=== PATIENT | female | born 1935 | race Caucasian/White ===

== ENCOUNTER 2016-09-12 22:17 | Inpatient (IN) | payer MEDICARE ==
[2016-09-12 23:31] LABS: Hematocrit 40 % (35-47); Hemoglobin 13.1 g/dl (12.0-16.0); Mean Corpuscular HGB Conc 33 g/dl (31-36); Mean Corpuscular Hemoglobin 29 pg (27-31); Mean Corpuscular Volume 89 fL (80-97); Mean Platelet Volume 11 um3 (7.4-10.4); Red Blood Count 4.46 10^6/ul (4.0-5.4); Red Cell Distribution Width 14 % (10.5-15)
[2016-09-12 23:41] LABS: Albumin 3.7 g/dL (3.2-5.2); BUN/Creatinine Ratio 18.2 (8-20); Calcium 9.2 mg/dL (8.6-10.3); EGFR African American 69.2 (>60); EGFR Non-African American 53.8 (>60); Globulin 2.6 g/dL (2-4); Magnesium 1.6 mg/dL (1.9-2.7); Total Bilirubin 0.5 mg/dL (0.2-1.0); Total Protein 6.3 g/dL (6.4-8.9)
[2016-09-12 23:43] LABS: Troponin I 0.03 ng/mL (<0.04)
--- NOTE | 2016-09-13 | ED ---
Kerrie Mcdonald Alfonso, scribed for Rafy Kelly MD on 09/12/16 at 2319 . HPI Chest Pain - HPI Summary HPI Summary: This patient is an 81 year old female presenting to [facility] c/o pain in her shoulder blades that began at 2129. She reports the pain is present at rest and is also in her back. She rates the pain 1/10 in severity. 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 She reports nausea. She denies SOB and diaphoresis. PMHx of [place] (2 years ago). - History of Current Complaint Chief Complaint: EDChestWallPain Time Seen by Provider: 09/12/16 22:49 Hx Obtained From: Patient Onset/Duration: Started Hours Ago - 2129 today, Still Present Timing: Constant Initial Severity: Mild Current Severity: Mild Pain Intensity: 1 Pain Scale Used: 0-10 Numeric Chest Pain Location: Discrete at: - Shoulder blades and back Aggravating Factor(s): Nothing Alleviating Factor(s): NTG 123 - NTGx1, OTC Meds - Baby ASAx1 Associated Signs and Symptoms: Positive: Nausea. Negative: Shortness of Breath , Diaphoresis - Additional Pertinent History Primary Care Physician: [id number] - Allergy/Home Medications Allergies/Adverse Reactions: Allergies Allergy/AdvReac Type Severity Reaction Status Date / Time Codeine Allergy Severe Nausea And Verified 01/05/16 04:11 Vomiting Levofloxacin [From Levaquin] Allergy Severe Tachycardia Verified 01/05/16 04:11 PMH/Surg Hx/FS Hx/Imm Hx Endocrine/Hematology History: Reports: Hx Blood Transfusions, Hx Diabetes - niddm Denies: Hx Anticoagulant Therapy Cardiovascular History: Reports: Hx Angina, Hx Coronary Artery Disease, Hx Hypercholesterolemia, Hx Hypertension - ON MEDS, Hx Myocardial Infarction Denies: Hx Valvular Heart Disease GI History: Reports: Hx Ileostomy - reversed. pt does not know why she had this Denies: Other GI Disorders History: Reports: Hx Acute Renal Failure - kidney removed in 1979, Hx Renal Disease - right nephrectomy Musculoskeletal History: Reports: Hx Arthritis - RIGHT LEG, BACK, Hx Osteoporosis Sensory History: Reports: Hx Cataracts, Hx Contacts or Glasses Denies: Hx Hearing Aid Opthamlomology History: Reports: Hx Cataracts, Hx Contacts or Glasses Neurological History: Denies: Hx Seizures - Surgical History Surgery Procedure, Year, and Place: 5 CYSTS SURGERY AN INFANT ON NECK, [facility] APPENDECTOMY, AGE 5, [facility]. TONSILECTOMY, AGE 6-7, [facility] C SECTION 1966, [facility] RIGHT NEPHRECTOMY, 1979, [facility] COLOSTOMY, 2008, [facility] REVERSAL COLOSTOMY, 2008, [facility] HERNIA 2009, [facility]x Anesthesia Reactions: No - Immunization History Date of Tetanus Vaccine: utd Date of Influenza Vaccine: 12/21/15 Infectious Disease History: No Infectious Disease History: Denies: Traveled Outside the [place] in Last 30 Days - Family History Known Family History: Positive: Diabetes, Other - Positive cancer Family History: No FHx of Malignant Hyperthermia. No FHx of Anesthesia Reaction - Social History Alcohol Use: None Substance Use Type: Reports: None Smoking Status (MU): Former Smoker Type: Cigarettes Amount Used/How Often: 1 pack per day Length of Time of Smoking/Using Tobacco: 30 yrs Have You Smoked in the Last Year: No Review of Systems Negative: Skin Diaphoresis Positive: Chest Pain - Pain in her shoulder blades and back Negative: Shortness Of Breath Positive: Nausea All Other Systems Reviewed And Are Negative: Yes Physical Exam Triage Information Reviewed: Yes Vital Signs On Initial Exam: Initial Vitals BP 178/76 09/12/16 22:39 Vital Signs Reviewed: Yes Appearance: Positive: Well-Appearing Skin: Positive: Warm Head/Face: Positive: Normal Head/Face Inspection Eyes: Positive: LEÓN ENT: Positive: Hearing grossly normal Neck: Positive: Supple Respiratory/Lung Sounds: Positive: Clear to Auscultation, Breath Sounds Present Cardiovascular: Positive: RRR Abdomen Description: Positive: Nontender, Soft Bowel Sounds: Positive: Present Musculoskeletal: Positive: Strength/ROM Intact Neurological: Positive: Alert, Oriented to Person Place, Time - Alexandrea Coma Scale Coma Scale Total: 15 Diagnostics - Vital Signs Vital Signs Temp Pulse Resp BP Pulse Ox 09/12/16 22:44 81 09/12/16 22:41 91 92 09/12/16 22:40 98.1 F 79 20 /76 94 09/12/16 22:39 - Laboratory Lab Results: Lab Results 09/12/16 09/12/16 09/12/16 Range/Units 23:06 23:06 23:06 WBC 8.0 (3.5-10.8) 10^3/ul RBC 4.46 (4.0-5.4) 10^6/ul Hgb 13.1 (12.0-16.0) g/dl Hct 40 (35-47) % MCV 89 (80-97) fL MCH 29 (27-31) pg MCHC 33 (31-36) g/dl RDW 14 (10.5-15) % Plt Count 146 L (150-450) 10^3/ul MPV 11 H (7.4-10.4) um3 Neut % (Auto) 57.9 (38-83) % Lymph % (Auto) 24.3 L (25-47) % [place] % (Auto) 12.7 H (1-9) % Eos % (Auto) 4.0 (0-6) % Baso % (Auto) 1.1 (0-2) % Absolute Neuts (auto) 4.6 (1.5-7.7) 10^3/ul Absolute Lymphs (auto) 1.9 (1.0-4.8) 10^3/ul Absolute Monos (auto) 1.0 H (0-0.8) 10^3/ul Absolute Eos (auto) 0.3 (0-0.6) 10^3/ul Absolute Basos (auto) 0.1 (0-0.2) 10^3/ul Absolute Nucleated RBC 0.01 10^3/ul Nucleated RBC % 0.2 D-Dimer, Quantitative < 200 (Less Than 230) ng/mL Sodium 135 (133-145) mmol/L Potassium 4.0 (3.5-5.0) mmol/L Chloride 102 (101-111) mmol/L Carbon Dioxide 23 (22-32) mmol/L Anion Gap 10 (2-11) mmol/L BUN 18 (6-24) mg/dL Creatinine 0.99 H (0.51-0.95) mg/dL Est GFR ( Amer) 69.2 (>60) Est GFR (Non-Af Amer) 53.8 (>60) BUN/Creatinine Ratio 18.2 (8-20) Glucose 263 H (70-100) mg/dL Lactic Acid (0.5-2.0) mmol/L Calcium 9.2 (8.6-10.3) mg/dL Magnesium 1.6 L (1.9-2.7) mg/dL Total Bilirubin 0.50 (0.2-1.0) mg/dL AST 30 (13-39) U/L ALT 23 (7-52) U/L Alkaline Phosphatase 108 H (34-104) U/L Troponin I 0.03 (<0.04) ng/mL Total Protein 6.3 L (6.4-8.9) g/dL Albumin 3.7 (3.2-5.2) g/dL Globulin 2.6 (2-4) g/dL Albumin/Globulin Ratio 1.4 (1-3) / Range/Units 23:06 WBC (3.5-10.8) 10^3/ul RBC (4.0-5.4) 10^6/ul Hgb (12.0-16.0) g/dl Hct (35-47) % MCV (80-97) fL MCH (27-31) pg MCHC (31-36) g/dl RDW (10.5-15) % Plt Count (150-450) 10^3/ul MPV (7.4-10.4) um3 Neut % (Auto) (38-83) % Lymph % (Auto) (25-47) % [place] % (Auto) (1-9) % Eos % (Auto) (0-6) % Baso % (Auto) (0-2) % Absolute Neuts (auto) (1.5-7.7) 10^3/ul Absolute Lymphs (auto) (1.0-4.8) 10^3/ul Absolute Monos (auto) (0-0.8) 10^3/ul Absolute Eos (auto) (0-0.6) 10^3/ul Absolute Basos (auto) (0-0.2) 10^3/ul Absolute Nucleated RBC 10^3/ul Nucleated RBC % D-Dimer, Quantitative (Less Than 230) ng/mL Sodium (133-145) mmol/L Potassium (3.5-5.0) mmol/L Chloride (101-111) mmol/L Carbon Dioxide (22-32) mmol/L Anion Gap (2-11) mmol/L BUN (6-24) mg/dL Creatinine (0.51-0.95) mg/dL Est GFR ( Amer) (>60) Est GFR (Non-Af Amer) (>60) BUN/Creatinine Ratio (8-20) Glucose (70-100) mg/dL Lactic Acid 1.8 (0.5-2.0) mmol/L Calcium (8.6-10.3) mg/dL Magnesium (1.9-2.7) mg/dL Total Bilirubin (0.2-1.0) mg/dL AST (13-39) U/L ALT (7-52) U/L Alkaline Phosphatase (34-104) U/L Troponin I (<0.04) ng/mL Total Protein (6.4-8.9) g/dL Albumin (3.2-5.2) g/dL Globulin (2-4) g/dL Albumin/Globulin Ratio (1-3) Result Diagrams: 09/12/16 23:06 09/12/16 23:06 Lab Statement: Any lab studies that have been ordered have been reviewed, and results considered in the medical decision making process. - Radiology CXR Radiology Interpretation Completed By: ED Physician - No acute disease - EKG 2243 Cardiac Rate: NL - BPM 82 EKG Rhythm: Sinus Rhythm EKG Interpretation: RBBB Re-Evaluation - Re-Evaluation First Eval Comment: results d/w pt, slightly elevatewd troponin, will admit, d/w hospitalist Chest Pain Course/Dx - Diagnoses Provider Diagnoses: Coronary artery disease - Provider Notifications Instructed by Provider To: Admit As Inpatient Discharge - Discharge Plan Condition: Fair Disposition: ADMITTED TO [facility] Referrals: Edgardo Ahn MD [Primary Care Provider] - The documentation as recorded by the Kerrie babcock Alfonso accurately reflects the service I personally performed and the decisions made by me, Rafy Kelly MD.
--- NOTE | 2016-09-13 07:14 | RAD ---
INDICATION: Chest pain. COMPARISON: Comparison is made with a prior chest CT study from January 05, 2016. Correlation is also made with an exam from June 04, 2009. TECHNIQUE: Dual-energy PA and lateral views of the chest were obtained. FINDINGS: The heart is within normal limits in size. Mediastinal and hilar contours appear within normal limits. The lungs are hyperinflated. There is bilateral apical pleural-parenchymal scarring. The lungs are otherwise clear. No pleural effusion is seen. IMPRESSION: FINDINGS SUGGESTIVE OF COPD, NO EVIDENCE FOR ACUTE FINDING.
[2016-09-13] MEDS ORDERED: Aspirin TAB* 325 MG PO ONE (08:31)
[2016-09-13] MEDS ORDERED: Nitroglycerin TAB 0.4 MG* 0.4 MG TAB SL PRN (08:31)
[2016-09-13] MEDS ORDERED: MAGNESIUM SULFATE IVPB ONE (08:58)
[2016-09-13] MEDS ORDERED: Dextrose 50% Syringe 50 ML* 25 GM/50 ML SYRINGE IV PUSH PRN (09:01)
[2016-09-13] MEDS: Metoprolol Succinate XL TAB* 25 MG PO SCH (10:49)
[2016-09-13] MEDS: Losartan TAB* 25 MG PO SCH (10:49)
[2016-09-13] MEDS: glipiZIDE TAB* 5 MG PO SCH ×2 (10:49→21:38)
[2016-09-13] MEDS: Insulin LISPRO* 1 UNITS UNIT SUBCUT SCH ×3 (12:46→21:39)
[2016-09-13] MEDS: Heparin VIAL(*) 5000 UNITS/ML VIAL (FIVE THOUSAND) SUBCUT SCH ×2 (13:37→21:42)
--- NOTE | 2016-09-13 15:50 | HP ---
CC: Edgardo Ahn MD; Octavio Benjamin MD HISTORY AND PHYSICAL: DATE OF ADMISSION: 09/13/16 TIME OF EVALUATION: 08:30 a.m. PRIMARY CARE PROVIDER: Edgardo Ahn MD STRINGED INSTRUMENT TUNER: Octavio Benjamin MD CHIEF COMPLAINT: Right shoulder blade pain. HISTORY OF PRESENT ILLNESS: Mrs. Bonner is an 81-year-old lady with a past medical history of jeff nary artery disease, status post stent; type 2 diabetes; solitary left kidney, status post right nep hrectomy; hypertension; hyperlipidemia; osteoarthritis; obesity, who presents to the emergency room with complaints of discomfort around her right shoulder blade area. The patient states she was in her usual state of health until she was getting ready to go to bed las t night when she started to have light twinges of discomfort around her right shoulder blade area. She states that the pain was dull in nature and it progressed to the point that it became 8/10 inten sity. She states that the discomfort was similar to the pain she had when she had her heart attack in 2015 and she took 1 nitroglycerin. The pain subsided a little, but it was still present, so she decided to come to the emergency room for further evaluation. She states that after she took the ni tro, she has felt a little nauseated, but did not vomit. She denies diaphoresis, shortness of breat h, dizziness, lightheadedness, but she was concerned because the nature of the symptoms were similar to the symptoms she experienced in the past. She denies doing any different activities yesterday. She states that she did not even need to go pi ck up her mail outside because her neighbor brought it for her. PAST MEDICAL HISTORY: 1. Coronary artery disease. The patient presented with non-STEMI in July 2014. At that time, she w as found to have a critical 95% lesion of the first OM and a stent was placed in the area. She was noted to have 70% disease in the mid LAD, but a stress test done in July 2015 was negative for infarc t or ischemia. 2. Type 2 diabetes. 3. Solitary left kidney, status post right nephrectomy. 4. Hypertension. 5. Hyperlipidemia. 6. Osteoarthritis. 7. Obesity with a BMI of 32.9. 8. CKD, stage 3. 9. Status post appendectomy. 10. Status post . 11. Status post hernia repair. 12. Status post cataract surgery. MEDICATION LIST: 1. Aspirin 81 mg p.o. daily. 2. Atorvastatin 80 mg p.o. at bedtime. 3. Glipizide 5 mg p.o. b.i.d. 4. Losartan 25 mg p.o. daily. 5. Metoprolol succinate 25 mg p.o. daily. ALLERGIES: With CODEINE, the patient had nausea and vomiting and with LEVOFLOXACIN, the patient had tachycardia. FAMILY HISTORY: Mother had a history of diverticulitis. SOCIAL HISTORY: The patient was a smoker with greater than 44-[id number]-[id number] history. No alcohol or drug use. Surrogate decision maker is her daughter, Marisa Albrecht, phone number is [phone]. REVIEW OF SYSTEMS: A 14-point review of systems was performed and the all the pertinent negative an d positive findings are in the HPI. PHYSICAL EXAMINATION GENERAL: The patient is a pleasant, elderly lady, lying in ER stretcher, in no acute distress. VITAL SIGNS: Temperature 98.1, heart rate 69, respiratory rate 19, oxygen saturation 96% on room ai r, blood pressure 162/66. HEENT: Pupils are equal, reactive to light. Moist mucous membranes. CHEST: Breath sounds present bilaterally with no added sounds. CVS: Normal S1, S2. Regular rate and rhythm. ABDOMEN: Soft, nontender, obese. Bowel sounds are present. EXTREMITIES: The patient has bilateral "puffy legs" but no pitting edema. NEUROLOGIC: She is alert, awake, oriented x3. Able to move all 4 extremities. DIAGNOSTIC STUDIES/LAB DATA: CBC showed a WBC of 8.0, hemoglobin of 13.1, hematocrit of 40, platel ets of 146 with 57% neutrophils. D-dimer was less than 200. Chemistry showed a sodium of 135, pota ssium of 4.0, chloride of 102, bicarb of 23, BUN of 18, creatinine of 0.99, glucose of 263, lactic a randa of 1.8, calcium of 9.2. Magnesium of 1.6. LFTs are normal except for an alk phos of 108. Firs t troponin was 0.03, second troponin was 0.03, but her third one at 5:30 a.m. was 0.04. EKG done on September 12 at 2243 showed sinus rhythm at 82 beats per minute with a right bundle-branch block and this is grossly unchanged from her prior one from December 2015. Another EKG was performed on September 13 at 6:24 a.m. and this also did not show any significant ischemic changes. Two-view chest x-ray showed finding suggestive of COPD, but no other acute findings. ASSESSMENT AND PLAN: Mrs. Bonner is an 81-year-old lady with past medical history of coronary jackson ry disease, status post stent; type 2 diabetes; solitary kidney; hypertension; hyperlipidemia; obesi ty that presents to the emergency room with complaints of right shoulder blade pain that she describ ed as similar to the pain she experienced when she had her TX in 2014. As her troponin showed some elevation, the hospitalist service was called for evaluation. 1. Chest pain, rule out acute coronary syndrome. The patient will be admitted as observation to e telemetry floor. We are going to continue to check serial troponins until peak. An echocardiogra m will be ordered and further management will depend on her symptoms and her troponin trend. Depend ing on how it goes, she may require another stress test or further Cardiology evaluation. At this p oint, she is going to receive aspirin in the emergency room and we are going to continue her aspirin , atorvastatin, and metoprolol. At the time of this admission, the patient is chest pain free and d enies any other symptoms. The patient denies any recent trips and does not appear to have any other risk factors for PE. Her D- dimer was negative, so I believe further PE workup is not indicated at this time. 2. Type 2 diabetes. The patient will be continued on her glipizide. We are going to monitor her f ingersticks a.c., h.s. and she will be covered with a Lispro sliding scale as needed. 3. Hypertension. We will continue metoprolol and losartan. If her numbers continue to trend up, jenni ay need to increase one of her medications. 4. Hyperlipidemia. Continue atorvastatin. 5. DVT prophylaxis. The patient has a score of 3 on the DVT Prophylaxis Risk Assessment Guide and she will be started on subcutaneous heparin. 6. Code status is full. TIME SPENT: Approximately 65 minutes were spent with the patient interview, medical record review, physical examination to complete the admission, more than half of this time was spent [id number] w ith the patient in coordination of care. [id number]/[facility] #: [id number]
[2016-09-13] MEDS: Acetaminophen TAB* 325 MG PO PRN (16:45)
[2016-09-13] MEDS: Aspirin Low Dose CHEW TAB* 81 MG PO SCH (21:38)
[2016-09-13] MEDS: Atorvastatin* 80 MG TAB PO SCH (21:38)
[2016-09-14] MEDS: Heparin VIAL(*) 5000 UNITS/ML VIAL (FIVE THOUSAND) SUBCUT SCH ×3 (05:52→21:50)
[2016-09-14] MEDS: Metoprolol Succinate XL TAB* 25 MG PO SCH (09:12)
[2016-09-14] MEDS: glipiZIDE TAB* 5 MG PO SCH ×2 (09:12→21:34)
[2016-09-14] MEDS: Losartan TAB* 25 MG PO SCH (09:12)
[2016-09-14] MEDS: Insulin LISPRO* 1 UNITS UNIT SUBCUT SCH ×4 (09:12→21:34)
--- NOTE | 2016-09-14 09:43 | ECHO ---
Patient: RUI LAYTON [facility] Rec#: [id number] : 1935 Date: 09/14/2016 Age: 81y Height: 157.48 cm / 62.0 in Weight: 81.65 kg / 180.0 lbs Sex: F BSA: 1.83 Room#: 433 Admit Date#: 09/13/2016 Type: Inpatient Referring: Nat Gillespie MD Reading: Amadou Vigil MD Sinker Puller: Vidya Jimenez, DARREN CC: Edgardo Ahn MD CC: Octavio Benjamin MD Transthoracic Echocardiogram Indication: CP BP: 143/81 HR: 79 Rhythm: NSR Findings History: CAD,NSTEMI 2015 with PCI,DM,HTN,obesity CKD stageIII,Greater Than 50 pk/yr smoking history. Technical Comments: The study is technically limited due to patient body habitus. The study is technically limited due to the patient's smoking history. Left Ventricle: The left ventricular chamber size is decreased. Global left ventricular wall motion and contractility are within normal limits. There is normal left ventricular systolic function. The estimated ejection fraction is 55-60%. Abnormal left ventricular diastolic function is observed. Left Atrium: The left atrium is normal in size. Right Ventricle: The right ventricular cavity size is normal. The right ventricular global systolic function is normal. Right Atrium: The right atrial cavity size is normal. Aortic Valve: The aortic valve structure is not well visualized. The aortic valve leaflets are mildly thickened. There is no evidence of aortic regurgitation. There is mild to moderate aortic stenosis. The highest aortic valve velocity was obtained with the standard probe from the A5C view. Equal velocity was achieved with Pedoff from the apical window. Mitral Valve: The mitral valve leaflets are mildly thickened. There is mild mitral regurgitation. Tricuspid Valve: The tricuspid valve leaflets are normal. There is no evidence of tricuspid valve regurgitation. Pulmonic Valve: The pulmonic valve appears normal. There is no evidence of pulmonic regurgitation. There is no pulmonic stenosis. Pericardium: There is no significant pericardial effusion. A pericardial fat pad is visualized. Aorta: The ascending aorta is not well visualized. There is no dilatation of the aortic arch. There is no dilation of the aortic root. Pulmonary Artery: The main pulmonary artery is not well visualized. Venous: The venous system is not well visualized. Conclusions There is normal left ventricular systolic function. The estimated ejection fraction is 55-60%. Global left ventricular wall motion and contractility are within normal limits. The left ventricular chamber size is decreased. There is mild to moderate aortic stenosis. There is mild mitral regurgitation. Since the prior echocardiogram completed 07/28/14, pertinent changes are prior normal left ventricular size reported, prior basal-inferior wall hypokinesis reported and prior mild aortic stenosis reported. Measurements Name Value Normal Range RVIDd (AP) 2D 2.1 cm (0.9 - 2.6) RVDdMajor (2D) 2.2 cm (2.2 - 4.4) RAd ISD 4CH 4.3 cm (3.4 - 4.9) RA (A4C)W 3.3 cm (2.9 - 4.6) IVSd (2D) 0.9 cm (0.6 - 1) LVPWd (2D) 1 cm (0.6 - 1) LVIDd (2D) 3.5 cm (3.6 - 5.4) LVIDs (2D) 2.6 cm - LV FS (2D) 25 % (25 - 45) Aortic Annulus 1.6 cm (1.4 - 2.6) Ao root diameter (2D) 2.6 cm (2.1 - 3.5) Aortic arch 2.4 cm (1.8 - 3.4) Descending Ao 0.9 cm - LA dimension (AP) 2D 3.2 cm (2.3 - 3.8) LAd ISD 4CH 4.7 cm (2.9 - 5.3) LA ISD 4CH W 4 cm (2.5 - 4.5) Name Value Normal Range LA ESV SP 4CH (A/L) 46 ml - LA ESV SP 2CH (A/L) 52 ml - LA ESV BP (A/L) 51 ml - LA ESV BP (A/L) index 28.02 ml/m2 - LA ESV SP 4CH (MOD) 44 ml - LA ESV SP 2CH (MOD) 47 ml - Name Value Normal Range MV E-wave Vmax 1.1 m/sec - MV deceleration time 316 msec - MV A-wave Vmax 1.4 m/sec - MV E:A ratio 0.74 ratio - LV septal e' Vmax 0.05 m/sec - LV lateral e' Vmax 0.06 m/sec - LV E:e' septal ratio 22 ratio - LV E:e' lateral ratio 18.33 ratio - Name Value Normal Range AV Vmax 2.5 m/sec - AV VTI 58.5 cm - AV peak gradient 24.15 mmHg - AV mean gradient 10.02 mmHg - LVOT diameter 2 cm - LVOT Vmax 1 m/sec - LVOT VTI 27 cm - LVOT peak gradient 4.1 mmHg - LVOT mean gradient 1.86 mmHg - TRAVIS (continuity VTI) 1.45 cm2 - Name Value Normal Range PV Vmax 0.9 m/sec - PV peak gradient 3.47 mmHg -
[2016-09-14] MEDS: Acetaminophen TAB* 325 MG PO PRN ×2 (10:23→20:01)
--- NOTE | 2016-09-14 10:30 | PN ---
Subjective Date of Service: 09/14/16 Interval History: HOSPITALIST PROGRESS NOTE Patient seen and examined at bedside. She feels well today, had no further episodes of CP or dyspnea. Family History: Unchanged from Admission Social History: Unchanged from Admission Past Medical History: Unchanged from Admission Objective Active Medications: Acetaminophen (Tylenol Tab*) 650 mg PO Q6H PRN PRN Reason: pain/fever Last Admin: 09/14/16 10:23 Dose: 650 mg Aspirin (Aspirin Low Dose Tab*) 81 mg PO 2100 SKY Last Admin: 09/13/16 21:38 Dose: 81 mg Atorvastatin Calcium (Lipitor*) 80 mg PO BEDTIME [facility] Last Admin: 09/13/16 21:38 Dose: 80 mg Dextrose (D50w Syringe 50 Ml*) 12.5 gm IV PUSH .FOR FS < 60 - SS PRN PRN Reason: FS < 60 Glipizide (Glucotrol Tab*) 5 mg PO BID [facility] Last Admin: 09/14/16 09:12 Dose: 5 mg Heparin Sodium (Porcine) (Heparin Vial(*)) 5,000 units SUBCUT Q8HR [facility] Last Admin: 09/14/16 05:52 Dose: Not Given Insulin Human Lispro (Humalog*) 0 units SUBCUT ACHS [facility] PRN Reason: Protocol Last Admin: 09/14/16 09:12 Dose: 3 units Losartan Potassium (Cozaar Tab*) 25 mg PO DAILY [facility] Last Admin: 09/14/16 09:12 Dose: 25 mg Metoprolol Succinate (Toprol Xl Tab*) 25 mg PO DAILY [facility] Last Admin: 09/14/16 09:12 Dose: 25 mg Vital Signs 09/14/16 07:45 Temperature 97.8 F Pulse Rate 74 Respiratory 16 Rate Blood Pressure 151/69 (mmHg) O2 Sat by Pulse 95 Oximetry Oxygen Devices in Use Now: None Appearance: Pleasant elderly lady lying in bed in NAD. Eyes: No Scleral Icterus Ears/Nose/Mouth/Throat: Mucous Membranes Moist Neck: Trachea Midline Respiratory: Symmetrical Chest Expansion and Respiratory Effort, Clear to Auscultation Cardiovascular: NL Sounds; No Murmurs; No JVD, RRR Abdominal: NL Sounds; No Tenderness; No Distention Extremities: - - "Puffy" legs, no pitting edema Neurological: Alert and Oriented x 3, NL Muscle Strength and Tone Lines/Tubes/Other Access: Clean, Dry and Intact Peripheral IV Nutrition: Taking PO's Result Diagrams: 09/12/16 23:06 09/12/16 23:06 Assess/Plan/Problems-Billing Assessment: Mrs. Bonner is an 81yo F with PMH of CAD s/p stent to Cx, type 2 DM, solitary left kidney, HTN, HLD, obesity, CKD stage 3, who presented to ED with right shoulder blade pain that felt "like my heart attack". - Patient Problems (1) Back pain Comment: - Patient had right shoulder blade pain that felt exactly the same when she had her stents placed last year. - Pain free. - Troponin minimally elevated at 0.04 and no new EKG changes, but high risk patient with JUAN score 5. - Will check echo looking for wall motion abnormalities. - With her high risk presentation, will pursue stress test as inpatient. Plan for pharmacological Myoview in AM. - Continue Aspirin, Metoprolol, Atorvastatin. (2) Diabetes Comment: - Check A1c. - Continue Glipizide and Lispro SS. (3) Hypertension Comment: - Stable. - Continue Metoprolol and Losartan. (4) DVT prophylaxis Comment: - SQ heparin. (5) Full code status Status and Disposition: Will change to inpatient. For stress test tomorrow.
[2016-09-14] MEDS: Atorvastatin* 80 MG TAB PO SCH (21:33)
[2016-09-14] MEDS: Aspirin Low Dose CHEW TAB* 81 MG PO SCH (21:33)
[2016-09-15] MEDS: Heparin VIAL(*) 5000 UNITS/ML VIAL (FIVE THOUSAND) SUBCUT SCH ×3 (05:29→21:03)
[2016-09-15] MEDS: Insulin LISPRO* 1 UNITS UNIT SUBCUT SCH ×4 (09:43→20:15)
[2016-09-15] MEDS: Losartan TAB* 25 MG PO SCH (12:09)
[2016-09-15] MEDS: glipiZIDE TAB* 5 MG PO SCH ×2 (12:09→19:29)
[2016-09-15] MEDS ORDERED: Regadenoson* 0.4 MG/5 ML SYRINGE ONE (13:40)
[2016-09-15] MEDS ORDERED: Ondansetron INJ* 2 MG/ML VIAL ONE (13:41)
--- NOTE | 2016-09-15 13:53 | PN ---
Subjective Date of Service: 09/15/16 Interval History: HOSPITALIST PROGRESS NOTE Patient seen and examined at bedside. She feels well this AM, but had another episode of right shoulder blade pain last night and earlier today. Family History: Unchanged from Admission Social History: Unchanged from Admission Past Medical History: Unchanged from Admission Objective Active Medications: Acetaminophen (Tylenol Tab*) 650 mg PO Q6H PRN PRN Reason: pain/fever Last Admin: 09/14/16 20:01 Dose: 650 mg Aspirin (Aspirin Low Dose Tab*) 81 mg PO 2100 ON LICENSE OF [facility] Last Admin: 09/14/16 21:33 Dose: 81 mg Atorvastatin Calcium (Lipitor*) 80 mg PO BEDTIME ON LICENSE OF [facility] Last Admin: 09/14/16 21:33 Dose: 80 mg Dextrose (D50w Syringe 50 Ml*) 12.5 gm IV PUSH .FOR FS < 60 - SS PRN PRN Reason: FS < 60 Glipizide (Glucotrol Tab*) 5 mg PO BID ON LICENSE OF [facility] Last Admin: 09/15/16 12:09 Dose: 5 mg Heparin Sodium (Porcine) (Heparin Vial(*)) 5,000 units SUBCUT Q8HR ON LICENSE OF [facility] Last Admin: 09/15/16 05:29 Dose: 5,000 units Insulin Human Lispro (Humalog*) 0 units SUBCUT ACHS ON LICENSE OF [facility] PRN Reason: Protocol Last Admin: 09/15/16 09:43 Dose: Not Given Losartan Potassium (Cozaar Tab*) 25 mg PO DAILY ON LICENSE OF [facility] Last Admin: 09/15/16 12:09 Dose: 25 mg Metoprolol Succinate (Toprol Xl Tab*) 25 mg PO DAILY ON LICENSE OF [facility] Last Admin: 09/14/16 09:12 Dose: 25 mg Vital Signs 09/15/16 09/15/16 07:48 08:00 Temperature 97.8 F Pulse Rate 71 Respiratory 20 16 Rate Blood Pressure 153/52 (mmHg) O2 Sat by Pulse 97 Oximetry Oxygen Devices in Use Now: None Appearance: Elderly lady sitting up in a chair in NAD. Eyes: No Scleral Icterus Ears/Nose/Mouth/Throat: Mucous Membranes Moist Neck: Trachea Midline Respiratory: Symmetrical Chest Expansion and Respiratory Effort, Clear to Auscultation Cardiovascular: RRR - Normal S1 and S2 Abdominal: NL Sounds; No Tenderness; No Distention Neurological: Alert and Oriented x 3, NL Muscle Strength and Tone Lines/Tubes/Other Access: Clean, Dry and Intact Peripheral IV Nutrition: Taking PO's Result Diagrams: 09/12/16 23:06 09/12/16 23:06 Assess/Plan/Problems-Billing Assessment: Mrs. Bonner is an 81yo F with PMH of CAD s/p stent to Cx, type 2 DM, solitary left kidney, HTN, HLD, obesity, CKD stage 3, who presented to ED with right shoulder blade pain that felt "like my heart attack". - Patient Problems (1) Back pain Comment: - Patient had right shoulder blade pain that felt exactly the same when she had her stents placed last year. - Pain free. - Troponin minimally elevated at 0.04 and no new EKG changes, but high risk patient with JUAN score 5. - Echo showed no wall motion abnormalities. - With her high risk presentation, will pursue stress test as inpatient. Follow pharmacological Myoview. - Continue Aspirin, Metoprolol, Atorvastatin. (2) Diabetes Comment: - Check A1c. - Continue Glipizide and Lispro SS. (3) Hypertension Comment: - Stable. - Continue Metoprolol and Losartan. (4) DVT prophylaxis Comment: - SQ heparin. (5) Full code status Status and Disposition: Inpatient.
--- NOTE | 2016-09-15 14:19 | RAD ---
Edited for charges. INDICATION: Chest pain COMPARISON: Myocardial SPECT July 23, 2015 TECHNIQUE: A single day SPECT protocol was utilized. Rest images were acquired following the intravenous injection of 10.0 millicuries of technetium 99m tetrofosmin. Pharmacologic stress images were acquired following the intravenous administration of 25.3 millicuries of technetium 99m tetrofosmin. FINDINGS: There are no defects of the stress-induced or fixed nature. The cardiac chamber size is normal. There are no wall motion abnormalities. The ejection fraction is calculated at 74 percent during stress. IMPRESSION: NO DEFECTS OF A STRESS-INDUCED OR FIXED NATURE. NORMAL WALL MOTION AND CONTRACTILITY ASSESSMENT: LOW-RISK Based on imaging criteria from ACC/AHA 2002 Guideline Update for the Management of Patients With Chronic Stable Angina Table 23. Noninvasive Risk Stratification. MTDD
[2016-09-15] MEDS: Metoprolol Succinate XL TAB* 25 MG PO SCH (15:15)
[2016-09-15] MEDS: Acetaminophen TAB* 325 MG PO PRN (16:01)
[2016-09-15] MEDS: Atorvastatin* 80 MG TAB PO SCH (19:29)
[2016-09-15] MEDS: Aspirin Low Dose CHEW TAB* 81 MG PO SCH (19:29)
[2016-09-16] MEDS: Heparin VIAL(*) 5000 UNITS/ML VIAL (FIVE THOUSAND) SUBCUT SCH (06:02)
[2016-09-16 07:50] VITALS: BP 140/42
[2016-09-16 08:05] LABS: BUN/Creatinine Ratio 21.5 (8-20); Calcium 9.1 mg/dL (8.6-10.3); EGFR African American 63.3 (>60); EGFR Non-African American 49.2 (>60); Potassium 4.7 mmol/L (3.5-5.0)
[2016-09-16] MEDS: Metoprolol Succinate XL TAB* 25 MG PO SCH (08:12)
[2016-09-16] MEDS: Losartan TAB* 25 MG PO SCH (08:12)
[2016-09-16] MEDS: glipiZIDE TAB* 5 MG PO SCH (08:12)
[2016-09-16] MEDS ORDERED: Iodixanol* (CONTRAST) 320 MG/ML 100 ML SDV IV ONE (08:40)
--- NOTE | 2016-09-16 09:37 | RAD ---
INDICATION: Right scapula pain. Concern for aortic dissection. Relevant surgical history includes appendectomy, right nephrectomy, colostomy/colostomy reversal and hernia surgery. COMPARISON: CT abdomen pelvis dated June 04, 2009 TECHNIQUE: Axial source images of the chest and abdomen were acquired after the injection of 99 mL of Visipaque 320 intravenous contrast from just above the lung apices to the level of the iliac crests according to an aortic dissection protocol. Delayed images of the kidneys were acquired as well. Coronal and sagittal reconstructed images were acquired. FINDINGS: CHEST: There is a mild degree of cardiomegaly with the heart measuring slightly more than 50% width of the thorax. There is no evidence of pericardial effusion. There is atherosclerotic calcification of the coronary arteries, aortic ring and at the arch of the aorta. There is no pathologic aneurysmal dilatation or visible dissection involving the thoracic aorta. There are no thrombotic filling defects of the centrilobular pulmonary arteries to indicate centrilobular pulmonary embolism. The segmental branches and beyond are less reliably evaluated on this CT examination. There is no mediastinal, hilar, or axillary lymphadenopathy. At the dependent portion of the right lower lobe there is a 4 mm subpleural nodule (image 33 of 64) that was not seen on the June 04, 2009 CT examination. The lungs are otherwise grossly clear. ABDOMEN: There is mixed attenuation atherosclerosis of the abdominal aorta extending to the bifurcation. There is no pathologic aneurysmal dilatation or appearance of aortic dissection. There is mixed attenuation atherosclerosis at the origins of the celiac trunk and superior mesenteric artery causing mild narrowing at the celiac trunk and mild to moderate narrowing at the proximal portion of the superior mesenteric artery. The left renal artery is adequately patent. The liver, pancreas and adrenal glands are grossly normal in appearance. In the dependent portion of the gallbladder there is a 9 mm gallstone. There are no signs of biliary obstruction. The otherwise appropriately attenuating spleen measures 12.8 cm in greatest axial dimension. The left kidney is in appearance without focal mass, calcification or signs of hydronephrosis. Evaluation of the bowel is limited without oral contrast. The visualized segments of small and large bowel are not distended. There is no gross retroperitoneal or mesenteric lymphadenopathy in the visualized portions of the abdomen. Surgical material seen along the anterior abdominal wall consistent with hernia surgery. Multilevel degenerative changes of the thoracic and lumbar spine includes loss of intervertebral disc height and marginal osteophyte formation. There is vacuum disc phenomenon at the lumbar spine. There are no displaced rib fractures or irregularities of either scapula. IMPRESSION: 1. Widespread chronic appearing atherosclerosis involving the thoracic and abdominal aorta without pathologic aneurysmal dilatation or acute dissection. 2. No centrilobular pulmonary embolus. The segmental and more peripheral pulmonary arterial branch arteries are not reliably evaluated on this CTA. 3. Mild splenomegaly of doubtful clinical significance. 4. 4 mm subpleural nodule in the dependent portion of the right lower lobe that was not seen on the June 04, 2009 CT of the abdomen and pelvis. There are no more recent CT examinations of the chest available for comparison. If outside imaging can be made available then comparison can be made to determine chronicity of this nodule. Otherwise this nodule can be followed up according to the Fleischner Society criteria. Please see recommendations attached to the end of this report. 5. Additional chronic, degenerative and iatrogenic findings described in the body of the report. Ref: Rocky H, Edgar JENSEN, Breana G, et al. Guidelines for Management of Small Pulmonary Nodules Detected on CT Scans: A Statement from the Fleischner Society. January 2005 Radiology, 237, 395-400. Recommendations for Follow-Up \T\ Management of Nodules Smaller than 8mm Detected incidentally at CT (average of length and width measurement). LOW RISK PATIENT (minimal or absent Hx of smoking \T\ other known risk factors) <4 mm?..No f/u needed (risk of malignancy <1%). 4-6 mm?..F/U CT at 12 months; if stable then no further f/u (nonsolid or ground glass nodules may require longer f/u to exclude indolent adenocarcinomas). HIGH RISK PATIENT (History of smoking or other known risk factors). <4 mm?..F/U CT at 12 month; if unchanged no further f/u (nonsolid or ground glass nodules may require longer f/u to exclude indolent adenocarcinomas). 4-6 mm?..F/U CT at 6-12 months then at 18-24 months if no change (nonsolid or ground glass nodules may require longer f/u to exclude indolent adenocarcinomas).
--- NOTE | 2016-09-16 09:37 | PN ---
Subjective Date of Service: 09/16/16 Interval History: Patient seen and examined at bedside. She adamantly denies any further episodes of right scapular or chest pain since yesterday. She states, "I'm getting out of here." Denies dizziness, SOB, n/v. Family History: Unchanged from Admission Social History: Unchanged from Admission Past Medical History: Unchanged from Admission Objective Active Medications: Acetaminophen (Tylenol Tab*) 650 mg PO Q6H PRN PRN Reason: pain/fever Last Admin: 09/15/16 16:01 Dose: 650 mg Aspirin (Aspirin Low Dose Tab*) 81 mg PO 2100 [facility] Last Admin: 09/15/16 19:29 Dose: 81 mg Atorvastatin Calcium (Lipitor*) 80 mg PO BEDTIME [facility] Last Admin: 09/15/16 19:29 Dose: 80 mg Dextrose (D50w Syringe 50 Ml*) 12.5 gm IV PUSH .FOR FS < 60 - SS PRN PRN Reason: FS < 60 Glipizide (Glucotrol Tab*) 5 mg PO BID [facility] Last Admin: 09/16/16 08:12 Dose: 5 mg Heparin Sodium (Porcine) (Heparin Vial(*)) 5,000 units SUBCUT Q8HR [facility] Last Admin: 09/16/16 06:02 Dose: 5,000 units Insulin Human Lispro (Humalog*) 0 units SUBCUT ACHS [facility] PRN Reason: Protocol Last Admin: 09/15/16 20:15 Dose: Not Given Losartan Potassium (Cozaar Tab*) 25 mg PO DAILY [facility] Last Admin: 09/16/16 08:12 Dose: 25 mg Metoprolol Succinate (Toprol Xl Tab*) 25 mg PO DAILY [facility] Last Admin: 09/16/16 08:12 Dose: 25 mg Vital Signs 09/15/16 09/15/16 09/15/16 11:12 15:25 18:38 Temperature 98.0 F 97.6 F Pulse Rate 85 82 Respiratory 16 16 18 Rate Blood Pressure 150/86 131/77 (mmHg) O2 Sat by Pulse 96 97 Oximetry 09/15/16 09/15/16 09/16/16 19:14 23:42 03:35 Temperature 97.8 F 98.0 F 97.9 F Pulse Rate 70 68 75 Respiratory 16 16 20 Rate Blood Pressure 154/51 135/46 129/84 (mmHg) O2 Sat by Pulse 96 98 95 Oximetry 09/16/16 09/16/16 07:30 07:51 Temperature 98.2 F Pulse Rate 75 Respiratory 18 18 Rate Blood Pressure 140/42 (mmHg) O2 Sat by Pulse 95 Oximetry Oxygen Devices in Use Now: None Appearance: Elderly female, lying in bed, NAD Eyes: No Scleral Icterus, PERRLA Ears/Nose/Mouth/Throat: Clear Oropharnyx, Mucous Membranes Moist Neck: NL Appearance and Movements; NL JVP Respiratory: Symmetrical Chest Expansion and Respiratory Effort, Clear to Auscultation Cardiovascular: NL Sounds; No Murmurs; No JVD, RRR Abdominal: NL Sounds; No Tenderness; No Distention Extremities: No Edema Skin: No Rash or Ulcers Neurological: Alert and Oriented x 3 Lines/Tubes/Other Access: Clean, Dry and Intact Peripheral IV Nutrition: Taking PO's Result Diagrams: 09/12/16 23:06 09/16/16 06:47 Additional Lab and Data: Lab Results 09/12/16 09/12/16 09/12/16 Range/Units 23:06 23:06 23:06 WBC 8.0 (3.5-10.8) 10^3/ul RBC 4.46 (4.0-5.4) 10^6/ul Hgb 13.1 (12.0-16.0) g/dl Hct 40 (35-47) % MCV 89 (80-97) fL MCH 29 (27-31) pg MCHC 33 (31-36) g/dl RDW 14 (10.5-15) % Plt Count 146 L (150-450) 10^3/ul MPV 11 H (7.4-10.4) um3 Neut % (Auto) 57.9 (38-83) % Lymph % (Auto) 24.3 L (25-47) % [place] % (Auto) 12.7 H (1-9) % Eos % (Auto) 4.0 (0-6) % Baso % (Auto) 1.1 (0-2) % Absolute Neuts (auto) 4.6 (1.5-7.7) 10^3/ul Absolute Lymphs (auto) 1.9 (1.0-4.8) 10^3/ul Absolute Monos (auto) 1.0 H (0-0.8) 10^3/ul Absolute Eos (auto) 0.3 (0-0.6) 10^3/ul Absolute Basos (auto) 0.1 (0-0.2) 10^3/ul Absolute Nucleated RBC 0.01 10^3/ul Nucleated RBC % 0.2 D-Dimer, Quantitative < 200 (Less Than 230) ng/mL Sodium 135 (133-145) mmol/L Potassium 4.0 (3.5-5.0) mmol/L Chloride 102 (101-111) mmol/L Carbon Dioxide 23 (22-32) mmol/L Anion Gap 10 (2-11) mmol/L BUN 18 (6-24) mg/dL Creatinine 0.99 H (0.51-0.95) mg/dL Est GFR ( Amer) 69.2 (>60) Est GFR (Non-Af Amer) 53.8 (>60) BUN/Creatinine Ratio 18.2 (8-20) Glucose 263 H (70-100) mg/dL Lactic Acid (0.5-2.0) mmol/L Calcium 9.2 (8.6-10.3) mg/dL Magnesium 1.6 L (1.9-2.7) mg/dL Total Bilirubin 0.50 (0.2-1.0) mg/dL AST 30 (13-39) U/L ALT 23 (7-52) U/L Alkaline Phosphatase 108 H (34-104) U/L Troponin I 0.03 (<0.04) ng/mL Total Protein 6.3 L (6.4-8.9) g/dL Albumin 3.7 (3.2-5.2) g/dL Globulin 2.6 (2-4) g/dL Albumin/Globulin Ratio 1.4 (1-3) 09/12/16 Range/Units 23:06 WBC (3.5-10.8) 10^3/ul RBC (4.0-5.4) 10^6/ul Hgb (12.0-16.0) g/dl Hct (35-47) % MCV (80-97) fL MCH (27-31) pg MCHC (31-36) g/dl RDW (10.5-15) % Plt Count (150-450) 10^3/ul MPV (7.4-10.4) um3 Neut % (Auto) (38-83) % Lymph % (Auto) (25-47) % [place] % (Auto) (1-9) % Eos % (Auto) (0-6) % Baso % (Auto) (0-2) % Absolute Neuts (auto) (1.5-7.7) 10^3/ul Absolute Lymphs (auto) (1.0-4.8) 10^3/ul Absolute Monos (auto) (0-0.8) 10^3/ul Absolute Eos (auto) (0-0.6) 10^3/ul Absolute Basos (auto) (0-0.2) 10^3/ul Absolute Nucleated RBC 10^3/ul Nucleated RBC % D-Dimer, Quantitative (Less Than 230) ng/mL Sodium (133-145) mmol/L Potassium (3.5-5.0) mmol/L Chloride (101-111) mmol/L Carbon Dioxide (22-32) mmol/L Anion Gap (2-11) mmol/L BUN (6-24) mg/dL Creatinine (0.51-0.95) mg/dL Est GFR ( Amer) (>60) Est GFR (Non-Af Amer) (>60) BUN/Creatinine Ratio (8-20) Glucose (70-100) mg/dL Lactic Acid 1.8 (0.5-2.0) mmol/L Calcium (8.6-10.3) mg/dL Magnesium (1.9-2.7) mg/dL Total Bilirubin (0.2-1.0) mg/dL AST (13-39) U/L ALT (7-52) U/L Alkaline Phosphatase (34-104) U/L Troponin I (<0.04) ng/mL Total Protein (6.4-8.9) g/dL Albumin (3.2-5.2) g/dL Globulin (2-4) g/dL Albumin/Globulin Ratio (1-3) Diagnostic Imaging: CTA shows widespread atherosclerosis involving thoracic and abd aorta without aneurysmal dilatation or acute dissection and is negative for centrilobular PE. 4mm subpleural nodule in the dependent portion of RLL. Assess/Plan/Problems-Billing Assessment: Mrs. Bonner is an 81yo F with PMH of CAD s/p stent to Cx, type 2 DM, solitary left kidney, HTN, HLD, obesity, CKD stage 3, who presented to ED with right shoulder blade pain that felt "like my heart attack". - Patient Problems (1) Atypical chest pain Code(s): R07.89 - OTHER CHEST PAIN Comment: Patient admitted with concern for atypical chest pain and ACS, though the primary complaint was right shoulder blade pain that felt exactly the same when she had her stents placed last year. Now reports being pain free for 24 hours Troponin minimally elevated at 0.04 and no new EKG changes, but high risk patient with JUAN score 5. Echo showed no wall motion abnormalities. Nuclear stress showed no defects of a stress-induced or fixed nature and normal wall motion and contractility. Continue aspirin, metoprolol, atorvastatin. CTA shows widespread atherosclerosis involving thoracic and abd aorta without aneurysmal dilatation or acute dissection and is negative for centrilobular PE. 4mm subpleural nodule in the dependent portion of RLL. Patient to f/u with PCP and have f/u outpatient CT for lung nodule. (2) Coronary artery disease Code(s): I25.10 - ATHSCL HEART DISEASE OF [place] CORONARY ARTERY W/O ANG PCTRS Comment: Echo showed no wall motion abnormalities. Nuclear stress showed no defects of a stress-induced or fixed nature and normal wall motion and contractility. Continue home ASA, metoprolol, statin. (3) Diabetes Current Visit: Yes Code(s): E11.9 - TYPE 2 DIABETES MELLITUS WITHOUT COMPLICATIONS Comment: HgbA1c pending Continue Glipizide and Lispro SS. Referral to [facility] for diabetes education. (4) Hypertension Code(s): I10 - ESSENTIAL (PRIMARY) HYPERTENSION Comment: Stable. Continue metoprolol and losartan. (5) DVT prophylaxis Comment: SQ heparin (6) Full code status Code(s): Z78.9 - OTHER SPECIFIED HEALTH STATUS Status and Disposition: Inpatient. D/c to home.
[2016-09-16] MEDS: Insulin LISPRO* 1 UNITS UNIT SUBCUT SCH (09:58)
--- NOTE | 2016-09-17 16:20 | DS ---
CC: Dr. Ahn * DISCHARGE SUMMARY: DATE OF ADMISSION: 09/13/16 DATE OF DISCHARGE: 09/16/16 ATTENDING PHYSICIAN: Dr. Arcadio Gates * (dictated by Edgar Morataya NP). PRIMARY CARE PROVIDER: Dr. Ahn. PRIMARY DISCHARGE DIAGNOSES: 1. Right scapular pain, was concerned for atypical chest pain and acute coronary syndrome, which is negative. 2. Right pulmonary nodule seen on CT scan. SECONDARY DISCHARGE DIAGNOSES: 1. Coronary artery disease. 2. Type 2 diabetes. 3. Solitary left kidney, status post right nephrectomy. 4. Hypertension. 5. Hyperlipidemia. 6. Osteoarthritis. 7. Obesity with a BMI of 32.9. 8. Chronic kidney disease, stage 3. 9. Status post appendectomy. 10. Status post . 11. Status post hernia repair. 12. Status post cataract surgery. MEDICATIONS AT DISCHARGE: 1. Glipizide 5 mg 1 tab b.i.d. 2. Metoprolol succinate 25 mg daily. 3. Losartan 25 mg 1 tab daily. 4. Atorvastatin 80 mg 1 tab daily. 5. Aspirin 81 mg daily. DIAGNOSTIC TESTING DURING THIS ADMISSION: Transthoracic echocardiogram. Conclusion: There is normal left ventricular systolic function. The estimated ejection fraction is 55% to 60%. Global left ventricular wall motion and contractility are within normal limits. The left ventricular chamber size is decreased. There is mild to moderate aortic stenosis. There is mild mitral regurgitation. Since the prior echocardiogram completed 07/28/14, pertinent changes are prior normal left ventricular size reported, prior basal inferior wall hypokinesis reported, and prior mild aortic stenosis reported. Nuclear medicine scan. Impression: No defects of a stress-induced or fixed nature. Normal wall motion and contractility. CTA of the chest and abdomen. Impression: 1. Wide spread chronic-appearing atherosclerosis involving the thoracic and abdominal aorta without pathologic aneurysmal dilatation or acute dissection. 2. No centrilobular pulmonary embolus. The segmental or more peripheral pulmonary arterial branch arteries are not reliably evaluated on this CTA. 3. Mild splenomegaly of doubtful clinical significance. 4. A 4-mm subpleural nodule on the dependent portion of the right lower lobe that was not seen on the 06/04/09 CT of the abdomen and pelvis. There are no more recent CT examinations of the chest available for comparison. Additional chronic degenerative and iatrogenic findings described in the body of the report. HOSPITAL COURSE OF STAY: For full details, please refer to the H and P provided by Dr. Mendoza on 09/13/16. In summary, Ms. Bonner is an 81-year-old female who presented to the hospital with concern for right shoulder blade pain. The pain eventually progressed to the point that it became an 8/10 intensity and she took nitroglycerin which helped the pain subside a little bit ; however, it was still present so she became concerned and came to the emergency room for further evaluation. She denied any recent strenuous activities. The patient was admitted under observation to the telemetry floor. Her troponins were monitored and were negative. The EKG showed no concern for ischemic changes. Her D-dimer was less than 200. She underwent testing as previously mentioned and had no findings on EKG or stress test concerning for acute coronary syndrome. The patient then underwent of the chest and abdomen to rule out dissection which was negative as well. In 24 hours leading up to her discharge, the patient denies any further right shoulder blade pain and states that this has resolved. She is eager to go home. I did check a hemoglobin A1c, which had not been available at the time of discharge, but has just resulted and reads 7.3. Given the patient's BMI and diabetes, we did refer her to [facility] for additional resources for her comorbid conditions. The patient was advised to follow up with her PCP regarding these findings as well as the pulmonary nodule seen on CT and to have outpatient CT followup. CONCERNS ON DISCHARGE: Ms. Bonner was discharged to home on 09/16/16. She has reported multiple family members who check in on her. She is to follow up with her PCP within the next week and they will call her with the date and time. DIET: Heart-healthy, consistent carbohydrate diet. ACTIVITY: As tolerated. CONDITION: Stable. OUTPATIENT FOLLOWUP NEEDS: The patient will require followup CT of the chest for her pulmonary nodule. The patient is also referred to [facility] for additional diabetic education and bariatric resources. DISPOSITION: To home. TIME SPENT: Time spent on this discharge was approximately 45 minutes. Again, this is only a brief summary of the patient's hospital course of stay. For full details please refer to the full medical record. If you have any further questions or need further assistance, please feel free to contact me at . EDGAR MORATAYA, PATHOLOGY TECH [id number]/[facility] #: [id number] [facility] CENTERAzalea
== END 2016-09-16 11:10 | disposition home or self-care (01) | DRG 313 ==
LOC: ED 22:17 → MEDTELE 09-13 08:26 → OBSVTOIN 09-14 15:00 → MED 09-15 22:54
PROVIDERS: ADMIT Internal Medicine; ATTEND Internal Medicine
DX: R07.9 Chest pain, unspecified (principal); I25.2 Old myocardial infarction; E11.22 Type 2 diabetes mellitus with diabetic chronic kidney disease; I13.10 Hypertensive heart and chronic kidney disease without heart failure, with stage 1 through stage 4 chronic kidney disease, or unspecified chronic kidney disease; Z68.41 Body mass index [BMI] 40.0-44.9, adult; I25.10 Atherosclerotic heart disease of native coronary artery without angina pectoris; N18.3 Chronic kidney disease, stage 3 (moderate); M25.511 Pain in right shoulder; E78.5 Hyperlipidemia, unspecified; M19.90 Unspecified osteoarthritis, unspecified site; R91.1 Solitary pulmonary nodule; E66.01 Morbid (severe) obesity due to excess calories; Z90.5 Acquired absence of kidney; Z95.5 Presence of coronary angioplasty implant and graft; Z79.82 Long term (current) use of aspirin; Z79.84 Long term (current) use of oral hypoglycemic drugs; Z79.899 Other long term (current) drug therapy; Z88.1 Allergy status to other antibiotic agents; Z88.5 Allergy status to narcotic agent; Z87.891 Personal history of nicotine dependence
CPT/HCPCS: 36415; 71020; 71275; 74175; 78452; 80048; 80053; 83036; 83605; 83735; 84484; 85025; 85379; 93005; 93017; 93306; 99283; A9270-GY; A9502; G0378; J1644; J2405; J2785; Q9967

== ENCOUNTER 2017-10-11 01:22 | Emergency (ER) | payer MEDICARE ==
[2017-10-11] MEDS ORDERED: Morphine VIAL* 4 MG/ML VIAL (1 ml vial) IV ONE (01:46)
[2017-10-11] MEDS ORDERED: Ondansetron ODT TAB* 4 MG SL PRN (01:48)
[2017-10-11] MEDS ORDERED: oxyCODONE/Acetamin 5/325 MG* TAB PO ONE (01:56)
[2017-10-11 02:12] LABS: ABS Basophils 0.1 10^3/ul (0-0.2); ABS Eosinophils 0.3 10^3/ul (0-0.6); ABS Lymphocytes 1.7 10^3/ul (1.0-4.8); ABS Monocytes 0.9 10^3/ul (0-0.8); ABS Neutrophils 5.3 10^3/ul (1.5-7.7); ABS Nucleated RBC 0 10^3/ul; Eosinophil % 3.9 % (0-6); Hematocrit 40 % (35-47); Hemoglobin 13.7 g/dl (12.0-16.0); Lymphocyte % 20.2 % (25-47); Mean Corpuscular HGB Conc 34 g/dl (31-36); Mean Corpuscular Hemoglobin 30 pg (27-31); Mean Corpuscular Volume 89 fL (80-97); Mean Platelet Volume 10.7 um3 (7.4-10.4); Nucleated Red Blood Cells % 0.1; Platelet Count 169 10^3/ul (150-450); Red Blood Count 4.51 10^6/ul (4.00-5.40); Red Cell Distribution Width 14 % (10.5-15); White Blood Count 8.3 10^3/ul (3.5-10.8)
[2017-10-11 02:23] LABS: INR 0.9 (0.77-1.02)
[2017-10-11 02:47] LABS: EGFR Non-African American 48.1 (>60)
--- NOTE | 2017-10-11 02:56 | ED ---
HPI Chest Pain - History of Current Complaint Chief Complaint: EDChestPainROMI Time Seen by Provider: 10/11/17 01:31 Hx Obtained From: Patient Pain Intensity: 7 - Additional Pertinent History Primary Care Physician: TAMI - Allergy/Home Medications Allergies/Adverse Reactions: Allergies Allergy/AdvReac Type Severity Reaction Status Date / Time codeine Allergy Nausea And Verified 10/11/17 01:36 Vomiting levofloxacin [From Levaquin] Allergy Tachycardia Verified 10/11/17 01:36 Home Medications: Home Medications Ticagrelor* [Brilinta*] 90 mg PO BID 10/11/17 [History Confirmed 10/11/17] PMH/Surg Hx/FS Hx/Imm Hx Endocrine/Hematology History: Reports: Hx Blood Transfusions, Hx Diabetes - niddm Denies: Hx Anticoagulant Therapy Cardiovascular History: Reports: Hx Angina, Hx Coronary Artery Disease, Hx Hypercholesterolemia, Hx Hypertension - ON MEDS, Hx Myocardial Infarction Denies: Hx Valvular Heart Disease GI History: Reports: Hx Ileostomy - reversed. pt does not know why she had this Denies: Other GI Disorders History: Reports: Hx Acute Renal Failure - kidney removed in 1979, Hx Renal Disease - CKD stage 3 Musculoskeletal History: Reports: Hx Arthritis - RIGHT LEG, BACK, Hx Osteoporosis Sensory History: Reports: Hx Cataracts, Hx Contacts or Glasses Denies: Hx Hearing Aid Opthamlomology History: Reports: Hx Cataracts, Hx Contacts or Glasses Neurological History: Denies: Hx Seizures - Surgical History Surgery Procedure, Year, and Place: 5 CYSTS [place] [facility] [place] 5[place] [facility] [place]GE 6-7[place] [facility] [place] [facility] [place], [place] [facility] [place] [facility] [place], [place] [facility] [place] [facility] [place] CARDIAC STENT Hx Anesthesia Reactions: No - Immunization History Date of Tetanus Vaccine: utd Date of Influenza Vaccine: utd Infectious Disease History: No Infectious Disease History: Denies: Traveled Outside the [place] in Last 30 Days - Family History Known Family History: Positive: Diabetes, Other - Positive cancer Family History: No FHx of Malignant Hyperthermia. No FHx of Anesthesia Reaction - Social History Alcohol Use: None Substance Use Type: Reports: None Smoking Status (MU): Former Smoker Type: Cigarettes Amount Used/How Often: 1 pack per day Length of Time of Smoking/Using Tobacco: 30 yrs Have You Smoked in the Last Year: No Physical Exam - Summary Physical Exam Summary: VITAL SIGNS: Reviewed. GENERAL: Patient is a well-developed and nourished FEMALE who is lying comfortable in the stretcher. Patient is not in any acute respiratory distress. Morbidly obese HEAD AND FACE: No signs of trauma. No ecchymosis, hematomas or skull depressions. No sinus tenderness. EYES: PERRLA, EOMI x 2, No injected conjunctiva, no nystagmus. EARS: Hearing grossly intact. Ear canals and tympanic membranes are within normal limits. MOUTH: Oropharynx within normal limits. NECK: Supple, trachea is midline, no adenopathy, no JVD, no carotid bruit, no c- spine tenderness, neck with full ROM. CHEST: Symmetric, no tenderness at palpation LUNGS: Clear to auscultation bilaterally. No wheezing or crackles. CVS: Regular rate and rhythm, S1 and S2 present, no murmurs or gallops appreciated. ABDOMEN: Soft, non-tender. No signs of distention. No rebound no guarding, and no masses palpated. Bowel sounds are normal. EXTREMITIES: FROM in all major joints, no edema, no cyanosis or clubbing. Tenderness in the mid-upper back. Pain with movement. NEURO: Alert and oriented x 3. No acute neurological deficits. Speech is normal and follows commands. SKIN: Dry and warm Patient preferred sitting on stretcher rather than laying because of pain. Triage Information Reviewed: Yes Vital Signs On Initial Exam: Initial Vitals Temp Pulse Resp BP Pulse Ox 99.1 F 79 18 152/70 93 10/11/17 01:27 10/11/17 01:27 10/11/17 01:27 10/11/17 01:27 10/11/17 01:27 Vital Signs Reviewed: Yes Diagnostics - Vital Signs Vital Signs Temp Pulse Resp BP Pulse Ox 10/11/17 02:02 18 10/11/17 02:00 20 10/11/17 01:47 11 10/11/17 01:27 99.1 F 79 18 152/70 93 - Laboratory Lab Results: Lab Results 10/11/17 10/11/17 10/11/17 Range/Units 02:01 02:01 02:01 WBC 8.3 (3.5-10.8) 10^3/ul RBC 4.51 (4.00-5.40) 10^6/ul Hgb 13.7 (12.0-16.0) g/dl Hct 40 (35-47) % MCV 89 (80-97) fL MCH 30 (27-31) pg MCHC 34 (31-36) g/dl RDW 14 (10.5-15) % Plt Count 169 (150-450) 10^3/ul MPV 10.7 H (7.4-10.4) um3 Neut % (Auto) 64.1 (38-83) % Lymph % (Auto) 20.2 L (25-47) % [place] % (Auto) 10.7 H (0-7) % Eos % (Auto) 3.9 (0-6) % Baso % (Auto) 1.1 (0-2) % Absolute Neuts (auto) 5.3 (1.5-7.7) 10^3/ul Absolute Lymphs (auto) 1.7 (1.0-4.8) 10^3/ul Absolute Monos (auto) 0.9 H (0-0.8) 10^3/ul Absolute Eos (auto) 0.3 (0-0.6) 10^3/ul Absolute Basos (auto) 0.1 (0-0.2) 10^3/ul Absolute Nucleated RBC 0 10^3/ul Nucleated RBC % 0.1 INR (Anticoag Therapy) 0.90 (0.77-1.02) APTT 31.7 (26.0-36.3) seconds Sodium 137 (135-145) mmol/L Potassium 4.4 (3.5-5.0) mmol/L Chloride 103 (101-111) mmol/L Carbon Dioxide 25 (22-32) mmol/L Anion Gap 9 (2-11) mmol/L BUN 13 (6-24) mg/dL Creatinine 1.09 H (0.51-0.95) mg/dL Est GFR ( Amer) 58.1 (>60) Est GFR (Non-Af Amer) 48.1 (>60) BUN/Creatinine Ratio 11.9 (8-20) Glucose 229 H (70-100) mg/dL Lactic Acid (0.5-2.0) mmol/L Calcium 9.0 (8.6-10.3) mg/dL Magnesium 1.8 L (1.9-2.7) mg/dL Total Bilirubin 0.50 (0.2-1.0) mg/dL AST 38 (13-39) U/L ALT 21 (7-52) U/L Alkaline Phosphatase 85 (34-104) U/L Troponin I Pending Total Protein 6.6 (6.4-8.9) g/dL Albumin 3.8 (3.2-5.2) g/dL Globulin 2.8 (2-4) g/dL Albumin/Globulin Ratio 1.4 (1-3) 10/11/17 Range/Units 02:01 WBC (3.5-10.8) 10^3/ul RBC (4.00-5.40) 10^6/ul Hgb (12.0-16.0) g/dl Hct (35-47) % MCV (80-97) fL MCH (27-31) pg MCHC (31-36) g/dl RDW (10.5-15) % Plt Count (150-450) 10^3/ul MPV (7.4-10.4) um3 Neut % (Auto) (38-83) % Lymph % (Auto) (25-47) % [place] % (Auto) (0-7) % Eos % (Auto) (0-6) % Baso % (Auto) (0-2) % Absolute Neuts (auto) (1.5-7.7) 10^3/ul Absolute Lymphs (auto) (1.0-4.8) 10^3/ul Absolute Monos (auto) (0-0.8) 10^3/ul Absolute Eos (auto) (0-0.6) 10^3/ul Absolute Basos (auto) (0-0.2) 10^3/ul Absolute Nucleated RBC 10^3/ul Nucleated RBC % INR (Anticoag Therapy) (0.77-1.02) APTT (26.0-36.3) seconds Sodium (135-145) mmol/L Potassium (3.5-5.0) mmol/L Chloride (101-111) mmol/L Carbon Dioxide (22-32) mmol/L Anion Gap (2-11) mmol/L BUN (6-24) mg/dL Creatinine (0.51-0.95) mg/dL Est GFR ( Amer) (>60) Est GFR (Non-Af Amer) (>60) BUN/Creatinine Ratio (8-20) Glucose (70-100) mg/dL Lactic Acid 1.7 (0.5-2.0) mmol/L Calcium (8.6-10.3) mg/dL Magnesium (1.9-2.7) mg/dL Total Bilirubin (0.2-1.0) mg/dL AST (13-39) U/L ALT (7-52) U/L Alkaline Phosphatase (34-104) U/L Troponin I Total Protein (6.4-8.9) g/dL Albumin (3.2-5.2) g/dL Globulin (2-4) g/dL Albumin/Globulin Ratio (1-3) Result Diagrams: 10/11/17 02:01 10/11/17 02:01 Lab Statement: Any lab studies that have been ordered have been reviewed, and results considered in the medical decision making process. - EKG 0134 Cardiac Rate: NL - 78 BPM EKG Rhythm: Sinus Rhythm EKG Interpretation: Incomplete RBBB, non-spectific t wave changes Discharge - Discharge Plan Referrals: Edgardo Ahn MD [Primary Care Provider] -
--- NOTE | 2017-10-11 03:05 | ED ---
Back Pain - HPI Summary HPI Summary: This is scribe Kunal Heart documenting for attending Dr. Jayla Bustillo MD. A 82 y/o female VEGA presents to ED c/o back pain reaching 6-7/10 in severity. According to the patient, she started having pain between her shoulder blades around 2300. Pt denies any other symptoms, besides the back pain she is otherwise healthy. Pt denies SOB. Movement aggravates the symptoms. Sitting up alleviates the symptoms. It was noted that the patient had the same pain during her previous [place]. - History of Current Complaint Chief Complaint: EDChestPainROMI Stated Complaint: GENERAL Time Seen by Provider: 10/11/17 01:31 Hx Obtained From: Patient Onset/Duration: Sudden Onset, Lasting Hours, Still Present Onset/Duration: Started Hours Ago Timing: Constant Back Pain Location: Is Discrete @ - Between shoulder blades Severity Initially: Severe Severity Currently: Severe Pain Intensity: 7 Pain Scale Used: 0-10 Numeric Aggravating Symptom(s): Movement Alleviating Symptom(s): Other - Sitting up - Allergies/Home Medications Allergies/Adverse Reactions: Allergies Allergy/AdvReac Type Severity Reaction Status Date / Time codeine Allergy Nausea And Verified 10/11/17 01:36 Vomiting levofloxacin [From Levaquin] Allergy Tachycardia Verified 10/11/17 01:36 Home Medications: Home Medications Ticagrelor* [Brilinta*] 90 mg PO BID 10/11/17 [History Confirmed 10/11/17] PMH/Surg Hx/FS Hx/Imm Hx Endocrine/Hematology History: Reports: Hx Blood Transfusions, Hx Diabetes - niddm Denies: Hx Anticoagulant Therapy Cardiovascular History: Reports: Hx Angina, Hx Coronary Artery Disease, Hx Hypercholesterolemia, Hx Hypertension - ON MEDS, Hx Myocardial Infarction Denies: Hx Valvular Heart Disease GI History: Reports: Hx Ileostomy - reversed. pt does not know why she had this Denies: Other GI Disorders History: Reports: Hx Acute Renal Failure - kidney removed in 1979, Hx Renal Disease - CKD stage 3 Musculoskeletal History: Reports: Hx Arthritis - RIGHT LEG, BACK, Hx Osteoporosis Sensory History: Reports: Hx Cataracts, Hx Contacts or Glasses Denies: Hx Hearing Aid Opthamlomology History: Reports: Hx Cataracts, Hx Contacts or Glasses Neurological History: Denies: Hx Seizures - Surgical History Surgery Procedure, Year, and Place: 5 CYSTS SURGERY AN INFANT ON NECK, [facility] [place] APPENDECTOMY, AGE 5, [facility] [place]. TONSILECTOMY, AGE [age], [facility] [place]. C SECTION 1966, [facility] [place]. [place] NEPHRECTOMY, 1979, [facility] [place] COLOSTOMY, 2008, [facility] [place] REVERSAL COLOSTOMY, 2008, [facility] [place]. HERNIA 2009, [facility] [place] CARDIAC STENT Hx Anesthesia Reactions: No - Immunization History Date of Tetanus Vaccine: utd Date of Influenza Vaccine: utd Infectious Disease History: No Infectious Disease History: Denies: Traveled Outside the [place] in Last 30 Days - Family History Known Family History: Positive: Diabetes, Other - Positive cancer Family History: No FHx of Malignant Hyperthermia. No FHx of Anesthesia Reaction - Social History Alcohol Use: None Substance Use Type: Reports: None Smoking Status (MU): Former Smoker Type: Cigarettes Amount Used/How Often: 1 pack per day Length of Time of Smoking/Using Tobacco: 30 yrs Have You Smoked in the Last Year: No Review of Systems Negative: Fever Negative: Shortness Of Breath Positive: Other - NEGATIVEL: Back pain Physical Exam - Summary Physical Exam Summary: VITAL SIGNS: Reviewed. GENERAL: Patient is a well-developed and nourished FEMALE who is lying comfortable in the stretcher. Patient is not in any acute respiratory distress. Morbidly obese HEAD AND FACE: No signs of trauma. No ecchymosis, hematomas or skull depressions. No sinus tenderness. EYES: PERRLA, EOMI x 2, No injected conjunctiva, no nystagmus. EARS: Hearing grossly intact. Ear canals and tympanic membranes are within normal limits. MOUTH: Oropharynx within normal limits. NECK: Supple, trachea is midline, no adenopathy, no JVD, no carotid bruit, no c- spine tenderness, neck with full ROM. CHEST: Symmetric, no tenderness at palpation LUNGS: Clear to auscultation bilaterally. No wheezing or crackles. CVS: Regular rate and rhythm, S1 and S2 present, no murmurs or gallops appreciated. ABDOMEN: Soft, non-tender. No signs of distention. No rebound no guarding, and no masses palpated. Bowel sounds are normal. EXTREMITIES: FROM in all major joints, no edema, no cyanosis or clubbing. Tenderness in the mid-upper back. Pain with movement. NEURO: Alert and oriented x 3. No acute neurological deficits. Speech is normal and follows commands. SKIN: Dry and warm Patient preferred sitting on stretcher rather than laying because of pain. Triage Information Reviewed: Yes Vital Signs On Initial Exam: Initial Vitals Temp Pulse Resp BP Pulse Ox 99.1 F 79 18 152/70 93 10/11/17 01:27 10/11/17 01:27 10/11/17 01:27 10/11/17 01:27 10/11/17 01:27 Vital Signs Reviewed: Yes Completion Of Physical Exam Limited Due To: Dementia Appearance: Positive: Well-Appearing Skin: Positive: Warm, Skin Color Reflects Adequate Perfusion Head/Face: Positive: Normal Head/Face Inspection Eyes: Positive: Normal, EOMI ENT: Positive: Normal ENT inspection Neck: Positive: Supple, Nontender Respiratory/Lung Sounds: Positive: Clear to Auscultation, Breath Sounds Present. Negative: Rales, Tracheal Deviation Cardiovascular: Positive: Normal, Pulses are Symmetrical in both Upper and Lower Extremities, S1, S2 Abdomen Description: Positive: Nontender, No Organomegaly, Soft. Negative: Distended Bowel Sounds: Positive: Present Musculoskeletal: Positive: Other - OLD ECCHYMOTIC SWOLLEN AREA OVER THE LEFT HIP Neurological: Positive: Sensory/Motor Intact. Negative: Focal Deficit @ - Patient is alert and oriented to name., Slurred Speech Diagnostics - Vital Signs Vital Signs Temp Pulse Resp BP Pulse Ox 10/11/17 02:02 18 10/11/17 02:00 20 10/11/17 01:47 11 10/11/17 01:27 99.1 F 79 18 152/70 93 - Laboratory Lab Results: Lab Results 10/11/17 10/11/17 10/11/17 Range/Units 02:01 02:01 02:01 WBC 8.3 (3.5-10.8) 10^3/ul RBC 4.51 (4.00-5.40) 10^6/ul Hgb 13.7 (12.0-16.0) g/dl Hct 40 (35-47) % MCV 89 (80-97) fL MCH 30 (27-31) pg MCHC 34 (31-36) g/dl RDW 14 (10.5-15) % Plt Count 169 (150-450) 10^3/ul MPV 10.7 H (7.4-10.4) um3 Neut % (Auto) 64.1 (38-83) % Lymph % (Auto) 20.2 L (25-47) % [place] % (Auto) 10.7 H (0-7) % Eos % (Auto) 3.9 (0-6) % Baso % (Auto) 1.1 (0-2) % Absolute Neuts (auto) 5.3 (1.5-7.7) 10^3/ul Absolute Lymphs (auto) 1.7 (1.0-4.8) 10^3/ul Absolute Monos (auto) 0.9 H (0-0.8) 10^3/ul Absolute Eos (auto) 0.3 (0-0.6) 10^3/ul Absolute Basos (auto) 0.1 (0-0.2) 10^3/ul Absolute Nucleated RBC 0 10^3/ul Nucleated RBC % 0.1 INR (Anticoag Therapy) 0.90 (0.77-1.02) APTT 31.7 (26.0-36.3) seconds Sodium 137 (135-145) mmol/L Potassium 4.4 (3.5-5.0) mmol/L Chloride 103 (101-111) mmol/L Carbon Dioxide 25 (22-32) mmol/L Anion Gap 9 (2-11) mmol/L BUN 13 (6-24) mg/dL Creatinine 1.09 H (0.51-0.95) mg/dL Est GFR ( Amer) 58.1 (>60) Est GFR (Non-Af Amer) 48.1 (>60) BUN/Creatinine Ratio 11.9 (8-20) Glucose 229 H (70-100) mg/dL Lactic Acid (0.5-2.0) mmol/L Calcium 9.0 (8.6-10.3) mg/dL Magnesium 1.8 L (1.9-2.7) mg/dL Total Bilirubin 0.50 (0.2-1.0) mg/dL AST 38 (13-39) U/L ALT 21 (7-52) U/L Alkaline Phosphatase 85 (34-104) U/L Troponin I Pending Total Protein 6.6 (6.4-8.9) g/dL Albumin 3.8 (3.2-5.2) g/dL Globulin 2.8 (2-4) g/dL Albumin/Globulin Ratio 1.4 (1-3) / Range/Units 02:01 WBC (3.5-10.8) 10^3/ul RBC (4.00-5.40) 10^6/ul Hgb (12.0-16.0) g/dl Hct (35-47) % MCV (80-97) fL MCH (27-31) pg MCHC (31-36) g/dl RDW (10.5-15) % Plt Count (150-450) 10^3/ul MPV (7.4-10.4) um3 Neut % (Auto) (38-83) % Lymph % (Auto) (25-47) % [place] % (Auto) (0-7) % Eos % (Auto) (0-6) % Baso % (Auto) (0-2) % Absolute Neuts (auto) (1.5-7.7) 10^3/ul Absolute Lymphs (auto) (1.0-4.8) 10^3/ul Absolute Monos (auto) (0-0.8) 10^3/ul Absolute Eos (auto) (0-0.6) 10^3/ul Absolute Basos (auto) (0-0.2) 10^3/ul Absolute Nucleated RBC 10^3/ul Nucleated RBC % INR (Anticoag Therapy) (0.77-1.02) APTT (26.0-36.3) seconds Sodium (135-145) mmol/L Potassium (3.5-5.0) mmol/L Chloride (101-111) mmol/L Carbon Dioxide (22-32) mmol/L Anion Gap (2-11) mmol/L BUN (6-24) mg/dL Creatinine (0.51-0.95) mg/dL Est GFR ( Amer) (>60) Est GFR (Non-Af Amer) (>60) BUN/Creatinine Ratio (8-20) Glucose (70-100) mg/dL Lactic Acid 1.7 (0.5-2.0) mmol/L Calcium (8.6-10.3) mg/dL Magnesium (1.9-2.7) mg/dL Total Bilirubin (0.2-1.0) mg/dL AST (13-39) U/L ALT (7-52) U/L Alkaline Phosphatase (34-104) U/L Troponin I Total Protein (6.4-8.9) g/dL Albumin (3.2-5.2) g/dL Globulin (2-4) g/dL Albumin/Globulin Ratio (1-3) Result Diagrams: 10/11/17 02:01 10/11/17 02:01 Lab Statement: Any lab studies that have been ordered have been reviewed, and results considered in the medical decision making process. - Radiology CXR Radiology Interpretation Completed By: ED Physician - EKG 0134 Cardiac Rate: NL - 78 BPM EKG Rhythm: Sinus Rhythm EKG Interpretation: Incomplete RBBB. Non-spectific T-wave changes Back Pain Course/Dx - Course Course Of Treatment: Patients symptoms are atypical for cardiac origin. Symptoms are most likely muscular skeletal. Patient responded to Percocet. Patient will be discharged with a diagnosis of back pain. Patients Troponin is steady and mildly elevated from previous visits. - Diagnoses Provider Diagnoses: Back pain Discharge - Sign-Out/Discharge Documenting (check all that apply): Patient Departure - DISCHARGE - Discharge Plan Condition: Stable Disposition: HOME Patient Education Materials: Back Pain (ED) Referrals: Edgardo Ahn MD [Primary Care Provider] - 2 Days Additional Instructions: RETURN TO ED FOR ANY NEW OR WORSENING SYMPTOMS. - Billing Disposition and Condition Condition: STABLE Disposition: Home
[2017-10-11 05:29] VITALS: BP 147/60
--- NOTE | 2017-10-11 11:47 | RAD ---
Indication: Chest pain. Comparison: April 01, 2017 CT. Technique: Upright AP 0210 hours Report: Elevated lung volumes and both diffuse mild prominence of the interstitial markings and patchy rarefaction of the mid to upper lung zone interstitial markings. No focal pulmonary lesion, compelling alveolar consolidation, pleural effusion, pneumothorax. Upper normal heart size. Unremarkable central pulmonary vasculature and mediastinal contours. IMPRESSION: #. Stigmata of obstructive lung disease. No acute pulmonary or cardiac process evident. R0
== END 2017-10-11 05:53 | disposition home or self-care (01) ==
LOC: ED 01:22
DX: M54.9 Dorsalgia, unspecified (principal); I45.10 Unspecified right bundle-branch block; I25.2 Old myocardial infarction; I25.10 Atherosclerotic heart disease of native coronary artery without angina pectoris; I10 Essential (primary) hypertension; F17.210 Nicotine dependence, cigarettes, uncomplicated; Z79.899 Other long term (current) drug therapy; Z95.5 Presence of coronary angioplasty implant and graft; Z90.5 Acquired absence of kidney; Z88.5 Allergy status to narcotic agent; Z88.3 Allergy status to other anti-infective agents
CPT/HCPCS: 36415; 71045; 80053; 83605; 83735; 84484; 85025; 85610; 85730; 93005; 99283; A9270-GY; J2270

== ENCOUNTER 2017-12-19 22:01 | Observation (INO) | payer MEDICARE ==
[2017-12-19] MEDS ORDERED: Aspirin 81 mg CHEW TAB* 81 MG TAB.CHEW PO ONE (23:09)
--- NOTE | 2017-12-19 23:09 | ED ---
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 The sx resolved by the time of the consultation.She denies CP but notes a dyspnea and a feeling of chest heaviness. She too 1 NTG to no relief. Her last stress test took place in 2006. - History of Current Complaint Chief Complaint: EDShortnessOfBreath Time Seen by Provider: 12/19/17 22:21 Hx Obtained From: Patient Onset/Duration: Lasting Hours - 2 hours, Still Present Alleviating Factors: Nothing Associated Signs & Symptoms: Negative - CP - Allergy/Home Medications Allergies/Adverse Reactions: Allergies Allergy/AdvReac Type Severity Reaction Status Date / Time codeine Allergy Nausea And Verified 10/11/17 01:36 Vomiting levofloxacin [From Levaquin] Allergy Tachycardia Verified 10/11/17 01:36 Home Medications: Home Medications Pioglitazone HCl [Actos] 15 mg PO DAILY 12/19/17 [History Confirmed 12/19/17] Prochlorperazine Maleate 1 - 2 tab PO QID PRN 12/19/17 [History Confirmed ] PMH/Surg Hx/FS Hx/Imm Hx Previously Healthy: No Endocrine/Hematology History: Reports: Hx Blood Transfusions, Hx Diabetes - niddm Denies: Hx Anticoagulant Therapy Cardiovascular History: Reports: Hx Angina, Hx Coronary Artery Disease, Hx Hypercholesterolemia, Hx Hypertension - ON MEDS, Hx Myocardial Infarction Denies: Hx Valvular Heart Disease GI History: Reports: Hx Ileostomy - reversed. pt does not know why she had this Denies: Other GI Disorders History: Reports: Hx Acute Renal Failure - kidney removed in 1979, Hx Renal Disease - CKD stage 3 Musculoskeletal History: Reports: Hx Arthritis - RIGHT LEG, BACK, Hx Osteoporosis Sensory History: Reports: Hx Cataracts, Hx Contacts or Glasses Denies: Hx Hearing Aid Opthamlomology History: Reports: Hx Cataracts, Hx Contacts or Glasses Neurological History: Denies: Hx Seizures - Surgical History Surgery Procedure, Year, and Place: 5 CYSTS SURGERY AN INFANT ON NECK, [facility]. APPENDECTOMY, AGE 5, [facility]. TONSILECTOMY, AGE 6-7, [facility]. C SECTION 1966, [facility]. RIGHT NEPHRECTOMY, 1979, [facility]. COLOSTOMY, 2008, [facility]. REVERSAL COLOSTOMY, 2008, [facility]. HERNIA 2009, [facility]. CARDIAC STENT Hx Anesthesia Reactions: No - Immunization History Date of Tetanus Vaccine: utd Date of Influenza Vaccine: fall 2016 Infectious Disease History: No Infectious Disease History: Denies: Traveled Outside the [place] in Last 30 Days - Family History Known Family History: Positive: Diabetes, Other - Positive cancer Family History: No FHx of Malignant Hyperthermia. No FHx of Anesthesia Reaction - Social History Occupation: Retired Alcohol Use: None Substance Use Type: Reports: None Smoking Status (MU): Former Smoker Type: Cigarettes Amount Used/How Often: 1 pack per day Length of Time of Smoking/Using Tobacco: 30 yrs Have You Smoked in the Last Year: No Review of Systems Negative: Chest Pain Respiratory: Other - Positive: Dyspnea Positive: Shortness Of Breath All Other Systems Reviewed And Are Negative: Yes Physical Exam - Summary Physical Exam Summary: Appearance: Well appearing, no pain distress Skin: warm, dry, reflects adequate perfusion Head/face: normal Eyes: EOMI, LEÓN ENT: normal Neck: supple, non-tender Respiratory: CTA, breath sounds present Cardiovascular: RRR, pulses symmetrical Abdomen: non-tender, soft Bowel sounds : present Musculoskeletal: normal, strength/ROM intact Neuro: normal, sensory motor intact, A&Ox3 Triage Information Reviewed: Yes Vital Signs On Initial Exam: Initial Vitals Temp Pulse Resp BP Pulse Ox 98.6 F 85 24 156/65 94 12/19/17 22:12 12/19/17 22:12 12/19/17 22:12 12/19/17 22:12 12/19/17 22:12 Vital Signs Reviewed: Yes Diagnostics - Vital Signs Vital Signs Temp Pulse Resp BP Pulse Ox 12/19/17 22:12 98.6 F 85 24 156/65 94 - Laboratory Result Diagrams: 12/19/17 23:22 12/19/17 23:22 Lab Statement: Any lab studies that have been ordered have been reviewed, and results considered in the medical decision making process. - Radiology CXR Radiology Interpretation Completed By: ED Physician - IMPRESSION: This is a normal chest X-ray. 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 She denies CP but notes a dyspnea and feeling of chest heaviness. She too 1 NTG to no relief. Her last stress test occurred in 2006. A physical exam, CXR and EKG are all unremarkable but labs indicate elevated troponin. In the ED course, the pt was given Aspirin 324 mg PO which improved the symptoms. I discussed the care of the pt with Dr. Perez who agreed to admit the pt. Patient will be admitted with a final Dx of CP, ruled out for NH. The pt is agreeable with this plan. Allergies noted. - Diagnoses Differential Diagnosis/HQI/PQRI: Positive: CHF, Chest Wall Pain, NH, Pneumonia Provider Diagnoses: Chest pain, Chest pain, rule out acute myocardial infarction - Physician Notifications Discussed Care of Patient With: Dandre Perez - Hospitalist Time Discussed With Above Provider: 01:01 Instructed by Provider To: Admit As Inpatient Discharge - Sign-Out/Discharge Documenting (check all that apply): Patient Departure - Discharge Plan Condition: Improved Disposition: ADMITTED TO [facility] Referrals: Edgardo Ahn MD [Primary Care Provider] - - Billing Disposition and Condition Condition: IMPROVED Disposition: Admitted to [facility] - Attestation Statements Document Initiated by Scribe: Yes Documenting Scribe: Diana Ivan Provider For Whom Scribe is Documenting (Include Credential): Cheo Agustin MD Scribe Attestation: Diana Mcdonald , scribed for Cheo Agustin MD on 12/20/17 at 0158. Scribe Documentation Reviewed: Yes Provider Attestation: The documentation as recorded by the scribDiana garrido accurately reflects the service I personally performed and the decisions made by , Cheo Agustin MD
[2017-12-19 23:29] LABS: ABS Basophils 0.1 10^3/ul (0-0.2); ABS Eosinophils 0.4 10^3/ul (0-0.6); ABS Lymphocytes 1.9 10^3/ul (1.0-4.8); ABS Neutrophils 6.7 10^3/ul (1.5-7.7); ABS Nucleated RBC 0 10^3/ul; Eosinophil % 3.5 % (0-6); Hematocrit 39 % (35-47); Hemoglobin 13.4 g/dl (12.0-16.0); Lymphocyte % 19.2 % (25-47); Mean Corpuscular HGB Conc 34 g/dl (31-36); Mean Corpuscular Hemoglobin 30 pg (27-31); Mean Corpuscular Volume 89 fL (80-97); Mean Platelet Volume 10.4 um3 (7.4-10.4); Nucleated Red Blood Cells % 0.1; Platelet Count 184 10^3/ul (150-450); Red Blood Count 4.41 10^6/ul (4.00-5.40); Red Cell Distribution Width 13 % (10.5-15); White Blood Count 10.1 10^3/ul (3.5-10.8)
[2017-12-19 23:42] LABS: INR 0.92 (0.77-1.02)
[2017-12-19 23:46] LABS: EGFR Non-African American 47.6 (>60)
[2017-12-20] MEDS ORDERED: Ondansetron ODT TAB* 4 MG PO PRN (04:01)
[2017-12-20] MEDS ORDERED: Acetaminophen TAB* 325 MG PO PRN (04:01)
--- NOTE | 2017-12-20 04:03 | HP ---
H&P (Free Text) History and Physical: PCP: Ju Ahn MD Cardiology: Ehsan Benjamin MD Date/Time: 12/20/2017 0330 CC: chest pain HPI: Mrs Bonner is an 82YO female HX CAD/FL/stent, DM2, HTN, HLD, CKD 3, & obesity who on Thursday had the sudden onset of N/V lasting ~4 hours without other symptomotology. The following day she had soreness in the R lateral chest which resolved. Last night around 1999 while watching TV she developed substernal non-radiating chest heaviness associated with nausea and sweating, but no SOB, palpitations, or light-headedness. She went outside thinking she may vomit but didn't. She did develop generalized weakness and had to lower herself to her knees. Her granddaughter wanted her to come to the ED which she initially resisted but finally agreed to. Currently she only complains of a soreness in the R posterior back similar to the previous episode after vomiting. She does state this feels very different from her previous [place]. PMedHx CAD/FL/stent DM2 HTN HLD CKD 3 solitary kidney obesity Ambulatory Orders Losartan TAB* [Cozaar TAB*] 1 tab PO DAILY 05/23/12 Aspirin 81 mg CHEW TAB* 1 tab PO QPM 08/29/14 Atorvastatin* [Lipitor 80 MG*] 1 tab PO DAILY 08/29/14 glipiZIDE TAB* [Glucotrol TAB*] 1 tab PO BID 08/29/14 Metoprolol Succinate [Toprol Xl] 25 mg PO DAILY 07/22/15 Pioglitazone HCl [Actos] 15 mg PO DAILY 12/19/17 Prochlorperazine Maleate 1 - 2 tab PO QID PRN 12/19/17 Allergies codeine Allergy (Verified 10/11/17 01:36) Nausea And Vomiting levofloxacin [From Levaquin] Allergy (Verified 10/11/17 01:36) Tachycardia PSurgHx OU cataract extractions R nephrectomy appendectomy section hernia repair SocHx: former smoker w/ >50PYHX, denies alcohol & recreational drugs; , lives alone; DNR/I code status FamHx: reviewed & non-contributory to presentation ROS: as above, otherwise reviewed and all were negative vitals: Vital Signs Temp 37.0 C 12/19/17 22:12 Pulse 59 12/20/17 01:14 Resp 18 12/20/17 01:14 BP 169/51 12/20/17 01:14 Pulse Ox 96 12/20/17 01:14 Intake & Output 12/19/17 12/19/17 12/20/17 11:59 23:59 11:59 Weight 86.183 kg Constitutional: NAD, normally developed, obese elderly white female HEENM: atraumatic; sclera/conjunctiva: anicteric/clear; hearing: clinically intact; oropharynx: clear, mucosa moist Neck: soft tissue: non-tender; thyroid: normal Pulmonary: clear to auscultation bilaterally, good aeration, no accessory muscle use CV: BR/RR, normal S1S2, no carotid bruit, no jugular venous distention, 1+ B DP/ PT, trace BLE edema Abdominal: soft, non-distended, non-tender, no rebound/guarding/rigidity, normoactive bowel sounds, no hepatosplenomegaly or masses, no costovertebral angle tenderness Musculoskeletal: general: grossly intact, non-tender Integumental: normal appearance and texture of exposed skin Psychiatric orientation: AA&O to PPS affect: calm mood: cooperative eye contact: good content: reliable responses: timely insight: fair Testing: Lab Results 12/19/17 12/19/17 12/19/17 Range/Units 23:22 23:22 23:22 WBC 10.1 (3.5-10.8) 10^3/ul RBC 4.41 (4.00-5.40) 10^6/ul Hgb 13.4 (12.0-16.0) g/dl Hct 39 (35-47) % MCV 89 (80-97) fL MCH 30 (27-31) pg MCHC 34 (31-36) g/dl RDW 13 (10.5-15) % Plt Count 184 (150-450) 10^3/ul MPV 10.4 (7.4-10.4) um3 Neut % (Auto) 66.2 (38-83) % Lymph % (Auto) 19.2 L (25-47) % [place] % (Auto) 10.1 H (0-7) % Eos % (Auto) 3.5 (0-6) % Baso % (Auto) 1.0 (0-2) % Absolute Neuts (auto) 6.7 (1.5-7.7) 10^3/ul Absolute Lymphs (auto) 1.9 (1.0-4.8) 10^3/ul Absolute Monos (auto) 1.0 H (0-0.8) 10^3/ul Absolute Eos (auto) 0.4 (0-0.6) 10^3/ul Absolute Basos (auto) 0.1 (0-0.2) 10^3/ul Absolute Nucleated RBC 0 10^3/ul Nucleated RBC % 0.1 INR (Anticoag Therapy) 0.92 (0.77-1.02) APTT 33.1 (26.0-36.3) seconds Sodium 138 (135-145) mmol/L Potassium 4.1 (3.5-5.0) mmol/L Chloride 104 (101-111) mmol/L Carbon Dioxide 26 (22-32) mmol/L Anion Gap 8 (2-11) mmol/L BUN 16 (6-24) mg/dL Creatinine 1.10 H (0.51-0.95) mg/dL Est GFR ( Amer) 57.5 (>60) Est GFR (Non-Af Amer) 47.6 (>60) BUN/Creatinine Ratio 14.5 (8-20) Glucose 150 H (70-100) mg/dL Lactic Acid (0.5-2.0) mmol/L Calcium 8.8 (8.6-10.3) mg/dL Total Bilirubin 0.60 (0.2-1.0) mg/dL AST 30 (13-39) U/L ALT 22 (7-52) U/L Alkaline Phosphatase 92 (34-104) U/L Troponin I 0.05 H* (<0.04) ng/mL B-Natriuretic Peptide ( - 100) pg/mL Total Protein 6.4 (6.4-8.9) g/dL Albumin 3.8 (3.2-5.2) g/dL Globulin 2.6 (2-4) g/dL Albumin/Globulin Ratio 1.5 (1-3) 12/19/17 12/19/17 12/20/17 Range/Units 23:22 23:22 01:58 WBC (3.5-10.8) 10^3/ul RBC (4.00-5.40) 10^6/ul Hgb (12.0-16.0) g/dl Hct (35-47) % MCV (80-97) fL MCH (27-31) pg MCHC (31-36) g/dl RDW (10.5-15) % Plt Count (150-450) 10^3/ul MPV (7.4-10.4) um3 Neut % (Auto) (38-83) % Lymph % (Auto) (25-47) % [place] % (Auto) (0-7) % Eos % (Auto) (0-6) % Baso % (Auto) (0-2) % Absolute Neuts (auto) (1.5-7.7) 10^3/ul Absolute Lymphs (auto) (1.0-4.8) 10^3/ul Absolute Monos (auto) (0-0.8) 10^3/ul Absolute Eos (auto) (0-0.6) 10^3/ul Absolute Basos (auto) (0-0.2) 10^3/ul Absolute Nucleated RBC 10^3/ul Nucleated RBC % INR (Anticoag Therapy) (0.77-1.02) APTT (26.0-36.3) seconds Sodium (135-145) mmol/L Potassium (3.5-5.0) mmol/L Chloride (101-111) mmol/L Carbon Dioxide (22-32) mmol/L Anion Gap (2-11) mmol/L BUN (6-24) mg/dL Creatinine (0.51-0.95) mg/dL Est GFR ( Amer) (>60) Est GFR (Non-Af Amer) (>60) BUN/Creatinine Ratio (8-20) Glucose (70-100) mg/dL Lactic Acid 1.1 (0.5-2.0) mmol/L Calcium (8.6-10.3) mg/dL Total Bilirubin (0.2-1.0) mg/dL AST (13-39) U/L ALT (7-52) U/L Alkaline Phosphatase (34-104) U/L Troponin I 0.04 H* (<0.04) ng/mL B-Natriuretic Peptide 75 ( - 100) pg/mL Total Protein (6.4-8.9) g/dL Albumin (3.2-5.2) g/dL Globulin (2-4) g/dL Albumin/Globulin Ratio (1-3) ECG, personally reviewed: NSR rate 71, no ischemia CXR, personally reviewed: no acute process Impression: 82F presenting with chest pain for r/o ACS DIAGNOSIS & PLAN Primary chest pain r/o ACS : telemetry : trend troponin : aspirin : supplemental oxygen : supportive care Secondary CAD/FL/stent : continue aspirin DM2 : check A1c : consistent carb diet : ACHS glucometry w/ correctional lispro : continue glipizide & pioglitazone HTN : continue losartan, metoprolol HLD : continue atorvastatin CKD 3 solitary kidney s/p R nephrectomy : avoid nephrotoxic agents : periodic monitoring Admission Rational: Inpatient as without the above interventions the risk of impending adverse outcome is unacceptably high; inappropriate for the outpatient setting DVTp: heparin SQ Code Status: DNR/I, MOLST filled out HCP: Daughter, Marisa Albrecht
[2017-12-20] MEDS ORDERED: NS 0.9% 1000 ML* 1,000 ML IV SCH (04:15)
[2017-12-20] MEDS: Omeprazole CAP* 20 MG PO SCH (05:41)
[2017-12-20 06:20] LABS: EGFR Non-African American 49.6 (>60)
--- NOTE | 2017-12-20 07:33 | RAD ---
HISTORY: sob COMPARISONS: October 11, 2017 VIEWS: 1: frontal AP view of the chest at 11:30 PM FINDINGS: LINES AND TUBES: None. CARDIOMEDIASTINAL SILHOUETTE: The cardiomediastinal silhouette is normal for portable technique. PLEURA: The costophrenic angles are sharp. No pleural abnormalities are noted. LUNG PARENCHYMA: There is hyperinflation. ABDOMEN: The upper abdomen is clear. There is no subphrenic gas. BONES AND SOFT TISSUES: Degenerative changes are noted. IMPRESSION: COPD. NO ACTIVE CARDIOPULMONARY DISEASE. R1
[2017-12-20] MEDS: Losartan TAB* 25 MG PO SCH (09:42)
[2017-12-20] MEDS: Atorvastatin* 80 MG TAB PO SCH (09:42)
[2017-12-20] MEDS: Docusate CAP* 100 MG PO SCH ×2 (09:43→19:59)
[2017-12-20] MEDS: Metoprolol Succinate XL TAB* 25 MG PO SCH (09:43)
[2017-12-20] MEDS: glipiZIDE TAB* 5 MG PO SCH ×2 (09:43→20:00)
[2017-12-20] MEDS: Insulin LISPRO* 1 UNITS UNIT SUBCUT SCH ×4 (09:43→21:45)
[2017-12-20] MEDS: Pioglitazone TAB* 15 MG PO SCH (10:45)
--- NOTE | 2017-12-20 11:51 | PN ---
Hospitalist Progress Note Date of Service: 12/20/17 I have seen and examined Ms. Bonner this morning. She has had no further chest pain. She explains to me that she had an episode of nausea/vomiting/ diarrhea on Thursday that was related to [employer] sausage biscuit (this was not surprising to her--she usually gets sick when she eats fast food, and she doesn' t normally eat sausage or eggs). Then she felt well Thursday-Thursday and resumed her usual activity, when Thursday evening she had chest discomfort and knew she "just didn't feel right," and it felt similar to her UT in 2014, so she asked her daughter to bring her to the ED. Her troponin was 0.05, 0.04, and 0.04. EKG shows an old RBBB. In summary, Ms. Bonner is an 82 year old female with history of CAD with a stent in the OM1 from 2014, at which time she had other nonocclusive coronary disease, and poorly controlled DM who presented with an episode of chest discomfort last night that resolved on its own. Given her history and known disease, she warrants a stress test inpatient and agrees to stay for one tomorrow.
[2017-12-20] MEDS ORDERED: Aspirin 81 mg CHEW TAB* 81 MG TAB.CHEW PO SCH (18:00)
[2017-12-20] MEDS: Magnesium Oxide TAB* 400 MG PO ONE ×2 (18:50→19:44)
[2017-12-21] MEDS: Omeprazole CAP* 20 MG PO SCH (06:06)
[2017-12-21] MEDS: Insulin LISPRO* 1 UNITS UNIT SUBCUT SCH ×2 (08:00→13:31)
[2017-12-21] MEDS: Pioglitazone TAB* 15 MG PO SCH (08:23)
[2017-12-21] MEDS: Losartan TAB* 25 MG PO SCH (08:24)
[2017-12-21] MEDS: glipiZIDE TAB* 5 MG PO SCH (08:24)
[2017-12-21] MEDS: Docusate CAP* 100 MG PO SCH (08:24)
[2017-12-21] MEDS: Atorvastatin* 80 MG TAB PO SCH (08:24)
[2017-12-21] MEDS ORDERED: Regadenoson* 0.4 MG/5 ML SYRINGE ONE (12:15)
--- NOTE | 2017-12-21 12:39 | RAD ---
INDICATION: Chest pain. Previous myocardial infarction, angioplasty, stent. Multiple risk factors for coronary artery disease. COMPARISON: September 15, 2016 TECHNIQUE: 10.400 mCi of Tc-99m Myoview were administered IV. SPECT images of the heart were obtained. Later on the same day. Under the direction of Dr. Goldman, the patient was given an IV injection of a pharmacologic stress agent. Subsequently, the patient was given an IV injection of 26.330 mCi Tc-99m Myoview. SPECT images of the heart were obtained and a gated wall motion study was performed. FINDINGS: Gated wall motion images were obtained at stress and demonstrate hypokinesia at the septum without significant change. The calculated left ventricular ejection fraction is 72 % at stress. Estimated LEFT ventricular end diastolic volume is 44 mL. TID 1.04. Based on review of the attenuation corrected and non corrected images the distribution of radiopharmaceutical within the myocardium on the stress and rest images is within normal limits. No compelling fixed or reversible regions of hypoperfusion evident. IMPRESSION: #. No evidence for stress induced myocardial ischemia or presence of an infarct. #. Unchanged hypokinesia at the septum. Normal range estimated LEFT ventricular ejection fraction. ASSESSMENT: Low risk based on nuclear portion. Based on imaging criteria from ACC/AHA 2002 Guideline Update for the Management of Patients With Chronic Stable Angina Table 23. Noninvasive Risk Stratification.
[2017-12-21] MEDS: Metoprolol Succinate XL TAB* 25 MG PO SCH (13:02)
[2017-12-21 13:03] VITALS: BP 124/53
--- NOTE | 2017-12-22 02:53 | DS ---
CC: Dr. Ahn; Dr. Benjamin * DISCHARGE SUMMARY: DATE OF ADMISSION: 12/20/17 DATE OF DISCHARGE: 12/21/17 PATIENT OF ADMITTING HOSPITALIST: Dr. Danrde Perez. ATTENDING HOSPITALIST WHILE PATIENT HERE: Dr. Kierra Gonzalez.* (DICTATED BY WALLACE JADE) PRIMARY CARE PHYSICIAN: Dr. Ahn. PRIMARY DRYING EQUIPMENT OPERATOR: Dr. Benjamin. ADMISSION DIAGNOSES: 1. Chest pain. 2. History of coronary artery disease with myocardial infarction and stent placement in the past. 3. Type 2 diabetes mellitus. 4. Hypertension. 5. Hyperlipidemia. 6. Chronic kidney disease at stage 3. 7. Morbid obesity. DISCHARGE DIAGNOSES: 1. Chest pain. 2. History of coronary artery disease with myocardial infarction and stent placement in the past. 3. Type 2 diabetes mellitus. 4. Hypertension. 5. Hyperlipidemia. 6. Chronic kidney disease at stage 3. 7. Morbid obesity. PROCEDURE: Nuclear stress test with low-risk probability on 12/21/17. HISTORY OF PRESENT ILLNESS: Mrs. Bonner is an 82-year-old female with history of coronary artery disease, hypertension, diabetes mellitus, hyperlipidemia and morbid obesity, who had prior cardiac catheterization with stent placement back in 2014, who presented to the emergency room on the late evening hours of with complaints of sudden onset of nausea, vomiting lasting about 4 hours accompanied by chest pain. She described her lateral right-sided chest pain as being dull with sharp episodes radiating to her back started last night while she was watching TV and then developed substernal nonradiating chest heaviness later that night. She denied any shortness of breath, fever, chills, or any other associated symptoms. She has multiple risk factors for coronary artery disease including history of OH with cardiac catheterization and stent placement. She has seen Dr. Benjamin as an outpatient. She had cardiac workup in the emergency room including troponin that was slightly elevated at 0.05. Her EKG showed no changes, only right bundle branch block that appeared to be present in previous EKGs as well. Given her multiple risk factors and the fact that she had prior stenting in the past, the patient was admitted for observation at telemetry and to consider stress test on the following day. HOSPITAL COURSE: The patient was admitted under hospitalist services to telemetry unit. Her chest pain eventually resolved prior to admission and her troponin was trended and happened to be slightly declining at 0.04 on the second and third draw. She was maintained on her aspirin dose as well as supplemental oxygen. She was n.p.o. after midnight and then she was taken to the nuclear medicine suite the following morning where she had a nuclear stress test. Her stress test showed low probability for any ischemic disease and her ejection fraction was 72% calculated at stress. The patient denied any recurrent chest pain overnight. Her laboratory workup was essentially unremarkable upon admission. Her glucose checks were reasonable q.a.c. and q.h.s. with no need for insulin coverage while she was in the hospital. She had a prior hemoglobin A1c that was done on admission revealing value of 8.2, for which I discussed with the patient the need to follow up with her primary care physician to see if any change in her medication or initiation of insulin would be recommended. This morning, on exam, she was stable and afebrile with vitals of 98 degrees for temperature, pulse of 73, blood pressure 124/53, and O2 sat of 96% on room air. She was ambulatory out of bed. Her lungs were clear to auscultation bilaterally. Her heart was regular rate and rhythm without rubs, murmurs, or gallops. Her abdomen was soft, nontender, and nondistended. The patient will be discharged to home today and she is going to follow up with Dr. Ahn tomorrow as a routine health maintenance followup. DISCHARGE MEDICATIONS: Include: 1. Aspirin 81 mg p.o. daily. 2. Lipitor 80 mg p.o. daily. 3. Glipizide 5 mg p.o. b.i.d. 4. Losartan 25 mg p.o. daily. 5. Metoprolol succinate 25 mg p.o. daily. 6. Actos 15 mg p.o. daily. 7. Compazine 5 mg tablets 1 every 6 hours as needed for nausea. WALLACE JADE [id number]/[facility] #: [id number] [facility]ITALAzalea
== END 2017-12-21 15:00 | disposition home or self-care (01) ==
LOC: ED 22:01 → MEDTELE 12-20 03:59
PROVIDERS: ADMIT Hospitalist; ATTEND Internal Medicine
DX: R07.9 Chest pain, unspecified (principal); I25.10 Atherosclerotic heart disease of native coronary artery without angina pectoris; I25.2 Old myocardial infarction; E11.9 Type 2 diabetes mellitus without complications; E78.5 Hyperlipidemia, unspecified; I12.0 Hypertensive chronic kidney disease with stage 5 chronic kidney disease or end stage renal disease; N18.3 Chronic kidney disease, stage 3 (moderate); E66.01 Morbid (severe) obesity due to excess calories; Z79.899 Other long term (current) drug therapy; Z79.84 Long term (current) use of oral hypoglycemic drugs; Z79.82 Long term (current) use of aspirin; Z88.1 Allergy status to other antibiotic agents; Z88.8 Allergy status to other drugs, medicaments and biological substances; Z87.891 Personal history of nicotine dependence; R06.02 Shortness of breath; Z95.5 Presence of coronary angioplasty implant and graft; I45.10 Unspecified right bundle-branch block
CPT/HCPCS: 36415; 71045; 78452; 80048; 80053; 83036; 83605; 83735; 83880; 84484; 85025; 85610; 85730; 93005; 93017; 96360; 96361; 99284; A9270-GY; A9502; G0378; J2785

== ENCOUNTER 2018-08-14 17:18 | Emergency (ER) | payer MEDICARE ==
[2018-08-14 18:49] LABS: INR 0.96 (0.82-1.09)
[2018-08-14 19:04] LABS: CO2 Carbon Dioxide 21 mmol/L (22-32); Calcium 9.1 mg/dL (8.6-10.3); Chloride 106 mmol/L (101-111); Sodium 137 mmol/L (135-145)
[2018-08-14 19:08] LABS: Troponin I 0.03 ng/mL (<0.04)
[2018-08-14 19:09] LABS: ALT 15 U/L (7-52); Albumin/Globulin Ratio 1.5 (1-3); Alkaline Phosphatase 91 U/L (34-104); BUN/Creatinine Ratio 15.5 (8-20); Blood Urea Nitrogen 18 mg/dL (6-24); EGFR Non-African American 44.6 (>60); Globulin 2.6 g/dL (2-4); Glucose 203 mg/dL (70-100); Total Protein 6.6 g/dL (6.4-8.9)
[2018-08-14 19:10] LABS: Anion Gap 10 mmol/L (2-11)
--- NOTE | 2018-08-14 19:12 | ED ---
HPI Chest Pain - HPI Summary HPI Summary: Patient is an 83-year-old female with history of CAD, status post CO and single stent placement in 2004. Patient called the ambulance today because she just didn't feel right, and she had midsternal chest pain radiating to her bilateral arms, that was aching in quality, and rated it a 7 out of 10 after vacuuming. Pt also had chest pressure last pm that resolved on its own. Patient took one nitroglycerin without relief. She last had chest pain a few months ago she had a stress test not too long ago. The chest pain is not getting worse while she is in the emergency department but it staying the same, perhaps a bit better than it was at home. She had nausea earlier but none at present. She has no headache, no dizziness, no vomiting. She was diaphoretic and had chills, but she had no fever. She's had a cough productive of green sputum for one week. She states she's had 13 surgeries. She has a positive family history for cardiac disease. Current medications include metoprolol succinate 25 mg, atorvastatin 80 mg daily, losartan 25 mg daily, glipizide 5 mg daily and aspirin 81 mg daily. She has not taken her evening medications. She was given ASA and NTG by EMS. Pt's daughter and granddaughter are with her in the ED. - History of Current Complaint Chief Complaint: EDChestPainROMI Time Seen by Provider: 08/14/18 17:51 Hx Obtained From: Patient, Family/Director Of Audiology - daughter and granddaughter, EMS Onset/Duration: Started Hours Ago Timing: Constant Initial Severity: Moderate Current Severity: Moderate Pain Intensity: 6 Pain Scale Used: 0-10 Numeric Chest Pain Location: Mid Sternal Chest Pain Radiates: Yes Chest Pain Radiates To:: Arm Character: Pressure/Squeezing Aggravating Factor(s): Exertion - vacuuming Alleviating Factor(s): Nothing - no relief with NTG Associated Signs and Symptoms: Positive: Chills, Diaphoresis, Productive Cough - Additional Pertinent History Primary Care Physician: [id number] - Allergy/Home Medications Allergies/Adverse Reactions: Allergies Allergy/AdvReac Type Severity Reaction Status Date / Time codeine Allergy Nausea And Verified 10/11/17 01:36 Vomiting levofloxacin [From Levaquin] Allergy Tachycardia Verified 10/11/17 01:36 Home Medications: Home Medications Rosuvastatin Calcium 40 mg PO DAILY 08/14/18 [History Confirmed 08/14/18] Ticagrelor* [Brilinta*] 90 mg PO ONCE 08/14/18 [History Confirmed 08/14/18] PMH/Surg Hx/FS Hx/Imm Hx Endocrine/Hematology History: Reports: Hx Blood Transfusions, Hx Diabetes - type II Denies: Hx Anticoagulant Therapy Cardiovascular History: Reports: Hx Angina, Hx Coronary Artery Disease - Stent, Hx Hypercholesterolemia, Hx Hypertension - ON MEDS, Hx Myocardial Infarction - 2004 with one stent Denies: Hx Valvular Heart Disease Respiratory History: Denies: Hx Asthma, Hx Chronic Obstructive Pulmonary Disease (COPD) GI History: Reports: Hx Ileostomy - reversed. pt does not know why she had this Denies: Other GI Disorders History: Reports: Hx Acute Renal Failure - kidney removed in 1979, Hx Renal Disease - CKD stage 3 Musculoskeletal History: Reports: Hx Arthritis - RIGHT LEG, BACK, Hx Osteoporosis Sensory History: Reports: Hx Cataracts, Hx Contacts or Glasses Denies: Hx Eye Injury, Hx Legally Blind, Hx Hearing Aid, Hx Hearing Problem Opthamlomology History: Reports: Hx Cataracts, Hx Contacts or Glasses Denies: Hx Eye Injury, Hx Legally Blind Neurological History: Denies: Hx Seizures - Surgical History Surgery Procedure, Year, and Place: 5 CYSTS [place] [facility] [place]EN[place] AGE 5, [facility] [place] TONSILECTOM[place], AGE 6-7, [facility] [place], [facility] [place], [place], [facility] [place], [place], [facility] [place]VERSAL [place]OSTOMY, 2008, [facility] [place], [facility] [place] CARDIAC STENT "13 surgeries" Hx Anesthesia Reactions: No Infectious Disease History: No Infectious Disease History: Denies: Hx Clostridium Difficile, Hx Hepatitis, Hx of Known/Suspected MRSA, Hx Shingles, Hx Tuberculosis, Traveled Outside the [place] in Last 30 Days - Family History Known Family History: Positive: Cardiac Disease, Diabetes, Other - Positive cancer Family History: No FHx of Malignant Hyperthermia. No FHx of Anesthesia Reaction - Social History Alcohol Use: None Substance Use Type: Reports: None Smoking Status (MU): Former Smoker Type: Cigarettes Amount Used/How Often: 1 pack per day Length of Time of Smoking/Using Tobacco: approx 40 years Have You Smoked in the Last Year: No Review of Systems Positive: Chills, Skin Diaphoresis Positive: Chest Pain Positive: Cough Gastrointestinal: Negative Positive: no symptoms reported Musculoskeletal: Negative Skin: Negative Neurological: Negative Psychological: Normal All Other Systems Reviewed And Are Negative: Yes Physical Exam - Summary Physical Exam Summary: Appearance: well-appearing, moderate pain distress, obese Skin: Warm, color reflects adequate perfusion, dry Head: Normal Head/Face inspection, atraumatic Eyes: Conjunctiva clear ENT: Normal inspection Neck: Supple, no nodes, no JVD Respiratory: Lungs clear, normal breath sounds, no respiratory distress Cardio: RRR, No murmur, pulses normal, brisk capillary refill Abdomen: Soft, nontender Bowel sounds: Present Musculoskeletal: Strength Intact/ROM intact, no calf tenderness, no edema. Psychological: Normal Neuro: Alert, muscle tone normal, no focal deficit Triage Information Reviewed: Yes Vital Signs On Initial Exam: Initial Vitals Temp Pulse Resp BP Pulse Ox 97.7 F 67 19 195/96 95 08/14/18 17:32 08/14/18 17:32 08/14/18 17:32 08/14/18 17:32 08/14/18 17:32 Vital Signs Reviewed: Yes Diagnostics - Vital Signs Vital Signs Temp Pulse Resp BP Pulse Ox 08/14/18 17:32 97.7 F 67 19 195/96 95 - Laboratory Lab Results: Lab Results 08/14/18 Range/Units 18:35 INR (Anticoag Therapy) 0.96 (0.82-1.09) Result Diagrams: 08/14/18 22:29 08/14/18 23:36 Lab Statement: Any lab studies that have been ordered have been reviewed, and results considered in the medical decision making process. - EKG 1739 Cardiac Rate: NL - 67 BPM EKG Rhythm: Sinus Rhythm EKG Comparison: No Significant Change - Compared to EKG on 12/21/2017 Summary of EKG Findings: Nml AV, Prolonged IV CT (188), Incomplete RBBB, nml QTc , no acute changes Re-Evaluation - Re-Evaluation First Eval Re-Evaluation Time: 21:30 Change: Improved Comment: Chest pain is improved. Rates it 2-3. BP is elevated 202/110. P 69. Will give pt's usual night time BP meds and statin. Metoprolol Succ 25mg, Losartan 25mg, and Atorvastatin 80mg po Chest Pain Course/Dx - Course Course Of Treatment: 83 yo F with hx CAD, CO, S/P one stent presents to the ED via EMS that she called herself, due to chest pressure radiating to her bilateral arms and nausea that began at approximately 1300. She states she also didn't feel right. She took one nitroglycerin without relief. She rated the pain 7 out of 10. The nausea has resolved. She has no headache dizziness no vomiting she was diaphoretic and had chills. Patient states she's had a cough productive of green phlegm for one week. No fever. EMS gave patient 324 mg of aspirin. They also gave nitroglycerin without relief. Patient's first troponin was negative. Patient's blood pressure was elevated on reevaluation at 21:30 at 202/110. She was given her nighttime meds: metoprolol succinate 25mg, losartan 25 mg, and her atorvastatin 80 mg. She is signed out to Dr. Cody at 21:30 with chest x-ray, repeat troponin, potassium and CBC pending. - Chest Pain Differential Diagnosis/HQI/PQRI: Acute CO, ACS, Angina, CHF, GI Disease, Lower Respiratory Infection - Diagnoses Provider Diagnoses: Chest pain, Hypertension, poor control Discharge - Sign-Out/Discharge Documenting (check all that apply): Sign-Out Patient Signing out patient TO: Alejandro Cody - 08/14/18 2100, pending 3 hr troponin, CBC, CXR Patient Received Moderate/Deep Sedation with Procedure: No - Discharge Plan Condition: Good Disposition: HOME Patient Education Materials: Chest Pain (ED) Referrals: Edgardo Ahn MD [Primary Care Provider] - 3 Days - Billing Disposition and Condition Condition: GOOD Disposition: Home - Attestation Statements Document Initiated by Chel: Yes Documenting Scribe: Elle Layne Provider For Whom Chel is Documenting (Include Credential): Dr. Taisha Rubin MD Scribe Attestation: Elle Mcdonald scribed for Dr. Taisha Rubin MD on 08/16/18 at 2321. Scribe Documentation Reviewed: Yes Provider Attestation: The documentation as recorded by the Elle babcock accurately reflects the service I personally performed and the decisions made by me, Dr. Taisha Rubin MD Status of Scribe Document: Viewed
[2018-08-14] MEDS ORDERED: Metoprolol Succinate XL TAB* 25 MG PO ONE (21:28)
[2018-08-14] MEDS ORDERED: Atorvastatin* 80 MG TAB PO ONE (21:28)
[2018-08-14] MEDS ORDERED: Losartan TAB* 25 MG PO ONE (21:29)
--- NOTE | 2018-08-14 21:56 | ED ---
Progress - Progress Note Progress Note: Pt is a signout from Dr. Rubin pending CBC, second Troponin, Potassium levels, and CXR. Re-Evaluation - Re-Evaluation First Eval Re-Evaluation Time: 21:30 Change: Improved Course/Dx - Course Course Of Treatment: Pt is a signout from Dr. Rubin pending CBC, second Troponin, Potassium levels, and CXR. Pts hematology shows RBC of 5.07. Her second Troponin is 0.03. Her Potassium level is 4.4. She is stable and will be discharged with a dx of chest pain, and she is agreeable with this plan. - Diagnoses Provider Diagnoses: Chest pain, Hypertension, poor control Discharge - Sign-Out/Discharge Documenting (check all that apply): Patient Departure Patient Received Moderate/Deep Sedation with Procedure: No - Discharge Plan Condition: Good Disposition: HOME Patient Education Materials: Chest Pain (ED) Referrals: Edgardo Ahn MD [Primary Care Provider] - 3 Days - Billing Disposition and Condition Condition: GOOD Disposition: Home - Attestation Statements Document Initiated by Scribe: Yes Documenting Scribe: Abiola Sanchez Provider For Whom Chel is Documenting (Include Credential): Alejandro Cody MD. Scribe Attestation: Abiola Mcdonald, luis antonioed for Alejandro Cody MD. on 08/18/18 at 0430. Scribe Documentation Reviewed: Yes Provider Attestation: The documentation as recorded by the scribeAbiola accurately reflects the service I personally performed and the decisions made by , Alejandro Cody MD. Status of Scribe Document: Viewed
[2018-08-14 22:38] LABS: ABS Basophils 0.1 10^3/ul (0-0.2); ABS Eosinophils 0.3 10^3/ul (0-0.6); ABS Lymphocytes 2.4 10^3/ul (1.0-4.8); ABS Monocytes 0.8 10^3/ul (0-0.8); ABS Neutrophils 5.1 10^3/ul (1.5-7.7); Eosinophil % 3.4 %; Hematocrit 46 % (35-47); Hemoglobin 15.3 g/dL (12.0-16.0); Mean Corpuscular HGB Conc 33 g/dL (31-36); Mean Corpuscular Hemoglobin 30 pg (27-31); Mean Corpuscular Volume 91 fL (80-97); Nucleated Red Blood Cells % 0.3; Platelet Count 165 10^3/uL (150-450); Red Blood Count 5.03 10^6 /uL (3.70-4.87); Red Cell Distribution Width 13 % (10.5-15); White Blood Count 8.7 10^3/uL (3.5-10.8)
[2018-08-14 22:57] LABS: Troponin I 0.03 ng/mL (<0.04)
[2018-08-14 23:59] LABS: Potassium Redraw 4.4 mmol/L (3.5-5.0)
[2018-08-15 00:34] VITALS: BP 202/66
== END 2018-08-15 00:30 | disposition home or self-care (01) ==
LOC: ED 17:18
DX: R07.9 Chest pain, unspecified (principal); I12.9 Hypertensive chronic kidney disease with stage 1 through stage 4 chronic kidney disease, or unspecified chronic kidney disease; I25.10 Atherosclerotic heart disease of native coronary artery without angina pectoris; I25.2 Old myocardial infarction; Z95.5 Presence of coronary angioplasty implant and graft; E11.22 Type 2 diabetes mellitus with diabetic chronic kidney disease; N18.3 Chronic kidney disease, stage 3 (moderate); Z90.5 Acquired absence of kidney; Z88.6 Allergy status to analgesic agent; Z87.891 Personal history of nicotine dependence
CPT/HCPCS: 36415; 71045; 80053; 84484; 85025; 85610; 93005; 99284; A9270-GY

== ENCOUNTER 2019-05-10 01:53 | Observation (INO) | payer MEDICARE ==
[2019-05-10 02:29] LABS: ABS Basophils 0.1 10^3/ul (0-0.2); ABS Eosinophils 0.2 10^3/ul (0-0.6); ABS Lymphocytes 1.5 10^3/ul (1.0-4.8); ABS Monocytes 0.9 10^3/ul (0-0.8); ABS Neutrophils 5.2 10^3/ul (1.5-7.7); Eosinophil % 2.5 %; Hematocrit 39 % (35-47); Hemoglobin 13.2 g/dL (12.0-16.0); Lymphocyte % 18.9 %; Mean Corpuscular HGB Conc 34 g/dL (31-36); Mean Corpuscular Hemoglobin 30 pg (27-31); Mean Corpuscular Volume 88 fL (80-97); Mean Platelet Volume 10.6 fL (7.4-10.4); Nucleated Red Blood Cells % 0.1; Platelet Count 141 10^3/uL (150-450); Red Blood Count 4.46 10^6 /uL (3.70-4.87); Red Cell Distribution Width 14 % (10-15); White Blood Count 7.8 10^3/uL (3.5-10.8)
[2019-05-10 02:40] LABS: Albumin 3.9 g/dL (3.2-5.2); Anion Gap 7 mmol/L (2-11); CO2 Carbon Dioxide 26 mmol/L (22-32); Calcium 8.5 mg/dL (8.6-10.3); Chloride 105 mmol/L (101-111); Potassium 3.9 mmol/L (3.5-5.0); Sodium 138 mmol/L (135-145)
--- OUTSIDE RECORDS SUMMARY | 2019-05-10 02:43 | XMS REPORT | Continuity of Care Document ---
:1935 External Reference #:[id number] Author Name Tammy Bingham N.P. 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 Problems Active Problems Provider Date Chronic ischemic heart disease Octavio Benjamin M.D., [facility], [facility] Onset: 2014 Essential hypertension Octavio Benjamin M.D., [facility] Onset: 08/08/2014 Hyperlipidemia Octavio Benjamin M.D., [facility] Onset: 08/08/2014 Atherosclerotic heart disease of Octavio Benjamin M.D., [facility] Onset: 2016 [place] coronary artery without angina pectoris Chronic ischemic heart disease, Octavio Benjamin M.D., [facility] Onset: 2014 unspecified Right bundle branch block Octavio Benjamin M.D., [facility] Onset: 03/05/2015 Aortic valve disorder Octavio Benjamin M.D., [facility] Onset: 03/05/2015 Social History Type Date Description Comments Sex Unknown Tobacco Use End: 03/23/07 1pk daily for off and on 25 yrs ETOH Use Denies alcohol use Tobacco Use Start: Unknown End: Patient is a former quit in 2008, Unknown smoker smoked since late 1PPD Recreational Drug Use Denies Drug Use Smoking Status Reviewed: 04/06/19 Patient is a former quit in 2008, smoker smoked since late 1PPD Exercise Type/Frequency Walks daily Allergies, Adverse Reactions, Alerts Active Allergies Reaction Severity Comments Date Codeine Phosphate difficulty breathing 11/08/2008 Levaquin heart racing 11/08/2008 Medications Active Medications SIG Qnty Indications Ordering Date Provider Rosuvastatin Calcium 1 by mouth every Unknown 12/21/2018 40mg day Tablets Glipizide take 1 tablets Unknown 12/21/2018 10mg Tablets by mouth every morning before breakfast and 1 tablets by mouth in the evening before dinner Nystatin as needed per pt Unknown 08/21/2017 [id number]/GM Powder Prochlorperazine Maleate 1-2 tablets by Unknown 05/28/2016 5mg mouth 4 times a Tablets day needed Centrum Silver 1 po qd Unknown Tablets Nitrostat place 1 tablet 25tabs Octavio Benjamin, 0.4mg Tablets Sub under the tongue M.DMaximo, FACC, if needed every FSCAI 5 minutes for vitaliy... Metoprolol Succinate ER take 1 tablet Unknown 25mg once daily Tablets ER 24HR Aspirin 1 by mouth every Unknown 81mg Tablets day Meclizine HCL 1 tab every 8 60tabs Unknown 12.5mg Tablets hours as needed for dizziness Medications Administered in Office Medication SIG Qnty Indications Ordering Provider Date Depomedrol 80MG Kwasi Ballard M.D. 08/04/2012 Injection Immunizations Description No Information Available Vital Signs Date Vital Result Comment 04/06/2019 10:17am Height 62 inches 5'2" Weight 195.00 lb home weight this morning Heart Rate 76 /min right radial BP Systolic 136 mmHg ule LG cuff BP Diastolic 76 mmHg ule LG cuff BP Systolic Sitting 126 mmHg ule LG cuff BP Diastolic Sitting 64 mmHg ule LG cuff BMI (Body Mass Index) 35.7 kg/m2 Ejection Fraction 60-65% echo 01/06/19 02/03/2019 9:44am Height 62 inches 5'2" Weight 194.38 lb with Heart Rate 76 /min BP Systolic Sitting 132 mmHg Rue (large cuff) BP Diastolic Sitting 72 mmHg Rue (large cuff) BP Systolic Standing 110 mmHg BP Diastolic Standing 60 mmHg BMI (Body Mass Index) 35.5 kg/m2 Ejection Fraction 60-65% Echocardiogram 01/06/2019 Results Description No Information Available Procedures Date Code Description Status 01/10/2019 80008 Holter Monitor Review (24 hr)dr review & interp only Completed 01/06/2019 13679 ECHO Transthoracic, Real-Time 2D With Doppler And Color Completed Flow 01/06/2019 28440 ECHO Transthoracic, Real-Time 2D With Doppler And Color Completed Flow 01/05/2019 02631 ECG Monitor/Recording W/Visual Superimposition Scanning Completed 01/05/2019 73700 ECG Monitor/Recording W/Visual Superimposition Scanning Completed 12/22/2018 33347 EKG Tracing & Interpretation Completed 11/15/2018 47036 Treadmill Interp/Report Only Completed 11/15/2018 12651 Stress Test Supervsn W/Out I/R Completed Medical Devices Description No Information Available Encounters Type Date Location Provider Dx Diagnosis Office Visit 02/03/2019 [facility] Tammy Bingham, I35.0 Nonrheumatic aortic 10:00a N.P. (valve) stenosis R42 Dizziness and giddiness I10 Essential (primary) hypertension Office Visit 12/22/2018 10:00a [place] [facility]ito Rueda E11.9 Type 2 diabetes Cardiology Nicolasa Stein mellitus without complications I10 Essential (primary) hypertension R07.89 Other chest pain I35.0 Nonrheumatic aortic (valve) stenosis R42 Dizziness and giddiness Office Visit 11/16/2018 [facility] Markos Novoa R07.9 Chest pain, 9:53a Assoclandry M.D.,FACP unspecified Hospitalists I25.10 Athscl heart disease of [place] coronary artery w/o ang pctrs E11.9 Type 2 diabetes mellitus without complications I10 Essential (primary) hypertension E78.5 Hyperlipidemia, unspecified N18.3 Chronic kidney disease, stage 3 (moderate) Office Visit 11/15/2018 9:53a [facility] Alissa Choi, R07.9 Chest pain, Assoc,landry CHARLES unspecified Hospitalists I10 Essential (primary) hypertension E11.9 Type 2 diabetes mellitus without complications E78.5 Hyperlipidemia, unspecified N18.3 Chronic kidney disease, stage 3 (moderate) Assessments Date Code Description Provider 04/06/2019 I35.0 Nonrheumatic aortic (valve) stenosis Tammy Bingham, N.P. 04/06/2019 R42 Dizziness and giddiness Tammy Bingham, N.P. 04/06/2019 I10 Essential (primary) hypertension Tammy Bingham, N.P. 04/06/2019 E11.9 Type 2 diabetes mellitus without Tammy Bingham, N.P. complications 04/06/2019 I25.10 Atherosclerotic heart disease of Tammy Bingham, N.P. [place] coronary artery without angina pectoris 02/03/2019 I35.0 Nonrheumatic aortic (valve) stenosis Tammy Bingham, N.P. 02/03/2019 R42 Dizziness and giddiness Tammyfatimah Bingham, N.P. 02/03/2019 I10 Essential (primary) hypertension Tammy HeMaximo Bingham, N.P. 01/10/2019 R42 Dizziness Lalito Stein M.D. 01/06/2019 I35.0 Nonrheumatic aortic (valve) stenosis Lalito Stein M.D. 01/06/2019 I35.0 Nonrheumatic aortic (valve) stenosis [place] [facility] Schedule 01/05/2019 R42 Dizziness and giddiness Lalito Stein M.D. 01/05/2019 R42 Dizziness Nurse Visit cc 12/22/2018 E11.9 Type 2 diabetes mellitus without Lalito Stein M.D. complications 12/22/2018 I10 Essential (primary) hypertension Lalito Stein M.D. 12/22/2018 R07.89 Chest discomfort Lalito Stein M.D. 12/22/2018 I35.0 Aortic valve stenosis Lalito Stein M.D. 12/22/2018 R42 Dizziness Lalito Stein M.D. 11/16/2018 R07.9 Chest pain, unspecified Markos John M.D.,FACP 11/16/2018 I25.10 Atherosclerotic heart disease of Markos John M.D., FACP [place] coronary artery without angina pectoris 11/16/2018 E11.9 Type 2 diabetes mellitus without Markos John M.D., FACP complications 11/16/2018 I10 Essential (primary) hypertension Markos John M.D.,FACP 11/16/2018 E78.5 Hyperlipidemia, unspecified Markos John M.D.,FACP 11/16/2018 N18.3 Chronic kidney disease, stage 3 Markos John M.D., FACP (moderate) 11/15/2018 R07.9 Chest pain, unspecified Alissa Choi MD 11/15/2018 R07.9 Chest pain, unspecified Octavio Benjamin M.D., [facility] 11/15/2018 I10 Essential (primary) hypertension Alissa Choi MD 11/15/2018 E11.9 Type 2 diabetes mellitus without Alissa Choi MD complications 11/15/2018 E78.5 Hyperlipidemia, unspecified Alissa Choi MD 11/15/2018 N18.3 Chronic kidney disease, stage 3 Alissa Choi MD (moderate) Plan of Treatment Future Appointment(s):08/30/2019 9:20 am - Lalito Stein M.D. at [facility]04/06/2019 - Tammy Bingham NMaximoPMaximoI35.0 Nonrheumatic aortic (valve) qozroigtS63 Dizziness and [id number] Essential (primary) hypertensionFollow up :[facility] 08/2019Recommendations:BP well controlled off suyvcwuobpQ04.9 Type 2 diabetes mellitus without yekpcgyudmatwQ64.10 Atherosclerotic heart disease of [place] coronary artery without angina pectoris Functional Status Description No Information Available Mental Status Description No Information Available Referrals Description No Information Available
[2019-05-10 02:46] LABS: ALT 17 U/L (7-52); AST 27 U/L (13-39); Albumin/Globulin Ratio 1.5 (1-3); Alkaline Phosphatase 109 U/L (34-104); BUN/Creatinine Ratio 13.9 (8-20); Blood Urea Nitrogen 16 mg/dL (6-24); EGFR African American 54.5 (>60); EGFR Non-African American 45.1 (>60); Globulin 2.6 g/dL (2-4); Glucose 227 mg/dL (70-100); Total Protein 6.5 g/dL (6.4-8.9)
[2019-05-10 03:11] LABS: Troponin I 0.05 ng/mL (<0.03)
--- NOTE | 2019-05-10 03:24 | ED ---
HPI Chest Pain - HPI Summary HPI Summary: This pt is an 83 Y/O F presenting to [facility] with a CC of CP that occurred at 0000 this date and has been constant since with a severity of 8/10 in severity. She states that the pain began in her L arm and radiated up to her L neck and into her back. She states that the pain reminds her of her previous heart attack. She denies any fevers, chills, headaches, SOB, and N/V. She has a PMHx of a previous heart attack, CAD, HTN, and hypercholesterolemia. She has no aggravating or alleviating factors. Given aspirin Pt is unable to remember when her last stress test was but per [facility] in January 2019 and was normal. Follows w Dr. Stein. - History of Current Complaint Chief Complaint: EDChestPainROMI Time Seen by Provider: 05/10/19 03:08 Hx Obtained From: Patient Onset/Duration: Started Hours Ago Time of Onset: 00:00 Timing: Constant Initial Severity: Severe Current Severity: Severe Pain Intensity: 8 Pain Scale Used: 0-10 Numeric Chest Pain Location: Left Anterior Chest Pain Radiates: Yes Chest Pain Radiates To:: Back Aggravating Factor(s): Nothing Alleviating Factor(s): Nothing Associated Signs and Symptoms: Positive: Chest Pain, Back Pain. Negative: Shortness of Breath, Fever, Chills, Nausea, Cough, Vomiting - Additional Pertinent History Primary Care Physician: [id number] - Allergy/Home Medications Allergies/Adverse Reactions: Allergies Allergy/AdvReac Type Severity Reaction Status Date / Time codeine Allergy Nausea And Verified 05/10/19 02:14 Vomiting levofloxacin [From Levaquin] Allergy Tachycardia Verified 05/10/19 02:14 PMH/Surg Hx/FS Hx/Imm Hx Previously Healthy: Yes Endocrine/Hematology History: Reports: Hx Blood Transfusions, Hx Diabetes - type II Denies: Hx Anticoagulant Therapy Cardiovascular History: Reports: Hx Angina, Hx Cardiac Arrest, Hx Coronary Artery Disease - Stent, Hx Hypercholesterolemia, Hx Hypertension - ON MEDS, Hx Myocardial Infarction - 2005 with one stent Denies: Hx Deep Vein Thrombosis, Hx Embolism, Hx Pacemaker/ICD, Hx Rheumatic Fever, Hx Valvular Heart Disease Respiratory History: Denies: Hx Asthma, Hx Chronic Obstructive Pulmonary Disease (COPD) GI History: Reports: Hx Ileostomy - reversed. pt does not know why she had this Denies: Other GI Disorders History: Reports: Hx Acute Renal Failure - kidney removed in 1979, Hx Chronic Renal Failure, Hx Renal Disease - CKD stage 3 Musculoskeletal History: Reports: Hx Arthritis - RIGHT LEG, BACK, Hx Back Problems, Hx Osteoporosis Sensory History: Reports: Hx Cataracts, Hx Contacts or Glasses Denies: Hx Eye Injury, Hx Glaucoma, Hx Legally Blind, Hx Vision Problem, Hx Deafness, Hx Hearing Aid, Hx Hearing Problem Opthamlomology History: Reports: Hx Cataracts, Hx Contacts or Glasses Denies: Hx Eye Injury, Hx Glaucoma, Hx Legally Blind, Hx Vision Problem Neurological History: Denies: Hx Migraine, Hx Seizures, Hx Spinal Cord Injury, Hx Transient Ischemic Attacks (TIA) - Surgical History Surgery Procedure, Year, and Place: 5 CYSTS SURGERY AN INFANT ON NECK, [facility] [place] APPENDECTOMY, AGE 5, [facility]. TONSILECTOMY, AGE 6-7, [facility]. C SECTION 1966, [facility]. RIGHT NEPHRECTOMY, 1979, [facility]. COLOSTOMY, 2008, [facility]. REVERSAL COLOSTOMY, 2008, [facility]. HERNIA 2009, [facility]. CARDIAC STENT "13 surgeries" Hx Anesthesia Reactions: No - Immunization History Date of Tetanus Vaccine: utd Date of Influenza Vaccine: 2018 Immunizations Up to Date: Yes Infectious Disease History: No Infectious Disease History: Denies: Hx Clostridium Difficile, Hx Hepatitis, Hx of Known/Suspected MRSA, Hx Shingles, Hx Tuberculosis, Hx Known/Suspected VRE, Hx Known/Suspected VRSA, Traveled Outside the [place] in Last 30 Days - Family History Known Family History: Positive: Cardiac Disease, Diabetes, Other - Positive cancer Family History: No FHx of Malignant Hyperthermia. No FHx of Anesthesia Reaction - Social History Occupation: Retired Lives: Alone Alcohol Use: None Hx Substance Use: No Substance Use Type: Reports: None Hx Tobacco Use: Yes Smoking Status (MU): Former Smoker Type: Cigarettes Amount Used/How Often: 1 pack per day Length of Time of Smoking/Using Tobacco: approx 40 years Have You Smoked in the Last Year: No Review of Systems Negative: Fever, Chills Positive: Chest Pain Negative: Shortness Of Breath Negative: Vomiting, Nausea Positive: Other - back pain Negative: Headache All Other Systems Reviewed And Are Negative: Yes Physical Exam - Summary Physical Exam Summary: Constitutional: Well-developed, Well-nourished, Alert. (-) Distressed Skin: Warm, Dry HENT: Normocephalic; Atraumatic Eyes: Conjunctiva normal Neck: Musculoskeletal ROM normal neck. (-) JVD, (-) Stridor, (-) Nuchal rigidity Cardio: Rhythm regular, rate normal, Heart sounds normal; Intact distal pulses; Radial pulses are 2+ and symmetric. (-) Murmur Pulmonary/Chest wall: Effort normal. (-) Respiratory distress, (-) Wheezes, (-) Rales Abd: Soft, (-) tenderness, (-) Distension, (-) Guarding, (-) Rebound Musculoskeletal: (-) Edema Lymph: (-) Cervical adenopathy Neuro: Alert, Oriented x3 Psych: Mood and affect Normal Triage Information Reviewed: Yes Vital Signs On Initial Exam: Initial Vitals Temp Pulse Resp BP Pulse Ox 98.2 F 77 18 196/76 93 05/10/19 02:01 05/10/19 02:01 05/10/19 02:01 05/10/19 02:01 05/10/19 02:01 Vital Signs Reviewed: Yes Procedures - Sedation Patient Received Moderate/Deep Sedation with Procedure: No Diagnostics - Vital Signs Vital Signs Temp Pulse Resp BP Pulse Ox 05/10/19 03:16 98.2 F 64 20 182/88 95 05/10/19 03:01 66 18 95 05/10/19 02:39 66 17 182/88 95 05/10/19 02:09 73 21 179/60 96 05/10/19 02:08 71 24 97 05/10/19 02:01 98.2 F 77 18 196/76 93 - Laboratory Lab Results: Lab Results 05/10/19 05/10/19 05/10/19 Range/Units 02:22 02:22 02:22 WBC 7.8 (3.5-10.8) 10^3/uL RBC 4.46 (3.70-4.87) 10^6 /uL Hgb 13.2 (12.0-16.0) g/dL Hct 39 (35-47) % MCV 88 (80-97) fL MCH 30 (27-31) pg MCHC 34 (31-36) g/dL RDW 14 (10-15) % Plt Count 141 L (150-450) 10^3/uL MPV 10.6 H (7.4-10.4) fL Neut % (Auto) 66.1 % Lymph % (Auto) 18.9 % [place] % (Auto) 11.4 % Eos % (Auto) 2.5 % Baso % (Auto) 1.1 % Absolute Neuts (auto) 5.2 (1.5-7.7) 10^3/ul Absolute Lymphs (auto) 1.5 (1.0-4.8) 10^3/ul Absolute Monos (auto) 0.9 H (0-0.8) 10^3/ul Absolute Eos (auto) 0.2 (0-0.6) 10^3/ul Absolute Basos (auto) 0.1 (0-0.2) 10^3/ul Absolute Nucleated RBC 0.0 10^3/ul Nucleated RBC % 0.1 Sodium 138 (135-145) mmol/L Potassium 3.9 (3.5-5.0) mmol/L Chloride 105 (101-111) mmol/L Carbon Dioxide 26 (22-32) mmol/L Anion Gap 7 (2-11) mmol/L BUN 16 (6-24) mg/dL Creatinine 1.15 H (0.51-0.95) mg/dL Est GFR ( Amer) 54.5 (>60) Est GFR (Non-Af Amer) 45.1 (>60) BUN/Creatinine Ratio 13.9 (8-20) Glucose 227 H (70-100) mg/dL Lactic Acid 1.6 (0.5-2.0) mmol/L Calcium 8.5 L (8.6-10.3) mg/dL Total Bilirubin 0.40 (0.2-1.0) mg/dL AST 27 (13-39) U/L ALT 17 (7-52) U/L Alkaline Phosphatase 109 H (34-104) U/L Troponin I 0.05 H* (<0.03) ng/mL B-Natriuretic Peptide (<=100) pg/mL Total Protein 6.5 (6.4-8.9) g/dL Albumin 3.9 (3.2-5.2) g/dL Globulin 2.6 (2-4) g/dL Albumin/Globulin Ratio 1.5 (1-3) 18/ Range/Units 02:22 WBC (3.5-10.8) 10^3/uL RBC (3.70-4.87) 10^6 /uL Hgb (12.0-16.0) g/dL Hct (35-47) % MCV (80-97) fL MCH (27-31) pg MCHC (31-36) g/dL RDW (10-15) % Plt Count (150-450) 10^3/uL MPV (7.4-10.4) fL Neut % (Auto) % Lymph % (Auto) % [place] % (Auto) % Eos % (Auto) % Baso % (Auto) % Absolute Neuts (auto) (1.5-7.7) 10^3/ul Absolute Lymphs (auto) (1.0-4.8) 10^3/ul Absolute Monos (auto) (0-0.8) 10^3/ul Absolute Eos (auto) (0-0.6) 10^3/ul Absolute Basos (auto) (0-0.2) 10^3/ul Absolute Nucleated RBC 10^3/ul Nucleated RBC % Sodium (135-145) mmol/L Potassium (3.5-5.0) mmol/L Chloride (101-111) mmol/L Carbon Dioxide (22-32) mmol/L Anion Gap (2-11) mmol/L BUN (6-24) mg/dL Creatinine (0.51-0.95) mg/dL Est GFR ( Amer) (>60) Est GFR (Non-Af Amer) (>60) BUN/Creatinine Ratio (8-20) Glucose (70-100) mg/dL Lactic Acid (0.5-2.0) mmol/L Calcium (8.6-10.3) mg/dL Total Bilirubin (0.2-1.0) mg/dL AST (13-39) U/L ALT (7-52) U/L Alkaline Phosphatase (34-104) U/L Troponin I (<0.03) ng/mL B-Natriuretic Peptide 94 (<=100) pg/mL Total Protein (6.4-8.9) g/dL Albumin (3.2-5.2) g/dL Globulin (2-4) g/dL Albumin/Globulin Ratio (1-3) Result Diagrams: 05/10/19 02:22 05/10/19 02:22 Lab Statement: Any lab studies that have been ordered have been reviewed, and results considered in the medical decision making process. - Radiology CXR Radiology Interpretation Completed By: ED Physician Summary of Radiographic Findings: No acute processes. Pending offical review. - EKG 0210 Cardiac Rate: NL - 71 BPM EKG Rhythm: Sinus Rhythm ST Segment: Normal Ectopy: None Summary of EKG Findings: An EKG at 0210 reveals normal sinus rhythm at 71 BPM, RBBB and T wave inversions in leads V3. No STEMI. No acute changes. Interpreted by Dr. Pryor at 0330 05/10/2019. Re-Evaluation - Re-Evaluation First Eval Re-Evaluation Time: 03:29 Change: Unchanged Comment: By looking through the pt's medical records her most recent stress test was in October and was normal. Second Eval Re-Evaluation Time: 03:39 Change: Unchanged Comment: Patient agreeable to admission Third Eval Re-Evaluation Time: 04:24 Change: Unchanged Comment: Pt's daughter was contacted upon request, updated on plan for admission Chest Pain Course/Dx - Course Course Of Treatment: 83 y/o F w hx HTN and previous VT p/w L CP. - VS: hypertensive. - PE well appearing, CXR neg, EKG unchanged. Labs notable for troponin 0.05. -Chest Pain DDX: The patient is well appearing, with stable vitals. Given the patient's clinical presentation, highest on differential is ACS. S/p aspirin w EMS. Given nitroglycerin here. Heart score 6: moderate risk. Admit. Although less likely, differential also includes the following: - -Pneumothorax: Equal breath sounds, story inconsistent since gradual onset of symptoms. CXR shows no evidence of pneumothorax. Unlikely. --Cardiac tamponade : The history and physical are not concerning for tamponade. No Pulsus Paradoxus , no tachypnea. Unlikely. --Mediastinitis or esophageal rupture: The history is not consistent, as the patient has had no recent history of significant wretching, instrumentation, or mediastinal surgeries. Unlikely. --Aortic dissection: The patient does not describe the classical tearing chest pain radiating into the back, and the CXR does not show mediastinal widening or other signs of aortic dissection. Unlikely. --PE: Vitals wnl (not hypoxic, tachycardic or tachypneic). - Diagnoses Provider Diagnoses: Chest pain, Elevated troponin - Provider Notifications Discussed Care Of Patient With: Alin Hernandez Time Discussed With Above Provider: 04:24 Instructed by Provider To: Admit As Inpatient Admit/Transition Orders Completed By ED Provider: Yes Discharge ED - Sign-Out/Discharge Documenting (check all that apply): Patient Departure - admitted - Discharge Plan Condition: Stable Disposition: ADMITTED TO [facility] Referrals: Edgardo Ahn MD [Primary Care Provider] - - Billing Disposition and Condition Condition: STABLE Disposition: Admitted to [facility] - Attestation Statements Document Initiated by Alekibhema: Yes Documenting Scribe: Julio Barboza Provider For Whom Chel is Documenting (Include Credential): Aroldo Pryor MD Scribe Attestation: Julio Mcdonald, scribed for Aroldo Pryor MD on 05/10/19 at 0452. Scribe Documentation Reviewed: Yes Provider Attestation: The documentation as recorded by the Julio babcock accurately reflects the service I personally performed and the decisions made by Aroldo jordan MD Status of Scribe Document: Viewed
[2019-05-10] MEDS ORDERED: Aspirin 81 mg CHEW TAB* 81 MG TAB.CHEW PO ONE (04:02)
[2019-05-10] MEDS ORDERED: Nitroglycerin TAB 0.4 MG* 0.4 MG TAB SL ONE (04:02)
[2019-05-10] MEDS ORDERED: Dextrose 50% Syringe 50 ML* 25 GM/50 ML SYRINGE IV PUSH PRN (05:36)
[2019-05-10 05:42] LABS: Troponin I 0.05 ng/mL (<0.03)
[2019-05-10] MEDS ORDERED: Heparin DRIP 25,000 UNITS(*) 25,000 UNITS/500 ML BAG IV SCH (05:45)
[2019-05-10] MEDS ORDERED: Heparin VIAL(*) 5000 UNITS/ML VIAL (FIVE THOUSAND) IV SCH (06:00)
[2019-05-10] MEDS ORDERED: Nitro 2% OINT* (Nitroglycerin) 1 INCH/PAK PAK TOPICAL SCH (06:00)
[2019-05-10] MEDS ORDERED: Metoprolol Tartrate TAB* 25 MG PO SCH (06:00)
[2019-05-10 06:27] LABS: Cholesterol 99 mg/dL; LDL Cholesterol 13 mg/dL; Triglycerides 258 mg/dL
[2019-05-10] MEDS ORDERED: Insulin LISPRO* 1 UNITS UNIT SUBCUT SCH (07:30)
[2019-05-10] MEDS ORDERED: Aspirin 81 mg CHEW TAB* 81 MG TAB.CHEW PO SCH (09:00)
--- NOTE | 2019-05-10 09:01 | HP ---
HISTORY AND PHYSICAL: DATE OF ADMISSION: 05/10/19 ADMITTING PROVIDER: Alin Hernandez MD PRIMARY CARE PROVIDER: Dr. Edgardo Ahn. OUTPATIENT PARTNER MANAGEMENT CONSULTANT: Dr. Stein. CHIEF COMPLAINT: Pain in the left arm, neck, and between the 2 scapulas on the back. HISTORY OF PRESENT ILLNESS: Peyton Bonner is an 83-year-old female with past medical history of coronary artery disease/myocardial infarction in 2014, status post stent to the first OM with known residual of 70% mid LAD stenosis; non-insulin- dependent diabetes mellitus; hypertension; hyperlipidemia; chronic kidney disease stage 3 with solitary kidney. She was in her usual state of health, in bed, getting ready to sleep when she developed discomfort in her left arm that then radiated to her neck. It then started in between her 2 scapulas in the back. It was never in the front of her chest. These were similar sensations to when she had her STEMI. Initially, pain was about as 8 to 9/10. She got 3 aspirin with retail support manager and then in the [facility] got nitroglycerin 0.4 mg at 0400 and this improved her pain to a 7/10. Her EKG showed some T-wave flattening in V1 through V2, no ST elevations or depressions. Additional troponin was 0.05 and she was referred to hospitalist service for ACS rule out. She denies any shortness of breath or diaphoresis, fevers, chills, nausea or vomiting, or abdominal pain. She did have cold like symptoms approximately 2 weeks ago when she did have some shortness of breath and nausea. Initial blood pressure was 196/76. PAST MEDICAL HISTORY: 1. Coronary artery disease/myocardial infarction in 2014, status post first OM stent and residual 70% mid LAD stenosis. 2. Mau-rxcixfr-tykygnmls diabetes mellitus, type 2 with last hemoglobin A1c of 8.1 on 11/15/18. 3. Hypertension. 4. Hyperlipidemia. 5. Chronic kidney disease stage 3 with solitary kidney. MEDICATIONS: 1. Glipizide 10 mg twice a day. 2. Metoprolol succinate 25 mg p.o. daily. 3. Rosuvastatin 40 mg p.o. daily. 4. Aspirin 81 mg daily. 5. Tylenol 650 mg p.o. q.6 hours p.r.n. ALLERGIES: CODEINE, nausea and vomiting; LEVOFLOXACIN, tachycardia. SOCIAL HISTORY: The patient is a former smoker, quit 15 years ago, smoked 1 pack per day for approximately 30 to 40 years. Denies any alcohol or drug use. 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 Her daughter , Marisa Babin, is her medical surrogate. She can decide what her code status will be. FAMILY HISTORY: Mother of throat cancer at age 75, she had myocardial infarction. Father from COPD at age 61. She has 7 total brothers and sisters, many have passed, 1 sister from uterine cancer, another from heart disease, another unknown, 1 brother was murdered. She has 2 other living brothers, 78 and 82 and the youngest sister is in the alf. REVIEW OF SYSTEMS: A complete 14-point review of systems is negative except as per HPI. PHYSICAL EXAMINATION GENERAL APPEARANCE: No acute distress. VITAL SIGNS: Temperature 98.2, pulse rate 77, respiratory rate 18, satting 92% on room air, blood pressure 196/76. HEENT: Normocephalic, atraumatic. Pupils equal, round, reactive to light. Extraocular motions are intact. No scleral icterus. LUNGS: Clear to auscultation bilaterally with no wheezing, rales, or rhonchi. CARDIOVASCULAR: Regular rate and rhythm. There is an early systolic ejection murmur in the right upper sternal border. ABDOMEN: Soft, nontender, nondistended. EXTREMITIES: Warm, well perfused. No peripheral edema. SKIN: No lesions or rashes. NEURO: Cranial nerves II through XII intact. LABORATORY DATA: Labs: White count 7.8, hemoglobin 13.2, hematocrit 39, platelets 151. Sodium 138, potassium 3.9, chloride 105, carbon dioxide 26, BUN 16, creatinine 1.15, glucose 227. Lactic acid 1.6. Total bili was 0.4, AST 27 , ALT 17, alk phos 109. Troponin 0.05. BNP 94. Albumin 3.9. IMAGING: Chest x-ray, official read pending, but per my read, no acute cardiopulmonary process. EKG: Normal sinus rhythm, flat or inverted T waves in V1 and V2, poor R wave progression, right bundle-branch block with prolonged QRS 129 milliseconds, normal axis, T-wave inversion in V3 as well, largely unchanged from 11/15/18 EKG. ASSESSMENT AND PLAN: Peyton Bonner is an 83-year-old female with history of coronary artery disease with known residual 70% LAD stenosis, hypertension, non- insulin-dependent diabetes mellitus, hyperlipidemia, chronic kidney disease stage 3 with solitary kidney presenting with concerning story given her symptoms somewhat to her prior STEMI with midscapular back pain with radiation to her arm and neck. No substernal pressure. She is status post 1 nitroglycerin here with some improvement in her pain but still rates it as 7/ 10. I am going to put her on beta yuridia, give another statin, and Lipitor 80 mg daily starting now. Continue aspirin 81 mg daily. Continue telemetry. Trend troponins every 3 hours. Again, repeat EKG. Actually, I am going to start a heparin drip as well. Get the echocardiogram. Consider cardiology consult and stress test depending on clinical course. Monitor blood pressure. She is falling down to 130s/70s range. Her DVT prophylaxis, she is already going to be on a heparin drip. She is still deciding on her code status. Medical surrogate is her daughter, Marisa Babin. She can be n.p.o. except for sips for meds. For her xqd-vnulmas-lmioasvhs diabetes mellitus, she can put on sliding scale insulin, hold her glipizide. [id number]/[facility] #: [id number] CASSI
--- NOTE | 2019-05-10 09:35 | PN ---
Subjective Date of Service: 05/10/19 Interval History: That that she has a headache she believes is from the nitro. Otherwise denies any chest or radiating pain, shortness of breath, chest tightness/pressure. Denies lightheadedness/dizziness, palpitations, abdominal pain, nausea, vomiting , issues moving bowel or bladder. Family History: Unchanged from Admission Social History: Unchanged from Admission Past Medical History: Unchanged from Admission Objective Active Medications: Aspirin (Aspirin 81 Mg Chew Tab*) 81 mg PO DAILY [facility] Last Admin: 05/10/19 09:21 Dose: 81 mg Atorvastatin Calcium (Lipitor*) 80 mg PO 1700 [facility] Dextrose (D50w Syringe 50 Ml*) 12.5 gm IV PUSH .FOR FS < 60 - SS PRN PRN Reason: FS < 60 Heparin Sodium (Porcine) (Heparin Vial(*)) 0 units IV .PER PROTOCOL [facility] Last Admin: 05/10/19 08:39 Dose: 3,800 units Heparin Sodium/Dextrose (Heparin Drip 25,000 Units(*)) 25,000 units in 500 mls @ 0 mls/hr IV PER RATE [facility]; Protocol Last Admin: 05/10/19 08:39 Dose: 15 mls/hr Insulin Human Lispro (Humalog*) 0 units SUBCUT ACHS [facility]; Protocol Last Admin: 05/10/19 09:21 Dose: 2 units Metoprolol Tartrate (Lopressor Tab*) 25 mg PO Q8H [facility] Last Admin: 05/10/19 05:26 Dose: 25 mg Nitroglycerin (Nitroglycerin 2% Oint*) 1 inch TOPICAL 0600,1200 [facility]; Protocol Last Admin: 05/10/19 06:11 Dose: 1 inch Pharmacy Profile Note (Nitro Patch/Oint Remove*) 1 note TOPICAL 1800 [facility] Vital Signs - 8 hr 05/10/19 05/10/19 05/10/19 02:01 02:08 02:09 Temperature 98.2 F Pulse Rate 77 71 73 Respiratory 18 24 21 Rate Blood Pressure 196/76 179/60 (mmHg) O2 Sat by Pulse 93 97 96 Oximetry 05/10/19 05/10/19 05/10/19 02:39 03:01 03:16 Temperature 98.2 F Pulse Rate 66 66 64 Respiratory 17 18 20 Rate Blood Pressure 182/88 182/88 (mmHg) O2 Sat by Pulse 95 95 95 Oximetry 05/10/19 05/10/19 05/10/19 04:01 04:08 04:09 Temperature Pulse Rate 63 65 Respiratory 17 20 Rate Blood Pressure 149/78 149/78 (mmHg) O2 Sat by Pulse 96 95 Oximetry 05/10/19 05/10/19 05/10/19 04:11 04:59 05:19 Temperature 97.8 F Pulse Rate 74 65 64 Respiratory 19 18 Rate Blood Pressure 133/69 133/69 (mmHg) O2 Sat by Pulse 93 95 Oximetry 05/10/19 05/10/19 05:57 07:15 Temperature 97.6 F 97.7 F Pulse Rate 66 52 Respiratory 18 18 Rate Blood Pressure 159/66 151/58 (mmHg) O2 Sat by Pulse 99 96 Oximetry Oxygen Devices in Use Now: None Appearance: This is a well developed woman seen resting in bed Result Diagrams: 05/10/19 02:22 05/10/19 02:22 Additional Lab and Data: Lab Results 05/10/19 05/10/19 05/10/19 Range/Units 02:22 02:22 02:22 WBC 7.8 (3.5-10.8) 10^3/uL RBC 4.46 (3.70-4.87) 10^6 /uL Hgb 13.2 (12.0-16.0) g/dL Hct 39 (35-47) % MCV 88 (80-97) fL MCH 30 (27-31) pg MCHC 34 (31-36) g/dL RDW 14 (10-15) % Plt Count 141 L (150-450) 10^3/uL MPV 10.6 H (7.4-10.4) fL Neut % (Auto) 66.1 % Lymph % (Auto) 18.9 % [place] % (Auto) 11.4 % Eos % (Auto) 2.5 % Baso % (Auto) 1.1 % Absolute Neuts (auto) 5.2 (1.5-7.7) 10^3/ul Absolute Lymphs (auto) 1.5 (1.0-4.8) 10^3/ul Absolute Monos (auto) 0.9 H (0-0.8) 10^3/ul Absolute Eos (auto) 0.2 (0-0.6) 10^3/ul Absolute Basos (auto) 0.1 (0-0.2) 10^3/ul Absolute Nucleated RBC 0.0 10^3/ul Nucleated RBC % 0.1 Sodium 138 (135-145) mmol/L Potassium 3.9 (3.5-5.0) mmol/L Chloride 105 (101-111) mmol/L Carbon Dioxide 26 (22-32) mmol/L Anion Gap 7 (2-11) mmol/L BUN 16 (6-24) mg/dL Creatinine 1.15 H (0.51-0.95) mg/dL Est GFR ( Amer) 54.5 (>60) Est GFR (Non-Af Amer) 45.1 (>60) BUN/Creatinine Ratio 13.9 (8-20) Glucose 227 H (70-100) mg/dL Lactic Acid 1.6 (0.5-2.0) mmol/L Calcium 8.5 L (8.6-10.3) mg/dL Total Bilirubin 0.40 (0.2-1.0) mg/dL AST 27 (13-39) U/L ALT 17 (7-52) U/L Alkaline Phosphatase 109 H (34-104) U/L Troponin I 0.05 H* (<0.03) ng/mL B-Natriuretic Peptide (<=100) pg/mL Total Protein 6.5 (6.4-8.9) g/dL Albumin 3.9 (3.2-5.2) g/dL Globulin 2.6 (2-4) g/dL Albumin/Globulin Ratio 1.5 (1-3) /18/20 Range/Units 02:22 WBC (3.5-10.8) 10^3/uL RBC (3.70-4.87) 10^6 /uL Hgb (12.0-16.0) g/dL Hct (35-47) % MCV (80-97) fL MCH (27-31) pg MCHC (31-36) g/dL RDW (10-15) % Plt Count (150-450) 10^3/uL MPV (7.4-10.4) fL Neut % (Auto) % Lymph % (Auto) % [place] % (Auto) % Eos % (Auto) % Baso % (Auto) % Absolute Neuts (auto) (1.5-7.7) 10^3/ul Absolute Lymphs (auto) (1.0-4.8) 10^3/ul Absolute Monos (auto) (0-0.8) 10^3/ul Absolute Eos (auto) (0-0.6) 10^3/ul Absolute Basos (auto) (0-0.2) 10^3/ul Absolute Nucleated RBC 10^3/ul Nucleated RBC % Sodium (135-145) mmol/L Potassium (3.5-5.0) mmol/L Chloride (101-111) mmol/L Carbon Dioxide (22-32) mmol/L Anion Gap (2-11) mmol/L BUN (6-24) mg/dL Creatinine (0.51-0.95) mg/dL Est GFR ( Amer) (>60) Est GFR (Non-Af Amer) (>60) BUN/Creatinine Ratio (8-20) Glucose (70-100) mg/dL Lactic Acid (0.5-2.0) mmol/L Calcium (8.6-10.3) mg/dL Total Bilirubin (0.2-1.0) mg/dL AST (13-39) U/L ALT (7-52) U/L Alkaline Phosphatase (34-104) U/L Troponin I (<0.03) ng/mL B-Natriuretic Peptide 94 (<=100) pg/mL Total Protein (6.4-8.9) g/dL Albumin (3.2-5.2) g/dL Globulin (2-4) g/dL Albumin/Globulin Ratio (1-3) Assess/Plan/Problems-Billing Assessment:
--- NOTE | 2019-05-10 09:45 | ECHO ---
*[facility]* [place] [address] Fax #: [phone] Transthoracic Echocardiogram Patient: Peyton Bonner : 1935 Study Date: 05/10/2019 Age: 83 Gender: F HR: 62 bpm Height: 62 in /157.5 cm BSA: 1.83 m^2 Weight: 179.6 lb /81.6 kg BMI: 32.9 kg/m^2 *Drone Operator: * Liz Hill *Referring Physician: * Alin Hernandez *Reading Physician: * Aldo Ospina MD Indications: Chest Pain, unspecified. History: Coronary artery disease. PMH: Myocardial infarction. Risk factors: Hypertension. Conclusions Summary: - Left ventricle: Systolic function is normal. The estimated ejection fraction is 55-60%. Wall motion is normal; there are no regional wall motion abnormalities. - Mitral valve: There is trace to mild regurgitation. - Aortic valve: There is no evidence of stenosis. There is trace regurgitation. - Pulmonary arteries: Systolic pressure is within the normal range, estimated to be 28 mm Hg. - Compared to study of 09/14/16, there is little change. Study data: Transthoracic echocardiogram. Procedure: Transthoracic echocardiography was performed. Image quality was good. Complete 2D, spectral Doppler, and color flow Doppler. Location: Bedside. Patient status: Inpatient. Patient room number: 446-02. Rhythm: Normal sinus rhythm. Findings Left ventricle: The cavity size is normal. Wall thickness is normal. Systolic function is normal. The estimated ejection fraction is 55-60%. Wall motion is normal; there are no regional wall motion abnormalities. Left ventricular diastolic function parameters are normal. Right ventricle: The cavity size is normal. Systolic function is normal. Ventricular septum: The ventricular septum is normal. Left atrium: The atrium is normal in size. Right atrium: The atrium is normal in size. Atrial septum: No defect or patent foramen ovale is identified. Mitral valve: The valve is structurally normal. There is no evidence of stenosis. There is trace to mild regurgitation. Aortic valve: The valve is trileaflet. There is no evidence of stenosis. There is trace regurgitation. Tricuspid valve: The valve is structurally normal. There is no evidence of stenosis. There is trace regurgitation. Pulmonic valve: The valve is structurally normal. There is no evidence of stenosis. There is trace regurgitation. Aorta: The aortic root appears normal. Pericardium: There is no significant pericardial effusion. Pulmonary arteries: Systolic pressure is within the normal range, estimated to be 28 mm Hg. Systemic veins: Inferior vena cava: The vessel is normal in size. There is (>= 50%) respiratory change in the IVC dimension. Pulmonary veins: The Pulmonary veins appear normal. Measurements Left ventricle Value Ref Aortic valve Value Ref DOUGLAS, LAX 3.9 cm 3.8 - Peak v, S 1.87 m/sec ----- 5.2 VTI, S 53.8 cm ----- ESD, LAX 2.7 cm 2.2 - Mean grad, S 8.0 mm Hg ----- 3.5 Peak grad, S 14.0 mm Hg ----- FS, LAX 31 % 45 TRAVIS, VTI 1.48 cm^2 ----- PW, ED, LAX (H) 1.1 cm 0.6 - TRAVIS, Vmax 1.58 cm^2 ----- 0.9 FS 31 % Mitral valve Value Ref Mid-wall FS 13 % -------- Peak E 1.21 m/sec ----- PW, ED (H) 1.1 cm 0.6 - Peak A 1.32 m/sec ----- 0.9 Decel time 240 ms ----- PW/ID, ED 0.28 -------- Peak grad, D 5.9 mm Hg ----- E', lat christopher, TDI (L) 6.0 cm/sec >=10.0 Peak E/A ratio 0.9 ----- E/e', lat christopher, TDI 20 -------- E', med christopher, TDI (L) 5.9 cm/sec >=7.0 Pulmonic valve Value Ref E/e', med christopher, TDI 21 -------- Peak v, S 0.61 m/sec --- -- E', avg, TDI 6.0 cm/sec -------- Peak grad, S 1.0 mm Hg --- -- E/e', avg, TDI (H) 20 <=14 Tricuspid valve Value Ref LVOT Value Ref TR peak v 2.41 m/sec <=2.8 Diam, S 2.00 cm -------- Peak RV-RA grad, S 23 mm Hg ----- Area 3.1 cm^2 -------- Max TR archie 2.41 m/sec ----- Peak archie, S 0.94 m/sec -------- Mean grad, S 2 mm Hg -------- Aortic root Value Ref SV 80 ml -------- Root diam 3.0 cm <4.0 Ventricular septum Value Ref Ascending aorta Value Ref IVS, ED (H) 1.0 cm 0.6 - AAo AP diam, S 2.6 cm ----- 0.9 Decending aorta Value Ref Right ventricle Value Ref Yoly peak archie 0.74 m/sec ----- DOUGLAS, LAX 3.6 cm -------- DOUGLAS minor ax, A4C 2.6 cm 1.9 - Inferior vena cava Value Ref mid 3.5 Diam 1.6 cm ----- Left atrium Value Ref ML dim, A4C 3.6 cm -------- SI dim, A4C 5.0 cm -------- Vol/bsa, ES, 1-p 23 ml/m^2 11 - 40 A4C Right atrium Value Ref SI dim, ES 4.3 cm 3.4 - 5.3 ML dim, ES, A4C 3.2 cm 2.6 - 4.4 SI dim, ES, A4C 4.3 cm 3.4 - 5.3 Legend: (L) and (H) zach values outside specified reference range. Prepared and electronically signed by Aldo Ospina MD 05/10/2019 09:44
[2019-05-10 10:11] LABS: Troponin I 0.05 ng/mL (<0.03)
[2019-05-10] MEDS ORDERED: amLODIPine TAB* 5 MG PO SCH (11:00)
[2019-05-10 11:49] VITALS: BP 134/57
[2019-05-10] MEDS ORDERED: glipiZIDE TAB* 5 MG PO SCH (17:00)
[2019-05-10] MEDS ORDERED: Atorvastatin* 80 MG TAB PO SCH (17:00)
[2019-05-10] MEDS ORDERED: Nitro Patch/OINT Remove TOPICAL SCH (18:00)
--- NOTE | 2019-05-10 22:49 | DS ---
CC: Dr. Ahn; Dr. Stein * DISCHARGE SUMMARY: DATE OF ADMISSION: 05/10/19 DATE OF DISCHARGE: 05/10/19 PROVIDER: Bradly Huynh NP ATTENDING PHYSICIAN: Dr. Alissa Choi.* (DICTATED BY BRADLY HUYNH NP) PRIMARY CARE PHYSICIAN: Dr. Ahn. PRIMARY DIAGNOSIS: Chest pain without evidence for acute myocardial infarction. SECONDARY DIAGNOSES: 1. Diabetes type 2. 2. Hypertension. 3. Hyperlipidemia. 4. Chronic kidney disease stage 3. PROCEDURES: None. DIAGNOSTIC STUDIES: Chest x-ray showed hyperinflation consistent with COPD, but no active cardiopulmonary disease. Her transthoracic echocardiogram showed an ejection fraction of 33% to 50%. No regional wall motion abnormalities, trace mitral valve regurgitation. PERTINENT LABORATORY DATA: Platelet count 141. Troponin 0.05. Hemoglobin A1c of 8.4, creatinine 1.15, glucose is 227, calcium 8.5, alkaline phosphatase 109. B-natriuretic peptide 94. Triglycerides 258, cholesterol 99, LDL cholesterol 13, and HDL cholesterol 34.0. HISTORY OF PRESENT ILLNESS/HOSPITAL COURSE: This is an 83-year-old female with a past medical history significant for coronary artery disease and myocardial infarction in 2014, status post stent with a known residual of 70% mid LAD stenosis and diabetes type 2. On the evening of 05/09/19, she had been getting ready to go to bed. She had been in her usual state of health, but when she laid down, she developed discomfort in her left arm, but then radiated to her neck, it started between her scapula, but was never in the front of her chest. She stated that these symptoms were very similar to when she had had her previous STEMI. Initially, her pain was 9/10. When she came to the emergency room, she received 324 mg of aspirin and nitroglycerin. Her EKG was done, which showed T-wave flattening in V1 and V2, but with no ST elevations or depressions. Her troponins and other labs were drawn. Troponins were 0.05. She at that point did not have any shortness of breath, diaphoresis, fever, chills, nausea, vomiting, abdominal pain. She had been started on a heparin drip and transthoracic echocardiogram, which was completed this morning, results are stated as above. When I evaluated her, she was completely asymptomatic. Her vital signs were stable. I spoke over her case with Dr. Ospina and he felt that despite the fact that she had in classic chest pain with a previous FL because her echo was normal and she was asymptomatic now, he does not feel that she requires a stress test. I did speak with the patient to some degree about the possibility of what the course of treatment could be should her chest pain return in the future and the fact that she would likely get a stress test at that time. If it was shown that she would need a cardiac catheterization, she would need to rescind her DNR status, which she was hesitant to do; therefore, I encouraged the patient to think about what her goals of care are whether or not that includes invasive procedures. I did speak to the patient about medically optimizing her to minimize the risk of this happening again. Otherwise, she was in good spirits, feeling well and was anxious to get home. REVIEW OF SYSTEMS: All pertinent positives and negatives were addressed in the HPI. PHYSICAL EXAMINATION: Vital Signs: 98.2 Fahrenheit, 58 pulse, 14 respirations , 96% oxygen on room air, 134/57 blood pressure. General: This is a well- developed older woman, seen sitting up in bed, in no acute distress noted. HEENT: Conjunctivae pink and moist. PERRLA. EOMs intact. Mucous membranes moist. Oropharynx clear. Neck is supple. Cardiac: S1, S2 present. Heart rate regular. No murmurs, gallops, or rubs appreciated. No JVD. Respiratory: Lung sounds clear throughout bilaterally on room air. Abdomen: Soft, nontender , nondistended with positive bowel sounds x4. Musculoskeletal: No clubbing or cyanosis of the digits. 2+ positive pedal pulses. Neurologic: No focal deficits appreciated. Sensation intact to light touch. Psych: Alert and oriented x4. Thought content organized. DISCHARGE PLAN: Her diet is to go home with a consistent carb, heart healthy diet. Her activity is as tolerated without any restrictions. She is to return to the emergency room should she develop any chest pain or shortness of breath. She is to contact her PCP should she develop any myalgias. PLAN FOR EACH CONDITION: 1. Chest pain without any evidence for an acute FL. Per Dr. Ospina, there was no evidence for need for cardiac catheterization or to perform a stress test as the patient had had recent stress test in December and was deemed a low risk. She was switched from rosuvastatin to atorvastatin at a high intensity and was started on aspirin 81 mg. She is to follow up with Dr. Ospina in the next 4 to 6 weeks. 2. Diabetes type 2. Her hemoglobin A1c was elevated at 8.4, her goals to be below 8, which I spoke about with the patient. She normally takes glipizide 5 mg twice a day. I increased her morning dosage to 10 mg and I would like her to follow up with her PCP for further monitoring as her glycemic control could be optimized. 3. Hypertension. Her admitting blood pressure was in the 190s systolically. She stated that within the past few months, she had been taken off of her ARB medications because she had been getting 2 orthostatic and feeling dizzy and lightheaded when ambulating. However, I feel that her high blood pressure is what contributed to her chest pain and so I felt it necessary to give her something in addition to her normal metoprolol succinate that she takes, though I started her on 2.5 mg of amlodipine with instructions to check her blood pressure periodically at various different times during the day and particularly if she becomes dizzy or lightheaded to check it at that time with the understanding that she is to call her primary care physician should she become symptomatic and may need to be taken off of her amlodipine. MEDICATIONS: New medications upon discharge: 1. Atorvastatin 80 mg p.o. daily. 2. Glipizide 10 mg p.o. q.a.m. 3. Aspirin 81 mg p.o. daily. Medications to continue upon discharge: 1. Glipizide 5 mg p.o. at bedtime. 2. Metoprolol succinate 25 mg p.o. daily. 3. Tylenol 650 mg p.o. q.6 hours p.r.n. CONDITION UPON DISCHARGE: Stable. DISPOSITION: Home. TIME SPENT: Time spent on the patient is about 60 minutes with 30 of that spent [id number]. BRADLY GIDEON, [place] [id number]/CPS #: [id number] MTDD
[2019-05-11] MEDS ORDERED: glipiZIDE TAB* 5 MG PO SCH (09:00)
== END 2019-05-10 12:35 | disposition home or self-care (01) ==
LOC: ED 01:53 → MEDTELE 04:39
PROVIDERS: ADMIT Internal Medicine; ATTEND Internal Medicine
DX: R07.9 Chest pain, unspecified (principal); I12.9 Hypertensive chronic kidney disease with stage 1 through stage 4 chronic kidney disease, or unspecified chronic kidney disease; E11.22 Type 2 diabetes mellitus with diabetic chronic kidney disease; N18.3 Chronic kidney disease, stage 3 (moderate); E78.5 Hyperlipidemia, unspecified; I25.2 Old myocardial infarction; M79.602 Pain in left arm; I25.10 Atherosclerotic heart disease of native coronary artery without angina pectoris; R79.89 Other specified abnormal findings of blood chemistry; E78.00 Pure hypercholesterolemia, unspecified; Z88.1 Allergy status to other antibiotic agents; Z87.891 Personal history of nicotine dependence; Z79.82 Long term (current) use of aspirin; M54.9 Dorsalgia, unspecified
CPT/HCPCS: 36415; 71046; 80053; 80061; 83036; 83605; 83880; 84484; 85025; 85730; 93005; 93306; 96360; 96361; 99284; A9270-GY; G0378; J1644

== ENCOUNTER 2021-05-17 00:57 | Observation (INO) ==
[2021-05-17 01:26] LABS: ABS Basophils 0.1 10^3/ul (0-0.2); ABS Eosinophils 0.2 10^3/ul (0-0.6); ABS Lymphocytes 1.7 10^3/ul (1.0-4.8); ABS Monocytes 0.9 10^3/ul (0-0.8); ABS Neutrophils 5.4 10^3/ul (1.5-7.7); Eosinophil % 2.9 %; Hematocrit 41 % (35-47); Lymphocyte % 20.2 %; Mean Corpuscular HGB Conc 35 g/dL (31-36); Mean Corpuscular Hemoglobin 31 pg (27-31); Mean Corpuscular Volume 90 fL (80-97); Mean Platelet Volume 10.6 fL (7.4-10.4); Platelet Count 169 10^3/uL (150-450); Red Blood Count 4.54 10^6 /uL (3.70-4.87); Red Cell Distribution Width 14 % (10-15); White Blood Count 8.3 10^3/uL (3.5-10.8)
[2021-05-17 01:49] LABS: ALT 18 U/L (7-52); Albumin 4.4 g/dL (3.2-5.2); Albumin/Globulin Ratio 1.6 (1-3); Alkaline Phosphatase 94 U/L (35-149); Blood Urea Nitrogen 18 mg/dL (6-24); CO2 Carbon Dioxide 30 mmol/L (22-32); Calcium 9.5 mg/dL (8.6-10.3); Chloride 101 mmol/L (101-111); Globulin 2.8 g/dL (2-4); Glucose 119 mg/dL (70-100); Sodium 139 mmol/L (135-145); Total Protein 7.2 g/dL (6.4-8.9); eGFR CKD-EPI 42.2 (>60)
[2021-05-17 02:01] LABS: Troponin I 0.05 ng/mL (<0.03)
[2021-05-17 02:25] LABS: Potassium 3.9 mmol/L (3.5-5.0)
[2021-05-17 02:26] LABS: AST 29 U/L (13-39); Anion Gap 8 mmol/L (2-11)
[2021-05-17 05:00] LABS: Troponin I 0.05 ng/mL (<0.03)
[2021-05-17] MEDS ORDERED: Ondansetron 4 mg VIAL 2 MG/ML 2 ml VIAL IV PRN (05:43)
[2021-05-17] MEDS ORDERED: Dextrose 50% Syringe 50 ml 25 GM/50 ML SYRINGE IV PUSH PRN (05:47)
[2021-05-17] MEDS ORDERED: Enoxaparin 40 MG/0.4 ML SYR SUBCUT SCH ×2 (06:00)
[2021-05-17 08:07] LABS: Rapid COVID-19 Molecular Undetected (Undetected)
[2021-05-17 09:45] LABS: Troponin I 0.04 ng/mL (<0.03)
[2021-05-17] MEDS ORDERED: Regadenoson 0.4 MG/5 ML SYRINGE ONE (14:31)
[2021-05-17 16:34] VITALS: BP 138/68
== END 2021-05-17 17:00 | disposition home or self-care (01) ==
LOC: ED 00:57 → EDHOLD 00:57 → SUATTDRO 05:43 → MEDTELE 15:50
PROVIDERS: ADMIT Hospitalist; ATTEND Internal Medicine

== ENCOUNTER 2022-09-19 16:16 | Observation (INO) ==
[2022-09-19 16:57] LABS: ABS Basophils 0.1 10^3/uL (0.0-0.1); ABS Eosinophils 0.3 10^3/uL (0.0-0.5); ABS Lymphocytes 1.7 10^3/uL (1.0-4.8); ABS Monocytes 0.9 10^3/uL (0.0-0.9); ABS Neutrophils 4.3 10^3/uL (1.5-7.6); Eosinophil % 3.9 %; Hematocrit 41.4 % (35-45); Hemoglobin 13.9 g/dL (11.5-14.3); Lymphocyte % 23.5 %; Mean Corpuscular Hemoglobin 29.6 pg (27-33); Mean Corpuscular Hgb Conc 33.6 g/dL (31-36); Mean Platelet Volume 10.6 fL (7.5-11.2); Nucleated Red Blood Cells % 0.1 /100 WBC (0.0-0.4); Platelet Count 179 10^3/uL (150-450); Red Blood Count 4.71 10^6/uL (3.63-4.92); Red Cell Distribution Width 13.5 % (12-17); White Blood Count 7.3 10^3/uL (3.8-11.8)
[2022-09-19 17:02] LABS: INR 1.05 (0.88-1.18)
[2022-09-19 17:17] LABS: Albumin/Globulin Ratio 1.4 (1-3); Calcium 8.9 mg/dL (8.6-10.3); Creatinine, Serum 1.18 mg/dL (0.51-0.95); Globulin 2.8 g/dL (2-4); Potassium 3.9 mmol/L (3.5-5.0); Total Bilirubin 0.5 mg/dL (0.2-1.0); Total Protein 6.8 g/dL (6.4-8.9); eGFR CKD-EPI 44.7 (>60)
[2022-09-19 18:29] LABS: High Sensitivity Troponin 1 Hr 16 pg/mL (<15)
[2022-09-19] MEDS ORDERED: Enoxaparin 40 MG/0.4 ML SYR SUBCUT SCH (20:00)
[2022-09-19] MEDS ORDERED: Dextrose 50% Syringe 50 ml 25 GM/50 ML SYRINGE IV PUSH PRN (23:55)
[2022-09-20 05:44] LABS: Magnesium 1.8 mg/dL (1.9-2.7)
[2022-09-20] MEDS ORDERED: Magnesium Sulfate 2 gm BAG 2 GM/50 ML BAG IVPB ONE (09:47)
[2022-09-20] MEDS ORDERED: Potassium Chlor 20 meq TAB.ER PO ONE (09:47)
[2022-09-20 17:35] VITALS: BP 136/51
== END 2022-09-20 14:35 | disposition home or self-care (01) ==
LOC: ED 16:16 → INTOOBSV 19:32 → EDHOLD 19:32 → SUATTDRO 19:32 → MEDTELE 21:00
PROVIDERS: ADMIT Internal Medicine; ATTEND Internal Medicine

== ENCOUNTER 2022-12-17 09:53 | Inpatient (IN) ==
[2022-12-17 11:37] LABS: ABS Basophils 0.1 10^3/uL (0.0-0.1); ABS Eosinophils 0.2 10^3/uL (0.0-0.5); ABS Lymphocytes 1.2 10^3/uL (1.0-4.8); ABS Neutrophils 8.8 10^3/uL (1.5-7.6); ABS Nucleated RBC 0.01 10^3/ul; Eosinophil % 1.7 %; Hematocrit 39.5 % (35-45); Hemoglobin 13.3 g/dL (11.5-14.3); Lymphocyte % 10.6 %; Mean Corpuscular Hemoglobin 29.2 pg (27-33); Mean Corpuscular Hgb Conc 33.7 g/dL (31-36); Mean Corpuscular Volume 86.8 fL (80-97); Mean Platelet Volume 9.7 fL (7.5-11.2); Nucleated Red Blood Cells % 0.1 /100 WBC (0.0-0.4); Platelet Count 168 10^3/uL (150-450); Red Blood Count 4.56 10^6/uL (3.63-4.92); Red Cell Distribution Width 14.3 % (12-17); White Blood Count 11.3 10^3/uL (3.8-11.8)
[2022-12-17 11:45] LABS: INR 1.09 (0.83-1.13)
[2022-12-17 11:58] LABS: Albumin 4.1 g/dL (3.2-5.2); Calcium 9.1 mg/dL (8.6-10.3); Total Bilirubin 0.5 mg/dL (0.2-1.0)
[2022-12-17 12:03] LABS: Albumin/Globulin Ratio 1.5 (1-3); Creatinine, Serum 1.13 mg/dL (0.51-0.95); Globulin 2.8 g/dL (2-4); Total Protein 6.9 g/dL (6.4-8.9); eGFR CKD-EPI 47.1 (>60)
[2022-12-17] MEDS ORDERED: Furosemide 20 mg/2 ml IV VIAL IV SLOW PU ONE (12:20)
[2022-12-17 13:06] LABS: High Sensitivity Troponin 1 Hr 22 pg/mL (<15)
[2022-12-17] MEDS ORDERED: Magnesium Sulfate 2 gm BAG 2 GM/50 ML BAG IVPB ONE (14:45)
[2022-12-17] MEDS ORDERED: Dextrose 50% Syringe 50 ml 25 GM/50 ML SYRINGE IV PUSH PRN (15:27)
[2022-12-17] MEDS ORDERED: Enoxaparin 40 MG/0.4 ML SYR SUBCUT SCH (16:00)
[2022-12-17] MEDS ORDERED: Furosemide 40 mg/4 ml IV VIAL IV ONE (22:36)
[2022-12-17] MEDS: Nystatin TOP POWDER 15 GM BTL TOPICAL SCH (23:30)
[2022-12-18 06:20] LABS: ABS Basophils 0.1 10^3/uL (0.0-0.1); ABS Eosinophils 0.3 10^3/uL (0.0-0.5); ABS Lymphocytes 1.2 10^3/uL (1.0-4.8); ABS Neutrophils 6.9 10^3/uL (1.5-7.6); Eosinophil % 3.3 %; Hematocrit 36.8 % (35-45); Hemoglobin 12.6 g/dL (11.5-14.3); Lymphocyte % 12.2 %; Mean Corpuscular Hemoglobin 29.8 pg (27-33); Mean Corpuscular Hgb Conc 34.1 g/dL (31-36); Mean Corpuscular Volume 87.4 fL (80-97); Mean Platelet Volume 9.9 fL (7.5-11.2); Platelet Count 145 10^3/uL (150-450); Red Blood Count 4.21 10^6/uL (3.63-4.92); Red Cell Distribution Width 14.6 % (12-17); White Blood Count 9.5 10^3/uL (3.8-11.8)
[2022-12-18 06:38] LABS: Creatinine, Serum 1.1 mg/dL (0.51-0.95); eGFR CKD-EPI 48.6 (>60)
[2022-12-18] MEDS ORDERED: Furosemide 40 mg/4 ml IV VIAL IV SLOW PU ONE (09:00)
[2022-12-18] MEDS: Nystatin TOP POWDER 15 GM BTL TOPICAL SCH ×2 (09:31→21:26)
[2022-12-18] MEDS: Albuterol HFA INHALER 8 gm MDI INH PRN (18:56)
[2022-12-18] MEDS ORDERED: Senna TAB 8.6 mg TAB PO SCH (23:00)
[2022-12-18] MEDS ORDERED: Furosemide 40 mg/4 ml IV VIAL IV ONE (23:50)
[2022-12-19] MEDS ORDERED: Senna TAB 8.6 mg TAB PO PRN (05:08)
[2022-12-19] MEDS ORDERED: Influenza vaccine *QUAD* *2023-24* 0.5 ML SYRINGE IM ONE (09:00)
[2022-12-19 09:04] LABS: ABS Basophils 0.1 10^3/uL (0.0-0.1); ABS Eosinophils 0.6 10^3/uL (0.0-0.5); ABS Lymphocytes 1.5 10^3/uL (1.0-4.8); ABS Nucleated RBC 0.01 10^3/ul; Eosinophil % 7.4 %; Hematocrit 40.2 % (35-45); Hemoglobin 13.8 g/dL (11.5-14.3); Lymphocyte % 18.6 %; Mean Corpuscular Hemoglobin 29.6 pg (27-33); Mean Corpuscular Hgb Conc 34.4 g/dL (31-36); Mean Corpuscular Volume 86.1 fL (80-97); Mean Platelet Volume 9.8 fL (7.5-11.2); Nucleated Red Blood Cells % 0.2 /100 WBC (0.0-0.4); Platelet Count 151 10^3/uL (150-450); Red Blood Count 4.67 10^6/uL (3.63-4.92); Red Cell Distribution Width 14.4 % (12-17); White Blood Count 8.2 10^3/uL (3.8-11.8)
[2022-12-19 09:08] LABS: Calcium 8.9 mg/dL (8.6-10.3); Creatinine, Serum 1.19 mg/dL (0.51-0.95); Magnesium 1.9 mg/dL (1.9-2.7); Potassium 4.4 mmol/L (3.5-5.0); eGFR CKD-EPI 44.3 (>60)
[2022-12-19] MEDS: Nystatin TOP POWDER 15 GM BTL TOPICAL SCH ×2 (10:28→22:24)
[2022-12-19] MEDS: Enoxaparin 40 MG/0.4 ML SYR SUBCUT SCH (17:52)
[2022-12-20 07:08] LABS: ABS Basophils 0.1 10^3/uL (0.0-0.1); ABS Eosinophils 0.4 10^3/uL (0.0-0.5); ABS Lymphocytes 1.2 10^3/uL (1.0-4.8); ABS Monocytes 1.1 10^3/uL (0.0-0.9); ABS Neutrophils 3.9 10^3/uL (1.5-7.6); Hematocrit 37.5 % (35-45); Hemoglobin 12.8 g/dL (11.5-14.3); Lymphocyte % 18.4 %; Mean Corpuscular Hemoglobin 29.4 pg (27-33); Mean Corpuscular Hgb Conc 34.2 g/dL (31-36); Mean Platelet Volume 9.8 fL (7.5-11.2); Nucleated Red Blood Cells % 0.1 /100 WBC (0.0-0.4); Platelet Count 153 10^3/uL (150-450); Red Blood Count 4.36 10^6/uL (3.63-4.92); Red Cell Distribution Width 14.5 % (12-17); White Blood Count 6.6 10^3/uL (3.8-11.8)
[2022-12-20 07:32] LABS: Calcium 8.9 mg/dL (8.6-10.3); Creatinine, Serum 1.07 mg/dL (0.51-0.95); Magnesium 1.9 mg/dL (1.9-2.7); Potassium 3.6 mmol/L (3.5-5.0); eGFR CKD-EPI 50.3 (>60)
[2022-12-20] MEDS: Nystatin TOP POWDER 15 GM BTL TOPICAL SCH ×2 (10:11→20:40)
[2022-12-20] MEDS: Albuterol HFA INHALER 8 gm MDI INH PRN (13:17)
[2022-12-20] MEDS: Enoxaparin 40 MG/0.4 ML SYR SUBCUT SCH (13:38)
[2022-12-21] MEDS: Albuterol HFA INHALER 8 gm MDI INH PRN (02:23)
[2022-12-21 06:52] LABS: ABS Basophils 0.1 10^3/uL (0.0-0.1); ABS Eosinophils 0.3 10^3/uL (0.0-0.5); ABS Lymphocytes 1.3 10^3/uL (1.0-4.8); ABS Monocytes 0.8 10^3/uL (0.0-0.9); ABS Neutrophils 4.1 10^3/uL (1.5-7.6); Eosinophil % 4.1 %; Hematocrit 36.3 % (35-45); Hemoglobin 12.5 g/dL (11.5-14.3); Lymphocyte % 19.4 %; Mean Corpuscular Hemoglobin 29.3 pg (27-33); Mean Corpuscular Hgb Conc 34.3 g/dL (31-36); Mean Corpuscular Volume 85.4 fL (80-97); Mean Platelet Volume 9.7 fL (7.5-11.2); Platelet Count 167 10^3/uL (150-450); Red Blood Count 4.25 10^6/uL (3.63-4.92); Red Cell Distribution Width 13.8 % (12-17); White Blood Count 6.5 10^3/uL (3.8-11.8)
[2022-12-21 07:19] LABS: Creatinine, Serum 1.1 mg/dL (0.51-0.95); Potassium 3.3 mmol/L (3.5-5.0); eGFR CKD-EPI 48.6 (>60)
[2022-12-21] MEDS ORDERED: Potassium Chlor 20 meq TAB.ER PO ONE (07:36)
[2022-12-21] MEDS: Nystatin TOP POWDER 15 GM BTL TOPICAL SCH ×2 (09:27→20:16)
[2022-12-21] MEDS: SPIRIVA Respimat (tiotropium) 2.5 mcg/inh Inhaler INH SCH (11:27)
[2022-12-21] MEDS: Enoxaparin 40 MG/0.4 ML SYR SUBCUT SCH (14:26)
[2022-12-22] MEDS: Albuterol HFA INHALER 8 gm MDI INH PRN (02:27)
[2022-12-22 06:49] LABS: ABS Basophils 0.1 10^3/uL (0.0-0.1); ABS Eosinophils 0.3 10^3/uL (0.0-0.5); ABS Lymphocytes 1.3 10^3/uL (1.0-4.8); ABS Monocytes 0.8 10^3/uL (0.0-0.9); ABS Neutrophils 4.5 10^3/uL (1.5-7.6); Eosinophil % 4.3 %; Hematocrit 36.5 % (35-45); Hemoglobin 12.6 g/dL (11.5-14.3); Lymphocyte % 18.9 %; Mean Corpuscular Hemoglobin 29.7 pg (27-33); Mean Corpuscular Hgb Conc 34.5 g/dL (31-36); Mean Corpuscular Volume 86.3 fL (80-97); Platelet Count 182 10^3/uL (150-450); Red Blood Count 4.23 10^6/uL (3.63-4.92); Red Cell Distribution Width 14.3 % (12-17)
[2022-12-22 06:55] LABS: Creatinine, Serum 1.1 mg/dL (0.51-0.95); Magnesium 2.1 mg/dL (1.9-2.7); eGFR CKD-EPI 48.6 (>60)
[2022-12-22] MEDS: SPIRIVA Respimat (tiotropium) 2.5 mcg/inh Inhaler INH SCH (07:56)
[2022-12-22] MEDS: Nystatin TOP POWDER 15 GM BTL TOPICAL SCH ×2 (08:18→20:47)
[2022-12-22] MEDS: Enoxaparin 40 MG/0.4 ML SYR SUBCUT SCH (15:00)
[2022-12-23 06:36] LABS: ABS Lymphocytes 1.2 10^3/uL (1.0-4.8); ABS Monocytes 0.5 10^3/uL (0.0-0.9); ABS Neutrophils 6.6 10^3/uL (1.5-7.6); ABS Nucleated RBC 0.01 10^3/ul; Hemoglobin 12.7 g/dL (11.5-14.3); Lymphocyte % 14.2 %; Mean Corpuscular Hemoglobin 29.5 pg (27-33); Mean Corpuscular Hgb Conc 34.4 g/dL (31-36); Mean Corpuscular Volume 85.7 fL (80-97); Mean Platelet Volume 9.8 fL (7.5-11.2); Nucleated Red Blood Cells % 0.1 /100 WBC (0.0-0.4); Platelet Count 187 10^3/uL (150-450); Red Blood Count 4.32 10^6/uL (3.63-4.92); White Blood Count 8.3 10^3/uL (3.8-11.8)
[2022-12-23 06:43] LABS: Calcium 9.5 mg/dL (8.6-10.3); Creatinine, Serum 1.02 mg/dL (0.51-0.95); Magnesium 2.2 mg/dL (1.9-2.7); Potassium 4.2 mmol/L (3.5-5.0); eGFR CKD-EPI 53.2 (>60)
[2022-12-23] MEDS: SPIRIVA Respimat (tiotropium) 2.5 mcg/inh Inhaler INH SCH (07:58)
[2022-12-23 09:49] VITALS: BP 142/56
[2022-12-23] MEDS: Nystatin TOP POWDER 15 GM BTL TOPICAL SCH (10:04)
== END 2022-12-23 15:24 | disposition home or self-care (01) | DRG 291 ==
LOC: EDHOLD 09:53 → ED 09:53 → MEDTELE 17:35 → SUATTDRO 12-19 10:06
PROVIDERS: ADMIT Student in an Organized Health Care Education/Training Program; ATTEND Internal Medicine

== ENCOUNTER 2023-01-10 20:44 | Inpatient (IN) ==
[2023-01-10 23:02] LABS: ABS Basophils 0.1 10^3/uL (0.0-0.1); ABS Eosinophils 0.3 10^3/uL (0.0-0.5); ABS Lymphocytes 1.5 10^3/uL (1.0-4.8); ABS Monocytes 0.7 10^3/uL (0.0-0.9); ABS Neutrophils 4.9 10^3/uL (1.5-7.6); Eosinophil % 3.8 %; Hematocrit 40.4 % (35-45); Hemoglobin 13.8 g/dL (11.5-14.3); Lymphocyte % 20.4 %; Mean Corpuscular Hemoglobin 29.3 pg (27-33); Mean Corpuscular Hgb Conc 34.2 g/dL (31-36); Mean Corpuscular Volume 85.6 fL (80-97); Mean Platelet Volume 9.6 fL (7.5-11.2); Nucleated Red Blood Cells % 0.1 %/100WBC (0.0-0.8); Platelet Count 171 10^3/uL (150-450); Red Blood Count 4.72 10^6/uL (3.63-4.92); Red Cell Distribution Width 14.5 % (12-17); White Blood Count 7.5 10^3/uL (3.8-11.8)
[2023-01-10 23:19] LABS: Albumin 4.2 g/dL (3.2-5.2); Albumin/Globulin Ratio 1.4 (1-3); Calcium 9.6 mg/dL (8.6-10.3); Creatinine, Serum 1.24 mg/dL (0.51-0.95); Potassium 3.6 mmol/L (3.5-5.0); Total Bilirubin 0.5 mg/dL (0.2-1.0); Total Protein 7.2 g/dL (6.4-8.9); eGFR CKD-EPI 42.1 (>60)
[2023-01-11 00:50] LABS: High Sensitivity Troponin 1 Hr 21 pg/mL (<15)
[2023-01-11] MEDS ORDERED: Potassium Chlor 20 meq TAB.ER PO ONE (02:57)
[2023-01-11] MEDS ORDERED: Dextrose 50% Syringe 50 ml 25 GM/50 ML SYRINGE IV PUSH PRN (03:26)
[2023-01-11] MEDS ORDERED: Enoxaparin 40 MG/0.4 ML SYR SUBCUT SCH (06:00)
[2023-01-11 10:09] VITALS: BP 122/54
== END 2023-01-11 11:40 | disposition home or self-care (01) | DRG 309 ==
LOC: ED 20:44 → SUATTDRO 01-11 02:51 → EDHOLD 01-11 02:51 → MEDTELE 01-11 02:51
PROVIDERS: ADMIT Internal Medicine; ATTEND Student in an Organized Health Care Education/Training Program

== ENCOUNTER 2023-11-08 15:12 | Inpatient (IN) ==
[2023-11-08 15:59] LABS: ABS Basophils 0.1 10^3/uL (0.0-0.1); ABS Eosinophils 0.2 10^3/uL (0.0-0.5); ABS Lymphocytes 1.3 10^3/uL (1.0-4.8); ABS Monocytes 0.7 10^3/uL (0.0-0.9); ABS Neutrophils 5.5 10^3/uL (1.5-7.6); Eosinophil % 2.1 %; Hematocrit 41.8 % (35-45); Hemoglobin 13.8 g/dL (11.5-14.3); Lymphocyte % 17.1 %; Mean Corpuscular Hemoglobin 29.6 pg (27-33); Mean Corpuscular Hgb Conc 33.1 g/dL (31-36); Mean Corpuscular Volume 89.5 fL (80-97); Mean Platelet Volume 10.7 fL (7.5-11.2); Platelet Count 161 10^3/uL (150-450); Red Blood Count 4.67 10^6/uL (3.63-4.92); Red Cell Distribution Width 13.5 % (12-17); White Blood Count 7.7 10^3/uL (3.8-11.8)
[2023-11-08 16:14] LABS: Albumin 3.9 g/dL (3.2-5.2); Albumin/Globulin Ratio 1.8 (1-3); Calcium 9.2 mg/dL (8.6-10.3); Creatinine, Serum 1.25 mg/dL (0.51-0.95); Globulin 2.2 g/dL (2-4); Potassium 3.9 mmol/L (3.5-5.0); Total Bilirubin 0.6 mg/dL (0.2-1.0); Total Protein 6.1 g/dL (6.4-8.9); eGFR CKD-EPI 41.5 (>60)
[2023-11-08 16:19] LABS: INR 1.07 (0.83-1.13)
[2023-11-08 17:01] LABS: Magnesium 1.8 mg/dL (1.9-2.7)
[2023-11-08 17:14] LABS: High Sensitivity Troponin 1 Hr 27 pg/mL (<15)
[2023-11-08 17:17] LABS: TSH Ultra Thyroid Stim Horm 2.31 mcIU/mL (0.34-5.60)
[2023-11-08 17:19] LABS: Free T4 0.84 ng/dL (0.61-1.12)
[2023-11-08] MEDS: hydrALAZINE 20 mg/ml 1 ML Vial IV IV SLOW PU PRN (19:24)
[2023-11-08] MEDS: Heparin 5000 UNITS/ML 1 mL VIAL SUBCUT SCH (21:30)
[2023-11-09] MEDS: ceFAZolin 2 GM PREMIX 2 GM/50 ML BAG IV ONE (12:34)
[2023-11-09 14:48] LABS: Calcium 9.4 mg/dL (8.6-10.3); Creatinine, Serum 1.35 mg/dL (0.51-0.95); Magnesium 1.9 mg/dL (1.9-2.7); Potassium 4.1 mmol/L (3.5-5.0); eGFR CKD-EPI 37.8 (>60)
[2023-11-09] MEDS: Sulfur Hexaflouride MICROSPHR 25 MG VIAL IV ONE (16:30)
[2023-11-10 06:04] LABS: ABS Basophils 0.1 10^3/uL (0.0-0.1); ABS Eosinophils 0.3 10^3/uL (0.0-0.5); ABS Lymphocytes 1.7 10^3/uL (1.0-4.8); ABS Monocytes 0.8 10^3/uL (0.0-0.9); ABS Neutrophils 4.2 10^3/uL (1.5-7.6); Hematocrit 41.1 % (35-45); Hemoglobin 13.7 g/dL (11.5-14.3); Lymphocyte % 23.7 %; Mean Corpuscular Hemoglobin 29.7 pg (27-33); Mean Corpuscular Hgb Conc 33.3 g/dL (31-36); Mean Corpuscular Volume 89.3 fL (80-97); Mean Platelet Volume 11.2 fL (7.5-11.2); Platelet Count 153 10^3/uL (150-450); Red Cell Distribution Width 13.5 % (12-17)
[2023-11-10 06:11] LABS: Calcium 8.8 mg/dL (8.6-10.3); Creatinine, Serum 1.2 mg/dL (0.51-0.95); Potassium 4.1 mmol/L (3.5-5.0); eGFR CKD-EPI 43.5 (>60)
[2023-11-10] MEDS: NS 0.9% 1000 ml BAG 1,000 ML IV SCH (08:08)
[2023-11-10] MEDS: Polyethylene Glycol 3350 17 GM PACKET PO PRN (17:08)
[2023-11-11] MEDS ORDERED: ceFAZolin 2 GM PREMIX 2 GM/50 ML BAG ONE (09:20)
[2023-11-11] MEDS ORDERED: Iohexol 300 (CONTRAST) 10 ML SDV ONE (09:24)
[2023-11-11] MEDS ORDERED: fentaNYL 100 mcg/2 ml 50 MCG/ML VIAL ONE (09:24)
[2023-11-11] MEDS ORDERED: Midazolam 5 mg/5 ml VIAL 1 mg/ml 5 ml VIAL (5 mg) ONE (09:24)
[2023-11-11] MEDS ORDERED: Lidocaine 1% VIAL 10 MG/ML 30 ML VIAL ONE (09:37)
[2023-11-11] MEDS: ceFAZolin VIAL 1 GM in NS 0.9% 50 ML 50 ML IVPB SCH (17:38)
[2023-11-13] MEDS ORDERED: hydrALAZINE 20 mg/ml 1 ML Vial IV IV SLOW PU PRN (18:29)
[2023-11-15 17:41] LABS: Rapid COVID-19 Molecular Undetected (Undetected)
[2023-11-19 14:15] LABS: Rapid COVID-19 Molecular Undetected (Undetected)
[2023-11-20 08:42] VITALS: BP 145/57
== END 2023-11-20 09:25 | DRG 243 ==
LOC: ED 15:12 → EDHOLD 15:12 → SUATTDRO 17:53 → EDHOLD 18:08 → MEDTELE 11-09 14:49 → SUATTDRO 11-09 15:25
PROVIDERS: ADMIT Internal Medicine; ATTEND Hospitalist